=== PATIENT | male | born 1975 | race Caucasian/White ===

== ENCOUNTER 2019-07-28 11:28 | Inpatient (IN) | payer MEDICAID, OTHER ==
[~2019-07-28] VITALS: Ht 180.3 cm; Wt 92.1 kg
[2019-07-28] MEDS ORDERED: OLANZapine ORAL DISINTEGRATING TAB 5MG PO PRN (15:00)
[2019-07-28] MEDS ORDERED: MAALOX 30 ML SUSP *UDC PO PRN (15:15)
[2019-07-28] MEDS ORDERED: ACETAMINOPHEN TAB 650MG DOSE (2X325MG) PO PRN (15:15)
[2019-07-28] MEDS ORDERED: MOM 30ML SUSPENSION UDC PO PRN (15:15)
[2019-07-28 15:58] VITALS: BP 138/95
[2019-07-28 19:00] VITALS: BP 143/89
[2019-07-28] MEDS ORDERED: traZODone 50 MG TAB PO PRN (21:00)
[2019-07-28] MEDS: PALIPERIDONE 3 MG ER TAB (INVEGA) PO SCH (21:39)
[2019-07-28 21:49] VITALS: BP 140/86
[2019-07-28] MEDS: LORazepam 1 MG TAB PO SCH (22:01)
[2019-07-29 00:21] LABS: BASO # 0.1 10^3/uL (0.0-0.2); BASO % 0.6 % (0.0-1.0); EOS # 0.1 10^3/uL (0.0-0.5); EOS % 0.8 % (0.0-3.0); HEMATOCRIT 52.5 % (42.0-52.0); HEMOGLOBIN 16.5 g/dl (13.5-17.5); LYMPH # 2.5 10^3/uL (1.5-5.0); LYMPH % 22.7 % (24.0-44.0); MEAN CORPUSCULAR HEMOGLOBIN 28.3 pg (27.0-33.0); MEAN CORPUSCULAR HGB CONC 31.4 g/dl (32.0-36.5); MEAN CORPUSCULAR VOLUME 90.1 fl (80.0-96.0); MONO # 0.7 10^3/uL (0.0-0.8); MONO % 6.4 % (0.0-5.0); NEUTROPHILS # 7.7 10^3/uL (1.5-8.5); NEUTROPHILS % 69.2 % (36.0-66.0); PLATELET COUNT, AUTOMATED 146 10^3/uL (150-450); RED BLOOD COUNT 5.83 10^6/uL (4.30-6.10); WHITE BLOOD COUNT 11.1 10^3/uL (4.0-10.0)
[2019-07-29 00:27] LABS: OSMOLALITY SERUM 300 MOSM/KG (275-295)
[2019-07-29 00:42] LABS: ACETONE/KETONE 4.61 MG/DL (<2.81); ALBUMIN 4.2 GM/DL (3.2-5.2); ALT/SGPT 25 U/L (12-78); BILIRUBIN,TOTAL 0.8 MG/DL (0.2-1.0); BLOOD UREA NITROGEN 18 MG/DL (7-18); CARBON DIOXIDE LEVEL 24 MEQ/L (21-32); CHLORIDE LEVEL 110 MEQ/L (98-107); CREATININE FOR GFR 1.26 MG/DL (0.70-1.30); ETHYL ALCOHOL (ETHANOL) < 0.003 % (0.000-0.010); FREE THYROXINE INDEX 3.9 % (1.4-3.8); GLOMERULAR FILTRATION RATE > 60.0 (>60); GLUCOSE, FASTING 107 MG/DL (70-100); MAGNESIUM LEVEL 2.1 MG/DL (1.8-2.4); POTASSIUM SERUM 3.9 MEQ/L (3.5-5.1); SODIUM LEVEL 144 MEQ/L (136-145); T UPTAKE 36 % (33-40); THYROXINE (T4) 10.7 UG/DL (4.5-12.0); TOTAL PROTEIN 8.1 GM/DL (6.4-8.2)
--- NOTE | 2019-07-29 01:48 | HPEPDOC ---
General Date of Admission Jul 28, 2019 at 15:08 Date of Service: Jul 28, 2019 Chief Complaint The patient is a 43-year-old male Who presented to [facility] as a transfer from [facility] for suicidal thoughts. History of Present Illness Patient is a 43 year old male with a PMHX of Schizophrenia, Depression, Hx of Suicidal attempt (Reported to be with Antifreeze consumption) who presented to the [facility] ER as a transfer from [facility] after he was found to have suicidal thoughts. Patient presented to [facility] and reported he had a sick mind and had thoughts / voices of self-harm. He noted to staff there that he wanted to kill himself with knives. He was evaluated by medicine there and was transferred to our facility for psychiatric inpatient hospitalization. I was called to evaluate the patient after staff reported that he was noted to have possible lethargy and catatonia. Upon evaluation of the patient reported that he still has thoughts of self-harm, but had no specific complaints. Patient appears to be very poor historian. The details of his story do not match what has transpired prior to his arrival. He denied any chest pain, SOB, palpitations, cough, N/V, abdominal pain, C/D or dysuria. Denied fevers/chills. Home Medications No Active Prescriptions or Reported Meds Allergies Coded Allergies: No Known Allergies (Unverified , 07/28/19) Past Medical History Medical History Schizophrenia, Depression, Hx of Suicidal attempt (Reported to be with Antifreeze consumption) Surgical History Patient has denied any prior surgeries; however his history is unverifiable Family History - Patient has denied any prior family history; however again, this remains unverifiable Social History - Denies the use of alcohol, tobacco or illicit drugs - Transfer from [facility] for psychosis and suicidal ideation Review of Systems Other systems 10 point review of systems complete, all negative otherwise stated in HPI Vital Signs - Vitals: BP 140/86, HR 64, RR 16, Sat 95%RA, Temp 97.8F - General: Lying in bed, Limited speech Awake / Alert / Oriented to person only, Flat affect, No eye contact - HEENT: NC, AT, PERRLA - CVS: RRR, +S1S2, - Murmurs / rubs / gallops - Lungs: Fair air entry bilaterally, No appreciable wheezing / rales / rhonchi - Abdomen: Soft, Non-distended, Non-tender, - Extremities: No lower extremity edema, No calf tenderness - Neuro: No focal motor or sensory deficit - Skin: No visible rashes Laboratory Data Labs 24H Laboratory Tests 2 07/29/19 00:00: Immature Granulocyte % (Auto) 0.3, Neutrophils (%) (Auto) 69.2H, Lymphocytes (%) (Auto) 22.7L, Monocytes (%) (Auto) 6.4H, Eosinophils (%) (Auto) 0.8, Basophils (%) (Auto) 0.6, Neutrophils # (Auto) 7.7, Lymphocytes # (Auto) 2.5, Monocytes # (Auto) 0.7, Eosinophils # (Auto) 0.1, Basophils # (Auto) 0.1, Nucleated Red Blood Cells % (auto) 0.0, Anion Gap 10, Glomerular Filtration Rate > 60.0, Osmolality 300H, Lactic Acid Level 1.5, Calcium Level 9.0, Magnesium Level 2.1, Total Bilirubin 0.8, Aspartate Amino Transf (AST/SGOT) 12, Alanine Aminotransferase (ALT/SGPT) 25, Alkaline Phosphatase 114, Total Protein 8.1, Albumin 4.2, Albumin/Globulin Ratio 1.08, Thyroid Stimulating Hormone (TSH) 5.110H, Free Thyroxine Index 3.9H, Thyroxine (T4) 10.7, Triiodothyronine (T3) Uptake 36, Ethyl Alcohol Level < 0.003, B-Hydroxybutyrate 4.61H CBC/BMP Laboratory Tests 07/29/19 00:00 Plan / VTE VTE Prophylaxis Ordered?: Yes Plan Plan Suicidal ideation / Schizophrenia - Patient presented as a transfer from [facility] for suicidal ideatio n/psychosis - Patient was evaluated by medical personnel at [facility] and cleared for transfer to some [facility] - Patient was subsequently brought to [facility] ER and admitted to [facility] by Dr. Marrufo - This is currently being managed by psychiatry Lethargy - possibly 2/2 medications received, possibly 2/2 consumption of other - As called by [facility] you to evaluate patient for lethargy/catatonia - Currently patient appears to be hemodynamically stable and afebrile - Patient is not fully oriented; remains oriented only to person - Lab work completed at [facility] did reveal an elevation of his anion gap (21), suppression of bicarbonate (19), mild elevation of WBC (11. 7), osmolality (289), UA was negative for infection - but did reveal 3+ Ketones - Will repeat lab work here today; CBC / CMP / Mg / Osmolality / Lactic acid / Ethylene glycol / Acetate / Ketones / Ethanol DVT prophylaxis - Will c/w early ambulation [employer] was present for the duration of his history and physical examination Will continue to follow GARTH SANTO MD Jul 29, 2019 01:48
[2019-07-29 03:53] VITALS: BP 140/91
[2019-07-29] MEDS: LORazepam 1 MG TAB PO SCH ×3 (03:59→18:18)
[2019-07-29 06:22] VITALS: BP 128/72
[2019-07-29] MEDS: NICOTINE 21MG/24HR 1 EA TRANSDERMAL TD SCH (09:00)
[2019-07-29] MEDS: PALIPERIDONE 3 MG ER TAB (INVEGA) PO SCH (09:12)
--- NOTE | 2019-07-29 10:23 | MHHPEPDOC ---
[facility] History & Physical History and Physical DATE OF ADMISSION: Jul 28, 2019 at 15:08 New Patient Bang Li MRN: N/A Date of : N/A Date of Service: 07/29/2019 Chief Complaint "..." History of Present Illness The patient a 43-year-old man who was transferred from [facility], is brought to our inpatient unit due to bizarre behavior. He was brought in initially to [place] due to significant bizarre actions such as going into a neighbor's house and becoming mute, shaking backwards and forwards, engaging in unusual behavior. He was brought in and assessed where he was brought in for admission. He reportedly has a diagnosis of schizophrenia, however, he is completely catatonic at this time and unable to engage in any meaningful interview other than repeat the words "I want to go home." Thus, the information below was taken from the chart and extracted as appropriate. Review Of Systems Unable to determine due to patient's significant impairment. Past Psychiatric History Reportedly has a history of schizophrenia with multiple admissions to [facility] in the past. Per chart appears to report that he has had multiple suicide attempts 5 or 6 times by stabbing. Allergies Please see below. Family Psychiatric History Reportedly has a sister and a niece that has attempted suicide, but no history of substance problems reported. Social History The patient is a never man who is single with no children. He reports being employed at [employer], graduated the 10th grade. Currently living with a sibling by report. Substance Abuse History No toxicology taken, unclear if utilizes any significant substances. Medical History No major medical problems noted. Mental Status Examination General: Poor hygiene Speech: Mute Thought processes: Unknown MSK: Smooth and coordinated gait, no signs of tremors or involuntary orofacial movements Thought content: Unknown Abstract reasoning, and computation: Impaired Description of associations: Unknown Description of abnormal or psychotic thoughts: Not available Judgment: Impaired Insight: Impaired Orientation: Appears alert, but does not appear to interact significantly with this provider Cognition: Impaired Recent and remote memory: Unable to determine Attention span and concentration: Impaired secondary to thought process versus cognition Fund of knowledge: Unknown Mood: "I want to go home" Affect: Flat with little reactivity Diagnoses Schizophrenia Catatonia Alcohol use disorder, unspecified Assessment and Plan Schizophrenia: We'll discontinue Invega as likely provoking more catatonia, we'll continue Ativan 1 mg every 6 hours PO Catatonia: Ativan as above. We'll continue to monitor Alcohol use disorder: No signs of significant problems with vital signs, however, Ativan scheduled will cover for any alcohol withdrawal. Negative BAL on admission to the unit Disposition The patient will need an admission further for a significantly impairing psychosis. He is unable to interact well with any provider or other in order to engage in basic hygiene. He'll need to continue on a 1-1 due to his balance problems. Problem List 1. Altered thoughts. Initial Treatment Plan 1. Patient was admitted on a 9.39 legal status. 2. Complete history was obtained. 3. With patients permission, family will be contacted and database will be exp anded. 4. Patients medication regimen will be reviewed and changed accordingly. 5. Patient will be provided with protected environment. 6. Patient will be treated with individual, group, and milieu therapies. 7. Patient will receive supportive psych-education. 8. Discharge planning will commence immediately. 9. Outpatient follow-up treatment will be strongly recommended. 10. The initial treatment plan will focus initially on: Estimated Length Of Stay 5 days. Time Spent 70 minutes. Monday Vital Signs Vital Signs Date Time Temp Pulse Resp B/P (MAP) Pulse Ox O2 Delivery O2 Flow Rate FiO2 07/29/19 06:22 98.2 50 18 128/72 (90) 07/29/19 03:53 96 Room Air Laboratory Data 24H Labs Laboratory Tests 2 07/29/19 00:00: Immature Granulocyte % (Auto) 0.3, Neutrophils (%) (Auto) 69.2H, Lymphocytes (%) (Auto) 22.7L, Monocytes (%) (Auto) 6.4H, Eosinophils (%) (Auto) 0.8, Basophils (%) (Auto) 0.6, Neutrophils # (Auto) 7.7, Lymphocytes # (Auto) 2.5, Monocytes # (Auto) 0.7, Eosinophils # (Auto) 0.1, Basophils # (Auto) 0.1, Nucleated Red Blood Cells % (auto) 0.0, Anion Gap 10, Glomerular Filtration Rate > 60.0, Osmolality 300H, Lactic Acid Level 1.5, Calcium Level 9.0, Magnesium Level 2.1, Total Bilirubin 0.8, Aspartate Amino Transf (AST/SGOT) 12, Alanine Aminotransferase (ALT/SGPT) 25, Alkaline Phosphatase 114, Total Protein 8.1, Albumin 4.2, Albumin/Globulin Ratio 1.08, Thyroid Stimulating Hormone (TSH) 5.110H, Free Thyroxine Index 3.9H, Thyroxine (T4) 10.7, Triiodothyronine (T3) Uptake 36, Ethyl Alcohol Level < 0.003, B-Hydroxybutyrate 4.61H CBC/BMP Laboratory Tests 07/29/19 00:00 Medications No Active Prescriptions or Reported Meds Allergies Coded Allergies: No Known Allergies (Unverified , 07/28/19) MICHELLE BUENO DO Jul 29, 2019 10:22
[2019-07-29 10:37] VITALS: BP 150/86
[2019-07-29] MEDS ORDERED: LORazepam 0.5 MG TAB PO ONE (13:15)
--- NOTE | 2019-07-29 14:16 | IPNPDOC ---
Text Note Date of Service The patient was seen on 07/29/19. NOTE TIME OF SERVICE: 1:30 PM Mr. Colorado is a 43-year-old male with a past medical history of schizophrenia, and depression with a previous suicide attempt who was transferred from [facility] for management of depression with suicidal ideation SUBJECTIVE: Per discussion with the nursing staff. The patient ate his breakfast and lunch very well, but has not urinated or defecated. Bladder scan revealed retention of 300 mils of urine. The patient denies having any pain or any acute problems this afternoon OBJECTIVE: GEN: well-nourished / well developed / reclined in hospital bed HEENT: NCAT CVS: RRR/NMRG LUNGS: lungs are clear to auscultation bilaterally on room air ABDOMEN: Contour ( distended) / bowel sounds are present / the abdomen is firm but the patient does not grimace with palpation PSYCH: He has a flat affect and psychomotor slowing / his verbal responses slow ASSESEMENT & PLAN: 1. Depression/suicidal ideation. Plan: per primary. 2. Lethargy Possible catatonia versus adverse reaction to her medication Plan: Continue to monitor vitals / Ativan per primary team 3. Urinary and fecal retention Plan: Follow up repeat bladder scan w intermittent straight cath if >300ml / will consider starting tamsulosin / if he does not have a bowel movement t omorrow we will start a stool softerner 4. Essential Hypertension His target blood pressure at his age is 120/80 or less. Plan: Because his target systolic blood pressure is greater than 20 millimeters mercury above the target we will start amlodipine 2.5 mg daily 5. Hyperglycemia. Beta hydroxybutyrate and osmolality were elevated, but the tox screen was negative for ethyl alcohol. Ethylene glycol is negative. The anion gap was within normal limits Plan: f/u A1C to r/o DM DISPO pending course VS,Fishbone, I+O VS, Fishbone, I+O Laboratory Tests 07/29/19 00:00 Vital Signs Date Time Temp Pulse Resp B/P (MAP) Pulse Ox O2 Delivery O2 Flow Rate FiO2 07/29/19 10:37 80 17 150/86 (107) 96 07/29/19 06:22 98.2 07/29/19 03:53 Room Air I&O- Last 24 Hours up to 6 AM 1/20/20 06:00 Output Total 0 ml Balance 0 ml RAJENDRA GALAN MD Jul 29, 2019 14:16
[2019-07-29] MEDS ORDERED: LORazepam 0.5 MG TAB PO SCH (16:00)
[2019-07-29 16:55] VITALS: BP 138/80
[2019-07-29 18:22] VITALS: BP 134/74
[2019-07-30] VITALS: BP 105/65
[2019-07-30 00:37] LABS: HEMOGLOBIN A1c 5.2 %
[2019-07-30] MEDS: LORazepam 1 MG TAB PO SCH ×4 (06:05→17:51)
[2019-07-30 06:44] VITALS: BP 142/90
[2019-07-30] MEDS: NICOTINE 21MG/24HR 1 EA TRANSDERMAL TD SCH (08:31)
--- NOTE | 2019-07-30 09:27 | MHIPNPDOC ---
[facility] Progress Note Progress Note Inpatient Progress Note Bang Li MRN: N/A Date of : N/A Date of Service: 07/30/2019 History of Present Illness Patient presented catatonic with a history of schizophrenia and significant mental health transfer from [place]. Interval History Psychiatric symptoms today: Affective: Unable to determine. Psychotic: Significant catatonic behavior with strange emotions, has less problems with eating more oral intake than previous. Converses in more than 1 sentence at a time. Anxiety: Unable to screen. Misc: Still disorganized behavior. Group Attendance: No groups gone to today. Behavioral problems/significant events overnight: The patient reports he wants to go "home," however he requires a sitter due to his balance. He has had no falls but continues to be disorganized. Staff Report: The patient continues to be disorganized, but has been improving in terms of his catatonic behavior. He still says only a few words at a time, but appears slightly more interactive. Review Of Systems Unable to determine due to patient's mental status. Psychotherapy None on this visit. Vital Signs Reviewed. Mental Status Examination General: Fair hygiene Speech: Nearly mute Thought processes: Appears linear MSK: Psychomotor retardation Thought content: Unknown Abstract reasoning, and computation: Appears impaired Description of associations: Appears impaired Description of abnormal or psychotic thoughts: Unknown Judgment: impaired Insight: impaired Orientation: Appears alert and able to interact Cognition: Slowed Recent and remote memory: Impaired Attention span and concentration: Impaired Fund of knowledge: Unknown Mood: "I want to go home" Affect: Profoundly flat and dysthymic Diagnoses Schizophrenia. Catatonia. Alcohol use disorder, unspecified. Assessment and Plan Schizophrenia: Will continue to hold off on neuroleptics until catatonia resolves. Catatonia: Continue Ativan. Alcohol use disorder: Will continue Ativan for catatonia. Continue to screen for any dysregulation consistent with alcohol withdrawal, as unknown amount of alcohol use prior. Disposition The patient will need a further inpatient admission due to his severe impairing psychosis and catatonia, making him unable to care for himself. Time Spent 15 minutes. Monday Vital Signs Vital Signs Date Time Temp Pulse Resp B/P (MAP) Pulse Ox O2 Delivery O2 Flow Rate FiO2 07/30/19 08:30 84 140/90 07/30/19 06:44 97.3 14 95 Room Air Current Medications Current Medications Medications (Trade) Dose Ordered Sig/Carri Route PRN Reason Start Time Stop Time Status Last Admin Dose Admin Acetaminophen (Tylenol Tab) 650 mg Q6HP PRN PO HEADACHE or DISCOMFORT 07/28/19 15:15 Al Hydrox/Mg Hydrox/Simethicone (Mylanta) 30 ml Q4HP PRN PO HEARTBURN/INDIGESTION 07/28/19 15:15 Amlodipine Besylate (Norvasc) 2.5 mg DAILY PO 07/29/19 09:00 07/30/19 08:37 DC 07/30/19 08:30 Amlodipine Besylate (Norvasc) 5 mg DAILY PO 07/31/19 09:00 Home Med (Med Rec Complete!) ASDIRECTED XX 07/28/19 12:45 07/28/19 12:44 DC Lorazepam (Ativan) 0.5 mg TID PO 07/29/19 16:00 07/29/19 13:08 DC Lorazepam (Ativan) 1 mg Q6H PO 07/28/19 22:00 07/29/19 13:09 DC 07/29/19 10:33 Lorazepam (Ativan) 1 mg Q6H PO 07/29/19 18:00 07/30/19 06:05 Magnesium Hydroxide (Milk Of Magnesia) 30 ml DAILYPRN PRN PO CONSTIPATION 07/28/19 15:15 Nicotine (Nicoderm Cq 21mg) 1 patch DAILY TD 07/29/19 09:00 Olanzapine (ZyPREXA ZYDIS) 10 mg TIDP PRN PO ANXIETY/AGITATION 07/28/19 15:00 07/28/19 21:39 Paliperidone (Invega) 3 mg BID PO 07/28/19 21:00 07/29/19 12:58 DC 07/29/19 09:12 Trazodone HCl (Desyrel) 50 mg QHSP PRN PO INSOMNIA 07/28/19 21:00 07/28/19 21:39 Allergies Coded Allergies: No Known Allergies (Unverified , 07/28/19) MICHELLE BUENO DO Jul 30, 2019 09:27
[2019-07-30 12:00] VITALS: BP 135/88
--- NOTE | 2019-07-30 14:58 | IPNPDOC ---
Text Note Date of Service The patient was seen on 07/30/19. NOTE TIME OF SERVICE: 1205 PM Mr. [place] is a 43-year-old male with a past medical history of schizophrenia, and depression with a previous suicide attempt who was transferred from [facility] for management of depression with suicidal ideation; we were consulted to comanage his medical problems SUBJECTIVE: Per discussion with the nursing staff , the patient voided and his catatonia is resolving. Currently the patient denies having any acute complaints OBJECTIVE: GEN: well-nourished / well developed / reclined in hospital bed HEENT: NCAT PSYCH: He has a flat affect and psychomotor slowing is less prominent today than it was yesterday / his verbal response is not as low as it was yesterday ASSESEMENT & PLAN: 1. Depression/suicidal ideation. Plan: per primary. 2. Catatonia- resolving Plan: per primary team 3. Urinary and fecal retention - resolving 4. Essential Hypertension His blood pressure still suboptimally controlled Plan: Increase amlodipine to 5 mg daily 5. Transient Hyperglycemia. His A1c was 5.2 Thank you for consulting us, we will sign off, please don't hesitate to contact us if new issues arise. VS,Fishbone, I+O VS, Fishbone, I+O Vital Signs Date Time Temp Pulse Resp B/P (MAP) Pulse Ox O2 Delivery O2 Flow Rate FiO2 07/30/19 12:00 80 16 135/88 (104) 98 07/30/19 06:44 97.3 Room Air I&O- Last 24 Hours up to 6 AM 07/30/19 06:00 Output Total 1050 ml Balance -1050 ml RAJENDRA GALAN MD Jul 30, 2019 14:58
[2019-07-30 17:49] VITALS: BP 146/88
[2019-07-31 00:14] VITALS: BP 118/59
[2019-07-31] MEDS: LORazepam 1 MG TAB PO SCH ×4 (05:51→21:00)
[2019-07-31 06:02] VITALS: BP 141/80
--- NOTE | 2019-07-31 07:27 | MHIPNPDOC ---
[facility] Progress Note Progress Note Inpatient Progress Note Bang Li MRN: N/A Date of : N/A Date of Service: 07/31/2019 History of Present Illness Patient presented catatonic with a history of schizophrenia and significant mental health transfer from home. Interval History Psychiatric symptoms today: Affective: Unable to determine. Psychotic: Still psychotic behavior in the terms of disorganization, inability to care for self, no bathing, does take significant prompting to eat. Anxiety: Unable to screen. Misc: Still disorganized behavior. Group Attendance: No groups gone to today. Behavioral problems/significant events overnight: The patient reports he wants to go "home," however he requires a sitter due to his balance. He has had no falls but continues to be disorganized. Staff Report: The patient continues to be catatonic and unable to care for himself. His disorganization makes it difficult to coordinate feeding. Review Of Systems General: Denies fever or appetite changes Cardiovascular: Denies Chest pain or palpations GI: Denies Nausea, vomiting, or bowel changes Respiratory: Denies shortness of breath or cough Neuro: Denies dizziness, tremors Derm: Denies any rashes or pruritus : Denies any dysuria or urinary problems MSK: Denies any muscle tightness or stiffness HEENT: Denies any vision changes or headaches Heme/Lymph: denies any bruising or bleeding Endo: denies any cold/heat intolerance or water intake changes Psychotherapy None on this visit. Vital Signs Reviewed. Mental Status Examination General: Fair hygiene Speech: Nearly mute Thought processes: Appears linear MSK: Psychomotor retardation Thought content: Unknown Abstract reasoning, and computation: Appears impaired Description of associations: Appears impaired Description of abnormal or psychotic thoughts: Unknown Judgment: impaired Insight: impaired Orientation: Appears alert and able to interact Cognition: Slowed Recent and remote memory: Impaired Attention span and concentration: Impaired Fund of knowledge: Unknown Mood: "I want to go home" Affect: Profoundly flat and dysthymic Diagnoses Schizophrenia. Catatonia. Alcohol use disorder, unspecified. Assessment and Plan Schizophrenia: Will try a small trial of Clozaril 25 mg with spacing for Ativan. Catatonia: Continue Ativan. Alcohol use disorder: Will continue Ativan for catatonia. Continue to screen for any dysregulation consistent with alcohol withdrawal, as unknown amount of alcohol use prior. Disposition The patient will need a further inpatient admission due to his severe impairing psychosis and catatonia, making him unable to care for himself. Time Spent 15 minutes. Monday Vital Signs Vital Signs Date Time Temp Pulse Resp B/P (MAP) Pulse Ox O2 Delivery O2 Flow Rate FiO2 07/31/19 06:02 97.9 62 16 141/80 (100) 07/31/19 00:14 100 Room Air Current Medications Current Medications Medications (Trade) Dose Ordered Sig/Carri Route PRN Reason Start Time Stop Time Status Last Admin Dose Admin Acetaminophen (Tylenol Tab) 650 mg Q6HP PRN PO HEADACHE or DISCOMFORT 07/28/19 15:15 Al Hydrox/Mg Hydrox/Simethicone (Mylanta) 30 ml Q4HP PRN PO HEARTBURN/INDIGESTION 07/28/19 15:15 Amlodipine Besylate (Norvasc) 2.5 mg DAILY PO 07/29/19 09:00 07/30/19 08:37 DC 07/30/19 08:30 Amlodipine Besylate (Norvasc) 5 mg DAILY PO 07/31/19 09:00 Home Med (Med Rec Complete!) ASDIRECTED XX 07/28/19 12:45 07/28/19 12:44 DC Lorazepam (Ativan) 0.5 mg TID PO 07/29/19 16:00 07/29/19 13:08 DC Lorazepam (Ativan) 1 mg Q6H PO 07/28/19 22:00 07/29/19 13:09 DC 07/29/19 10:33 Lorazepam (Ativan) 1 mg Q6H PO 07/29/19 18:00 07/31/19 05:51 Magnesium Hydroxide (Milk Of Magnesia) 30 ml DAILYPRN PRN PO CONSTIPATION 07/28/19 15:15 Nicotine (Nicoderm Cq 21mg) 1 patch DAILY TD 07/29/19 09:00 Olanzapine (ZyPREXA ZYDIS) 10 mg TIDP PRN PO ANXIETY/AGITATION 07/28/19 15:00 07/30/19 15:16 DC 07/28/19 21:39 Paliperidone (Invega) 3 mg BID PO 07/28/19 21:00 07/29/19 12:58 DC 07/29/19 09:12 Trazodone HCl (Desyrel) 50 mg QHSP PRN PO INSOMNIA 07/28/19 21:00 07/28/19 21:39 Allergies Coded Allergies: No Known Allergies (Unverified , 07/28/19) MICHELLE BUENO DO Jul 31, 2019 07:27
[2019-07-31] MEDS: amLODIPine 5 MG TAB PO SCH (08:20)
[2019-07-31] MEDS: NICOTINE 21MG/24HR 1 EA TRANSDERMAL TD SCH (08:21)
[2019-07-31 15:55] VITALS: BP 133/73
[2019-07-31 15:57] VITALS: BP 133/73
[2019-07-31] MEDS ORDERED: cloZAPine 25 MG TAB (S0136) PO SCH (21:00)
[2019-07-31 21:40] VITALS: BP 125/68
[2019-08-01 06:31] VITALS: BP 138/87
[2019-08-01 08:32] VITALS: BP 103/55
[2019-08-01] MEDS: NICOTINE 21MG/24HR 1 EA TRANSDERMAL TD SCH (09:00)
[2019-08-01] MEDS: amLODIPine 5 MG TAB PO SCH (09:00)
[2019-08-01] MEDS: LORazepam 1 MG TAB PO SCH ×4 (09:00→20:13)
[2019-08-01 09:36] VITALS: BP 110/72
--- NOTE | 2019-08-01 10:53 | MHIPNPDOC ---
[facility] Progress Note Progress Note Inpatient Progress Note Bang Li MRN: N/A Date of : N/A Date of Service: 08/01/2019 History of Present Illness Patient presented catatonic with a history of schizophrenia and significant mental health transfer from home. Interval History Psychiatric symptoms today: Affective: Unable to determine. Psychotic: The patient is still having significant psychotic behavior, appears to be more catatonic, more frozen and repeating words, unable to engage in basic behaviors. Anxiety: Unable to screen. Misc: Still disorganized behavior. Group Attendance: No groups gone to today. Behavioral problems/significant events overnight: The patient reports he wants to go "home," however he requires a sitter due to his balance. He has had no falls but continues to be disorganized. Staff Report: The patient continues to be catatonic and unable to care for himself. His disorganization makes it difficult to coordinate feeding. Review Of Systems Unable to obtain due to mental status. Psychotherapy None on this visit. Vital Signs Reviewed. Mental Status Examination General: Poor hygiene Speech: Nearly mute Thought processes: Appears linear MSK: Psychomotor retardation Thought content: Unknown Abstract reasoning, and computation: Appears impaired Description of associations: Appears impaired Description of abnormal or psychotic thoughts: Unknown Judgment: impaired Insight: impaired Orientation: Appears alert and able to interact Cognition: Slowed Recent and remote memory: Impaired Attention span and concentration: Impaired Fund of knowledge: Unknown Mood: "I want to go home" Affect: Profoundly flat and dysthymic Diagnoses Schizophrenia. Catatonia. Alcohol use disorder, unspecified. Assessment and Plan Schizophrenia: Discontinue Clozaril 25 mg as appears to make patient worse. Continue Ativan. Catatonia: Will do CMP which appears normal and urinalysis to monitor for rhabdo and other problems consistent with catatonia and starvation. Alcohol use disorder: Will continue Ativan for catatonia. Continue to screen for any dysregulation consistent with alcohol withdrawal, as unknown amount of alcohol use prior. Disposition The patient will need a further inpatient admission due to his severe impairing psychosis and catatonia, making him unable to care for himself. Time Spent 15 minutes. Vital Signs Vital Signs Date Time Temp Pulse Resp B/P (MAP) Pulse Ox O2 Delivery O2 Flow Rate FiO2 08/01/19 09:36 66 16 110/72 (85) 97 08/01/19 06:31 97.5 Room Air Current Medications Current Medications Medications (Trade) Dose Ordered Sig/Carri Route PRN Reason Start Time Stop Time Status Last Admin Dose Admin Acetaminophen (Tylenol Tab) 650 mg Q6HP PRN PO HEADACHE or DISCOMFORT 07/28/19 15:15 Al Hydrox/Mg Hydrox/Simethicone (Mylanta) 30 ml Q4HP PRN PO HEARTBURN/INDIGESTION 07/28/19 15:15 Amlodipine Besylate (Norvasc) 2.5 mg DAILY PO 07/29/19 09:00 07/30/19 08:37 DC 07/30/19 08:30 Amlodipine Besylate (Norvasc) 5 mg DAILY PO 07/31/19 09:00 07/31/19 08:20 Clozapine (Clozaril) 25 mg QHS PO 07/31/19 21:00 07/31/19 21:33 Home Med (Med Rec Complete!) ASDIRECTED XX 07/28/19 12:45 07/28/19 12:44 DC Lorazepam (Ativan) 0.5 mg TID PO 07/29/19 16:00 07/29/19 13:08 DC Lorazepam (Ativan) 1 mg Q6H PO 07/28/19 22:00 07/29/19 13:09 DC 07/29/19 10:33 Lorazepam (Ativan) 1 mg Q6H PO 07/29/19 18:00 07/31/19 08:26 DC 07/31/19 05:51 Lorazepam (Ativan) 1 mg TID PO 07/31/19 16:00 08/01/19 09:38 Magnesium Hydroxide (Milk Of Magnesia) 30 ml DAILYPRN PRN PO CONSTIPATION 07/28/19 15:15 Nicotine (Nicoderm Cq 21mg) 1 patch DAILY TD 07/29/19 09:00 Olanzapine (ZyPREXA ZYDIS) 10 mg TIDP PRN PO ANXIETY/AGITATION 07/28/19 15:00 07/30/19 15:16 DC 07/28/19 21:39 Paliperidone (Invega) 3 mg BID PO 07/28/19 21:00 07/29/19 12:58 DC 07/29/19 09:12 Trazodone HCl (Desyrel) 50 mg QHSP PRN PO INSOMNIA 07/28/19 21:00 07/28/19 21:39 Allergies Coded Allergies: No Known Allergies (Unverified , 07/28/19) MICHELLE BUENO DO Aug 01, 2019 10:53
[2019-08-01 11:59] LABS: ALBUMIN 3.3 GM/DL (3.2-5.2); ALT/SGPT 36 U/L (12-78); BILIRUBIN,TOTAL 0.6 MG/DL (0.2-1.0); BLOOD UREA NITROGEN 13 MG/DL (7-18); CALCIUM LEVEL 8.3 MG/DL (8.5-10.1); CARBON DIOXIDE LEVEL 24 MEQ/L (21-32); CHLORIDE LEVEL 112 MEQ/L (98-107); CREATININE FOR GFR 1.01 MG/DL (0.70-1.30); GLOMERULAR FILTRATION RATE > 60.0 (>60); GLUCOSE, FASTING 75 MG/DL (70-100); POTASSIUM SERUM 4.1 MEQ/L (3.5-5.1); SODIUM LEVEL 143 MEQ/L (136-145); TOTAL PROTEIN 6.6 GM/DL (6.4-8.2)
[2019-08-01 15:51] VITALS: BP 136/76
[2019-08-02 07:05] VITALS: BP_SYST 120; BP_SYST 132; BP_DIAS 77; BP_DIAS 80
[2019-08-02 07:14] LABS: APPEARANCE, URINE CLEAR (CLEAR); BACTERIA, URINE AUTO NEGATIVE (NEGATIVE); BILIRUBIN, URINE AUTO NEGATIVE (NEGATIVE); BLOOD, URINE BLOOD NEGATIVE (NEGATIVE); COLOR, URINE YELLOW (YELLOW); GLUCOSE, URINE (UA) AUTO NEGATIVE (NEGATIVE); KETONE, URINE AUTO NEGATIVE (NEGATIVE); LEUKOCYTE ESTERASE, URINE AUTO NEGATIVE (NEGATIVE); MUCUS, URINE SMALL (NEGATIVE); NITRITE, URINE AUTO NEGATIVE (NEGATIVE); PROTEIN, URINE AUTO NEGATIVE (NEGATIVE); RBC, URINE AUTO 2 /HPF (0-3); SPECIFIC GRAVITY URINE AUTO 1.025 (1.002-1.035); SQUAMOUS EPITHELIAL CELL UR AU 0 /HPF (0-6); WBC, URINE AUTO 1 /HPF (0-3)
[2019-08-02] MEDS: NICOTINE 21MG/24HR 1 EA TRANSDERMAL TD SCH (09:00)
[2019-08-02] MEDS: amLODIPine 5 MG TAB PO SCH (09:00)
[2019-08-02] MEDS: LORazepam 1 MG TAB PO SCH ×3 (09:00→20:49)
--- NOTE | 2019-08-02 11:05 | MHIPNPDOC ---
[facility] Progress Note Progress Note Inpatient Progress Note Bang Li MRN: N/A Date of : N/A Date of Service: 08/02/2019 History of Present Illness Patient presented catatonic with a history of schizophrenia and significant mental health transfer from home. Interval History Psychiatric symptoms today: The patient makes no effort to respond other than saying "I want to go home," stares off blankly, nearly mute. Affective: Unable to determine. Psychotic: The patient still having very disorganized behavior but has made some improvements in showering, has been eating more, although repeats various words, is generally negativistic. Anxiety: Unable to screen. Misc: Still has some disorganized behavior, unable to coordinate without significant prompting, basic hygiene. Group Attendance: No groups gone to today. Patient was able to urinate and was more directable. Behavioral problems/significant events overnight: None reported. Staff Report: The patient is making some improvements in terms of basic hygiene and feeding but still requires significant prompting. Review Of Systems Unable to obtain due to mental status. Psychotherapy None on this visit. Vital Signs Reviewed. Mental Status Examination General: Poor hygiene Speech: Nearly mute Thought processes: Appears linear MSK: Psychomotor retardation Thought content: Unknown Abstract reasoning, and computation: Appears impaired Description of associations: Appears impaired Description of abnormal or psychotic thoughts: Unknown Judgment: impaired Insight: impaired Orientation: Appears alert and able to interact Cognition: Slowed Recent and remote memory: Impaired Attention span and concentration: Impaired Fund of knowledge: Unknown Mood: "I want to go home" Affect: Profoundly flat and dysthymic Diagnoses Schizophrenia. Catatonia. Alcohol use disorder, unspecified. Assessment and Plan Schizophrenia: Continue to hold off on neuroleptics. Patient making progress with catatonia treatment. Catatonia: CMP and urinalysis unremarkable. We will continue to monitor patient feeding more. Alcohol use disorder: Will continue Ativan for catatonia. Continue to screen for any dysregulation consistent with alcohol withdrawal, as unknown amount of alcohol use prior. Disposition The patient will need a further inpatient admission due to his severe impairing psychosis and catatonia, making him unable to care for himself. Time Spent 15 minutes. Monday Vital Signs Vital Signs Date Time Temp Pulse Resp B/P (MAP) Pulse Ox O2 Delivery O2 Flow Rate FiO2 08/02/19 09:00 89 140/72 08/02/19 07:05 98.1 14 1/23/20 15:51 97 08/01/19 06:31 Room Air Laboratory Data 24H Labs Laboratory Tests 2 08/01/19 11:14: Anion Gap 7L, Glomerular Filtration Rate > 60.0, Calcium Level 8.3L, Total Bilirubin 0.6, Aspartate Amino Transf (AST/SGOT) 17, Alanine Aminotransferase (ALT/SGPT) 36, Alkaline Phosphatase 97, Total Protein 6.6, Albumin 3.3, Albumin/Globulin Ratio 1.00 CBC/BMP Laboratory Tests 08/01/19 11:14 Current Medications Current Medications Medications (Trade) Dose Ordered Sig/Crari Route PRN Reason Start Time Stop Time Status Last Admin Dose Admin Acetaminophen (Tylenol Tab) 650 mg Q6HP PRN PO HEADACHE or DISCOMFORT 07/28/19 15:15 Al Hydrox/Mg Hydrox/Simethicone (Mylanta) 30 ml Q4HP PRN PO HEARTBURN/INDIGESTION 07/28/19 15:15 Amlodipine Besylate (Norvasc) 2.5 mg DAILY PO 07/29/19 09:00 07/30/19 08:37 DC 07/30/19 08:30 Amlodipine Besylate (Norvasc) 5 mg DAILY PO 07/31/19 09:00 07/31/19 08:20 Clozapine (Clozaril) 25 mg QHS PO 07/31/19 21:00 08/01/19 12:16 DC 07/31/19 21:33 Home Med (Med Rec Complete!) ASDIRECTED XX 07/28/19 12:45 07/28/19 12:44 DC Lorazepam (Ativan) 0.5 mg TID PO 07/29/19 16:00 07/29/19 13:08 DC Lorazepam (Ativan) 1 mg Q6H PO 07/28/19 22:00 07/29/19 13:09 DC 07/29/19 10:33 Lorazepam (Ativan) 1 mg Q6H PO 07/29/19 18:00 07/31/19 08:26 DC 07/31/19 05:51 Lorazepam (Ativan) 1 mg TID PO 07/31/19 16:00 08/01/19 09:38 Magnesium Hydroxide (Milk Of Magnesia) 30 ml DAILYPRN PRN PO CONSTIPATION 07/28/19 15:15 Nicotine (Nicoderm Cq 21mg) 1 patch DAILY TD 07/29/19 09:00 Olanzapine (ZyPREXA ZYDIS) 10 mg TIDP PRN PO ANXIETY/AGITATION 07/28/19 15:00 07/30/19 15:16 DC 07/28/19 21:39 Paliperidone (Invega) 3 mg BID PO 07/28/19 21:00 07/29/19 12:58 DC 07/29/19 09:12 Trazodone HCl (Desyrel) 50 mg QHSP PRN PO INSOMNIA 07/28/19 21:00 07/28/19 21:39 Allergies Coded Allergies: No Known Allergies (Unverified , 07/28/19) MICHELLE BUENO DO Aug 02, 2019 11:05
[2019-08-02 16:00] VITALS: BP 134/78
[2019-08-02 20:49] VITALS: BP 115/64
[2019-08-03] MEDS ORDERED: LORazepam 2 MG/ML VIAL (J2060) IM ONE (04:30)
[2019-08-03] MEDS ORDERED: HALOPERIDOL 5 MG/ML VIAL (J1630) IM ONE (05:15)
[2019-08-03 06:31] VITALS: BP 125/62
[2019-08-03] MEDS: amLODIPine 5 MG TAB PO SCH (09:00)
[2019-08-03] MEDS: NICOTINE 21MG/24HR 1 EA TRANSDERMAL TD SCH (09:00)
[2019-08-03] MEDS: LORazepam 1 MG TAB PO SCH ×3 (09:00→21:00)
[2019-08-03 16:30] VITALS: BP 124/67
[2019-08-03 21:22] VITALS: BP 128/69
[2019-08-04 06:23] VITALS: BP 123/80
[2019-08-04] MEDS: LORazepam 1 MG TAB PO SCH ×3 (09:00→20:50)
[2019-08-04] MEDS: NICOTINE 21MG/24HR 1 EA TRANSDERMAL TD SCH (09:00)
[2019-08-04] MEDS: amLODIPine 5 MG TAB PO SCH (09:00)
[2019-08-04 16:49] VITALS: BP 121/65
[2019-08-04 20:51] VITALS: BP 125/79
[2019-08-05 06:26] VITALS: BP 109/59
[2019-08-05] MEDS: **PENDING PPD ENTRY XX SCH (09:00)
[2019-08-05] MEDS: NICOTINE 21MG/24HR 1 EA TRANSDERMAL TD SCH (09:00)
--- NOTE | 2019-08-05 09:01 | MHIPNPDOC ---
[facility] Progress Note Progress Note Inpatient Progress Note Bagn Li MRN: N/A Date of : N/A Date of Service: 08/05/2019 History of Present Illness Patient presented catatonic with a history of schizophrenia and significant mental health transfer from home. Interval History Psychiatric symptoms today: The patient continues to be bizarre, sitting in bed, staring off, difficult to redirect. Affective: Unable to determine. Psychotic: The patient still having very disorganized behavior but has made some improvements in showering, has been eating more, although repeats various words, is generally negativistic. Anxiety: Unable to screen. Misc: Still has some disorganized behavior, unable to coordinate without sig nificant prompting, basic hygiene. Group Attendance: No groups gone to today. Patient was able to urinate and was more directable. Behavioral problems/significant events overnight: None reported. Staff Report: The patient is making some improvements in terms of basic hygiene and feeding but still requires significant prompting. Review Of Systems Unable to determine due to mental status. Psychotherapy None on this visit. Vital Signs Reviewed. Mental Status Examination General: Poor hygiene Speech: Nearly mute Thought processes: Appears linear MSK: Psychomotor retardation Thought content: Unknown Abstract reasoning, and computation: Appears impaired Description of associations: Appears impaired Description of abnormal or psychotic thoughts: Unknown Judgment: impaired Insight: impaired Orientation: Appears alert and able to interact Cognition: Slowed Recent and remote memory: Impaired Attention span and concentration: Impaired Fund of knowledge: Unknown Mood: "I want to go home" Affect: Profoundly flat and dysthymic Diagnoses Schizophrenia. Catatonia. Alcohol use disorder, unspecified. Assessment and Plan Schizophrenia: We will try Abilify 5 mg nightly as he is improving on the Ativan. Catatonia: Continue Ativan, patient is able to feed. Alcohol use disorder: Will continue Ativan for catatonia. Continue to screen for any dysregulation consistent with alcohol withdrawal, as unknown amount of alcohol use prior. Disposition The patient will need a further inpatient admission due to his severe impairing psychosis and catatonia, making him unable to care for himself. The patient will be converted to [facility] and referral for [place] is in process. Time Spent 15 minutes. Monday Vital Signs Vital Signs Date Time Temp Pulse Resp B/P (MAP) Pulse Ox O2 Delivery O2 Flow Rate FiO2 08/05/19 06:26 98.5 54 16 109/59 (76) 08/04/19 20:51 96 Room Air Current Medications Current Medications Medications (Trade) Dose Ordered Sig/Carri Route PRN Reason Start Time Stop Time Status Last Admin Dose Admin Acetaminophen (Tylenol Tab) 650 mg Q6HP PRN PO HEADACHE or DISCOMFORT 07/28/19 15:15 Al Hydrox/Mg Hydrox/Simethicone (Mylanta) 30 ml Q4HP PRN PO HEARTBURN/INDIGESTION 07/28/19 15:15 Amlodipine Besylate (Norvasc) 2.5 mg DAILY PO 07/29/19 09:00 07/30/19 08:37 DC 07/30/19 08:30 Amlodipine Besylate (Norvasc) 5 mg DAILY PO 07/31/19 09:00 07/31/19 08:20 Clozapine (Clozaril) 25 mg QHS PO 07/31/19 21:00 08/01/19 12:16 DC 07/31/19 21:33 Home Med (Med Rec Complete!) ASDIRECTED XX 07/28/19 12:45 07/28/19 12:44 DC Lorazepam (Ativan) 0.5 mg TID PO 07/29/19 16:00 07/29/19 13:08 DC Lorazepam (Ativan) 1 mg Q6H PO 07/28/19 22:00 07/29/19 13:09 DC 07/29/19 10:33 Lorazepam (Ativan) 1 mg Q6H PO 07/29/19 18:00 07/31/19 08:26 DC 07/31/19 05:51 Lorazepam (Ativan) 1 mg TID PO 07/31/19 16:00 08/03/19 15:02 Magnesium Hydroxide (Milk Of Magnesia) 30 ml DAILYPRN PRN PO CONSTIPATION 07/28/19 15:15 Nicotine (Nicoderm Cq 21mg) 1 patch DAILY TD 07/29/19 09:00 Olanzapine (ZyPREXA ZYDIS) 10 mg TIDP PRN PO ANXIETY/AGITATION 07/28/19 15:00 07/30/19 15:16 DC 07/28/19 21:39 Paliperidone (Invega) 3 mg BID PO 07/28/19 21:00 07/29/19 12:58 DC 07/29/19 09:12 Trazodone HCl (Desyrel) 50 mg QHSP PRN PO INSOMNIA 07/28/19 21:00 07/28/19 21:39 Allergies Coded Allergies: No Known Allergies (Unverified , 07/28/19) MICHELLE BUENO DO Aug 05, 2019 09:01
[2019-08-05] MEDS: LORazepam 1 MG TAB PO SCH ×3 (09:30→20:30)
[2019-08-05] MEDS: amLODIPine 5 MG TAB PO SCH (09:30)
[2019-08-05] MEDS ORDERED: TUBERCULIN PPD 5 UNITS/0.1 ML ID ONE (10:30)
[2019-08-06] MEDS: **PENDING PPD ENTRY XX SCH (09:00)
[2019-08-06] MEDS: LORazepam 1 MG TAB PO SCH ×3 (09:00→21:00)
[2019-08-06] MEDS: NICOTINE 21MG/24HR 1 EA TRANSDERMAL TD SCH (09:00)
[2019-08-06] MEDS: amLODIPine 5 MG TAB PO SCH (09:00)
--- NOTE | 2019-08-06 10:42 | MHIPNPDOC ---
[facility] Progress Note Progress Note Inpatient Progress Note Bang Li MRN: N/A Date of : N/A Date of Service: 08/06/2019 History of Present Illness Patient presented catatonic with a history of schizophrenia and significant mental health transfer from home. Interval History Psychiatric symptoms today: The patient is met with, but is still difficult to converse with. He walks around aimlessly, saying that he "wants to go home," asking the question repeatedly, saying "I'm fine" in a bizarre manner. Affective: Unable to determine. Psychotic: The patient still having very disorganized behavior but has made some improvements in showering, has been eating more, although repeats various words, is generally negativistic. Anxiety: Unable to screen. Misc: Poor sleeping behavior, does require prompting for eating. Group Attendance: No groups gone to today. Behavioral problems/significant events overnight: None reported. Staff Report: The patient is making some improvements in terms of basic hygiene and feeding but still requires significant prompting. Review Of Systems Unable to determine due to mental status. Psychotherapy None on this visit. Vital Signs Reviewed. Mental Status Examination General: Poor hygiene Speech: Nearly mute Thought processes: Appears linear MSK: Psychomotor retardation Thought content: Unknown Abstract reasoning, and computation: Appears impaired Description of associations: Appears impaired Description of abnormal or psychotic thoughts: Unknown Judgment: impaired Insight: impaired Orientation: Appears alert and able to interact Cognition: Slowed Recent and remote memory: Impaired Attention span and concentration: Impaired Fund of knowledge: Unknown Mood: "I want to go home" Affect: Profoundly flat and dysthymic Diagnoses Schizophrenia. Catatonia. Alcohol use disorder, unspecified. Assessment and Plan Schizophrenia: Increase Abilify to 10 mg nightly. Catatonia: Continue Ativan, patient is able to feed. Alcohol use disorder: Will continue Ativan for catatonia. Continue to screen for any dysregulation consistent with alcohol withdrawal, as unknown amount of alcohol use prior. Disposition The patient will need a further inpatient admission due to his severe impairing psychosis and catatonia, making him unable to care for himself. The patient will be converted to [facility] and referral for [place] is in process. Time Spent 15 minutes. Monday Vital Signs Vital Signs Date Time Temp Pulse Resp B/P (MAP) Pulse Ox O2 Delivery O2 Flow Rate FiO2 08/06/19 07:58 Room Air 1/27/20 09:30 79 109/59 08/05/19 09:13 97 08/05/19 06:26 98.5 16 Current Medications Current Medications Medications (Trade) Dose Ordered Sig/Carri Route PRN Reason Start Time Stop Time Status Last Admin Dose Admin Acetaminophen (Tylenol Tab) 650 mg Q6HP PRN PO HEADACHE or DISCOMFORT 07/28/19 15:15 Al Hydrox/Mg Hydrox/Simethicone (Mylanta) 30 ml Q4HP PRN PO HEARTBURN/INDIGESTION 07/28/19 15:15 Amlodipine Besylate (Norvasc) 2.5 mg DAILY PO 07/29/19 09:00 07/30/19 08:37 DC 07/30/19 08:30 Amlodipine Besylate (Norvasc) 5 mg DAILY PO 07/31/19 09:00 08/05/19 09:30 Aripiprazole (AbiLIFY) 5 mg QHS PO 08/05/19 21:00 Clozapine (Clozaril) 25 mg QHS PO 07/31/19 21:00 08/01/19 12:16 DC 07/31/19 21:33 Home Med (Med Rec Complete!) ASDIRECTED XX 07/28/19 12:45 07/28/19 12:44 DC Lorazepam (Ativan) 0.5 mg TID PO 07/29/19 16:00 07/29/19 13:08 DC Lorazepam (Ativan) 1 mg Q6H PO 07/28/19 22:00 07/29/19 13:09 DC 07/29/19 10:33 Lorazepam (Ativan) 1 mg Q6H PO 07/29/19 18:00 07/31/19 08:26 DC 07/31/19 05:51 Lorazepam (Ativan) 1 mg TID PO 07/31/19 16:00 08/05/19 16:13 Magnesium Hydroxide (Milk Of Magnesia) 30 ml DAILYPRN PRN PO CONSTIPATION 07/28/19 15:15 Nicotine (Nicoderm Cq 21mg) 1 patch DAILY TD 07/29/19 09:00 Non-Formulary Medication ( See Comment Field Below ) SEE COMMENTS SECTION 1T@10 XX 08/07/19 10:00 08/05/19 10:37 DC Non-Formulary Medication ( See Comment Field Below ) SEE LABEL COMMENTS DAILY XX 08/05/19 09:00 Olanzapine (ZyPREXA ZYDIS) 10 mg TIDP PRN PO ANXIETY/AGITATION 07/28/19 15:00 07/30/19 15:16 DC 07/28/19 21:39 Paliperidone (Invega) 3 mg BID PO 07/28/19 21:00 07/29/19 12:58 DC 07/29/19 09:12 Trazodone HCl (Desyrel) 50 mg QHSP PRN PO INSOMNIA 07/28/19 21:00 07/28/19 21:39 Allergies Coded Allergies: No Known Allergies (Unverified , 07/28/19) MICHELLE BUENO DO Aug 06, 2019 10:42
[2019-08-07] MEDS: amLODIPine 10 MG TAB PO SCH (09:00)
[2019-08-07] MEDS: **PENDING PPD ENTRY XX SCH (09:00)
[2019-08-07] MEDS: NICOTINE 21MG/24HR 1 EA TRANSDERMAL TD SCH (09:00)
[2019-08-07] MEDS: LORazepam 1 MG TAB PO SCH ×3 (09:00→21:00)
[2019-08-07] MEDS ORDERED: PPD DOCUMENTATION ENTRY MISC XX SCH (10:00)
--- NOTE | 2019-08-07 12:47 | MHIPNPDOC ---
[facility] Progress Note Progress Note Inpatient Progress Note Bang Li MRN: N/A Date of : N/A Date of Service: 08/07/2019 History of Present Illness Patient presented catatonic with a history of schizophrenia and significant mental health transfer from home. Interval History Psychiatric symptoms today: The patient is met with, but is still difficult to converse with. He walks around aimlessly, saying that he "wants to go home," asking the question repeatedly, saying "I'm fine" in a bizarre manner. Affective: Unable to determine. Psychotic: The patient still having very disorganized behavior but has made some improvements in showering, has been eating more, although repeats various words, is generally negativistic. Anxiety: Unable to screen. Misc: Poor sleeping behavior, does require prompting for eating. Group Attendance: No groups gone to today. Behavioral problems/significant events overnight: None reported. Staff Report: The patient has continually walked around in a bizarre manner requiring significant prompting for feeding. Review Of Systems Unable to determine due to patient's mental status. Psychotherapy None on this visit. Vital Signs Reviewed. Mental Status Examination General: Poor hygiene Speech: Nearly mute Thought processes: Appears linear MSK: Psychomotor retardation Thought content: Unknown Abstract reasoning, and computation: Appears impaired Description of associations: Appears impaired Description of abnormal or psychotic thoughts: Unknown Judgment: impaired Insight: impaired Orientation: Appears alert and able to interact Cognition: Slowed Recent and remote memory: Impaired Attention span and concentration: Impaired Fund of knowledge: Unknown Mood: "I want to go home" Affect: Profoundly flat and dysthymic Diagnoses Schizophrenia. Catatonia. Alcohol use disorder, unspecified. Assessment and Plan Schizophrenia: Continue to offer Abilify 10 mg nightly, patient not taking medications. Catatonia: Continue Ativan, patient is able to feed. Alcohol use disorder: Will continue Ativan for catatonia. Continue to screen for any dysregulation consistent with alcohol withdrawal, as unknown amount of alcohol use prior. Disposition The patient will need a further inpatient admission due to his severe impairing psychosis and catatonia, making him unable to care for himself. The patient will be converted to [facility] and referral for [place] is in process. Time Spent 15 minutes. Monday Vital Signs Vital Signs Date Time Temp Pulse Resp B/P (MAP) Pulse Ox O2 Delivery O2 Flow Rate FiO2 1/29/20 12:41 Room Air 08/05/19 09:30 79 109/59 08/05/19 09:13 97 08/05/19 06:26 98.5 16 Current Medications Current Medications Medications (Trade) Dose Ordered Sig/Carri Route PRN Reason Start Time Stop Time Status Last Admin Dose Admin Acetaminophen (Tylenol Tab) 650 mg Q6HP PRN PO HEADACHE or DISCOMFORT 07/28/19 15:15 Al Hydrox/Mg Hydrox/Simethicone (Mylanta) 30 ml Q4HP PRN PO HEARTBURN/INDIGESTION 07/28/19 15:15 Amlodipine Besylate (Norvasc) 2.5 mg DAILY PO 07/29/19 09:00 07/30/19 08:37 DC 07/30/19 08:30 Amlodipine Besylate (Norvasc) 5 mg DAILY PO 07/31/19 09:00 08/06/19 15:46 DC 08/05/19 09:30 Amlodipine Besylate (Norvasc) 10 mg DAILY PO 08/07/19 09:00 Aripiprazole (AbiLIFY) 5 mg QHS PO 08/05/19 21:00 Clozapine (Clozaril) 25 mg QHS PO 07/31/19 21:00 08/01/19 12:16 DC 07/31/19 21:33 Home Med (Med Rec Complete!) ASDIRECTED XX 07/28/19 12:45 07/28/19 12:44 DC Lorazepam (Ativan) 0.5 mg TID PO 07/29/19 16:00 07/29/19 13:08 DC Lorazepam (Ativan) 1 mg Q6H PO 07/28/19 22:00 07/29/19 13:09 DC 07/29/19 10:33 Lorazepam (Ativan) 1 mg Q6H PO 07/29/19 18:00 07/31/19 08:26 DC 07/31/19 05:51 Lorazepam (Ativan) 1 mg TID PO 07/31/19 16:00 08/05/19 16:13 Magnesium Hydroxide (Milk Of Magnesia) 30 ml DAILYPRN PRN PO CONSTIPATION 07/28/19 15:15 Nicotine (Nicoderm Cq 21mg) 1 patch DAILY TD 07/29/19 09:00 Non-Formulary Medication ( See Comment Field Below ) SEE COMMENTS SECTION 1T@10 XX 08/07/19 10:00 08/05/19 10:37 DC Non-Formulary Medication ( See Comment Field Below ) SEE LABEL COMMENTS DAILY XX 08/05/19 09:00 Olanzapine (ZyPREXA ZYDIS) 10 mg TIDP PRN PO ANXIETY/AGITATION 07/28/19 15:00 07/30/19 15:16 DC 07/28/19 21:39 Paliperidone (Invega) 3 mg BID PO 07/28/19 21:00 07/29/19 12:58 DC 07/29/19 09:12 Trazodone HCl (Desyrel) 50 mg QHSP PRN PO INSOMNIA 07/28/19 21:00 07/28/19 21:39 Allergies Coded Allergies: No Known Allergies (Unverified , 07/28/19) MICHELLE BUENO DO Aug 07, 2019 12:47
--- NOTE | 2019-08-08 00:55 | ECGEPIP ---
[facility] Test Date: 2019-08-05 Pat Name: ARAVIND OCHOA Department: Room: [place] [address] Gender: Male Va Underwriter: : 1975 Requested By: MICHELLE BUENO Order Number: [id number] Reading MD: Aníbal Tyler Measurements Intervals [place] Rate: 78 P: 70 WI: 165 QRS: 48 QRSD: 94 T: 48 QT: 348 QTc: 398 Interpretive Statements SINUS RHYTHM WITH FREQUENT VENTRICULAR PREMATURE COMPLEXES ABNORMAL RHYTHM ECG No prior tracing in the system Electronically Signed on 08-08-2019 0:55:22 EST by Aníbal Tyler
[2019-08-08] MEDS: LORazepam 1 MG TAB PO SCH ×3 (10:13→20:30)
[2019-08-08] MEDS: **PENDING PPD ENTRY XX SCH (10:13)
[2019-08-08] MEDS: NICOTINE 21MG/24HR 1 EA TRANSDERMAL TD SCH (10:13)
[2019-08-08] MEDS: amLODIPine 10 MG TAB PO SCH (10:13)
--- NOTE | 2019-08-08 10:43 | MHIPNPDOC ---
[facility] Progress Note Progress Note Inpatient Progress Note Bang Li MRN: N/A Date of : N/A Date of Service: 08/08/2019 History of Present Illness Patient presented catatonic with a history of schizophrenia and significant mental health transfer from home. Interval History Psychiatric symptoms today: The patient is met with, but is still difficult to converse with. He walks around aimlessly, saying that he "wants to go home," asking the question repeatedly, saying "I'm fine" in a bizarre manner. Affective: Unable to determine. Psychotic: The patient still having very disorganized behavior but has made some improvements in showering, has been eating more, although repeats various words, is generally negativistic. Anxiety: Unable to screen. Misc: Poor sleeping behavior, does require prompting for eating. Group Attendance: No groups gone to today. Behavioral problems/significant events overnight: None reported. Staff Report: The patient has continually walked around in a bizarre manner requiring significant prompting for feeding. Review Of Systems Unable to determine due to patient's mental status. Psychotherapy None on this visit. Vital Signs Reviewed. Mental Status Examination General: Poor hygiene Speech: Nearly mute Thought processes: Appears linear MSK: Psychomotor retardation Thought content: Unknown Abstract reasoning, and computation: Appears impaired Description of associations: Appears impaired Description of abnormal or psychotic thoughts: Unknown Judgment: impaired Insight: impaired Orientation: Appears alert and able to interact Cognition: Slowed Recent and remote memory: Impaired Attention span and concentration: Impaired Fund of knowledge: Unknown Mood: "I want to go home" Affect: Profoundly flat and dysthymic Diagnoses Schizophrenia. Catatonia. Alcohol use disorder, unspecified. Assessment and Plan Schizophrenia: Continue to offer Abilify 10 mg nightly, patient not taking medications. Catatonia: Continue Ativan, patient is able to feed. Alcohol use disorder: Will continue Ativan for catatonia. Continue to screen for any dysregulation consistent with alcohol withdrawal, as unknown amount of alcohol use prior. Treatment over objection order placed, we'll pursue at this time. Disposition Patient will need further inpatient admission as he is severely decompensated, stopped taking medications and demonstrates no insight problems. Treatment over objection order placed. We'll perform assessment tomorrow upon serving patient. Time Spent 15 minutes. Vital Signs Vital Signs Date Time Temp Pulse Resp B/P (MAP) Pulse Ox O2 Delivery O2 Flow Rate FiO2 08/07/19 12:41 Room Air 08/05/19 09:30 79 109/59 08/05/19 09:13 97 08/05/19 06:26 98.5 16 Current Medications Current Medications Medications (Trade) Dose Ordered Sig/Carri Route PRN Reason Start Time Stop Time Status Last Admin Dose Admin Acetaminophen (Tylenol Tab) 650 mg Q6HP PRN PO HEADACHE or DISCOMFORT 07/28/19 15:15 Al Hydrox/Mg Hydrox/Simethicone (Mylanta) 30 ml Q4HP PRN PO HEARTBURN/INDIGESTION 07/28/19 15:15 Amlodipine Besylate (Norvasc) 2.5 mg DAILY PO 07/29/19 09:00 07/30/19 08:37 DC 07/30/19 08:30 Amlodipine Besylate (Norvasc) 5 mg DAILY PO 07/31/19 09:00 08/06/19 15:46 DC 08/05/19 09:30 Amlodipine Besylate (Norvasc) 10 mg DAILY PO 08/07/19 09:00 Aripiprazole (AbiLIFY) 5 mg QHS PO 08/05/19 21:00 Clozapine (Clozaril) 25 mg QHS PO 07/31/19 21:00 08/01/19 12:16 DC 07/31/19 21:33 Home Med (Med Rec Complete!) ASDIRECTED XX 07/28/19 12:45 07/28/19 12:44 DC Lorazepam (Ativan) 0.5 mg TID PO 07/29/19 16:00 07/29/19 13:08 DC Lorazepam (Ativan) 1 mg Q6H PO 07/28/19 22:00 07/29/19 13:09 DC 07/29/19 10:33 Lorazepam (Ativan) 1 mg Q6H PO 07/29/19 18:00 07/31/19 08:26 DC 07/31/19 05:51 Lorazepam (Ativan) 1 mg TID PO 07/31/19 16:00 08/05/19 16:13 Magnesium Hydroxide (Milk Of Magnesia) 30 ml DAILYPRN PRN PO CONSTIPATION 07/28/19 15:15 Nicotine (Nicoderm Cq 21mg) 1 patch DAILY TD 07/29/19 09:00 Non-Formulary Medication ( See Comment Field Below ) SEE COMMENTS SECTION 1T@10 XX 08/07/19 10:00 08/05/19 10:37 DC Non-Formulary Medication ( See Comment Field Below ) SEE LABEL COMMENTS DAILY XX 08/05/19 09:00 Olanzapine (ZyPREXA ZYDIS) 10 mg TIDP PRN PO ANXIETY/AGITATION 07/28/19 15:00 07/30/19 15:16 DC 07/28/19 21:39 Paliperidone (Invega) 3 mg BID PO 07/28/19 21:00 07/29/19 12:58 DC 07/29/19 09:12 Trazodone HCl (Desyrel) 50 mg QHSP PRN PO INSOMNIA 07/28/19 21:00 07/28/19 21:39 Allergies Coded Allergies: No Known Allergies (Unverified , 07/28/19) MICHELLE BUENO DO Aug 08, 2019 10:43
[2019-08-09] MEDS: amLODIPine 10 MG TAB PO SCH (09:00)
[2019-08-09] MEDS: LORazepam 1 MG TAB PO SCH ×3 (09:00→20:27)
[2019-08-09] MEDS: **PENDING PPD ENTRY XX SCH (09:00)
[2019-08-09] MEDS: NICOTINE 21MG/24HR 1 EA TRANSDERMAL TD SCH (09:00)
--- NOTE | 2019-08-09 10:09 | MHIPNPDOC ---
[facility] Progress Note Progress Note Inpatient Progress Note Bang Li MRN: N/A Date of : N/A Date of Service: 08/09/2019 History of Present Illness Patient presented catatonic with a history of schizophrenia and significant mental health transfer from home. 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 Affective: Unable to determine. Psychotic: The patient still having very disorganized behavior but has made some improvements in showering, has been eating more, although repeats various words, is generally negativistic. Anxiety: Unable to screen. Misc: Poor sleeping behavior, does require prompting for eating. Group Attendance: No groups gone to today. Behavioral problems/significant events overnight: None reported. Staff Report: The patient has continually walked around in a bizarre manner requiring significant prompting for feeding. Review Of Systems Unable to determine due to patient's mental status. Psychotherapy None on this visit. Vital Signs Reviewed. Mental Status Examination General: Poor hygiene Speech: Significantly slowed, repeats same phrase over and over. Thought processes: Appears linear MSK: Psychomotor retardation Thought content: Unknown Abstract reasoning, and computation: Appears impaired Description of associations: Appears impaired Description of abnormal or psychotic thoughts: Unknown Judgment: impaired Insight: impaired Orientation: Appears alert and able to interact Cognition: Slowed Recent and remote memory: Impaired Attention span and concentration: Impaired Fund of knowledge: Unknown Mood: "I want to go home, I'm perfectly fine." Affect: Profoundly flat and dysthymic Diagnoses Schizophrenia. Catatonia. Alcohol use disorder, unspecified. Assessment and Plan Schizophrenia: Continue to offer Abilify 10 mg nightly, patient not taking medications. Catatonia: Continue Ativan, patient is able to feed. Alcohol use disorder: Will continue Ativan for catatonia. Continue to screen for any dysregulation consistent with alcohol withdrawal, as unknown amount of alcohol use prior. Treatment over objection assessment completed, we'll document today. We'll have second evaluation when [facility] presents for other meetings next Monday. Disposition Patient will need further inpatient admission as he is severely decompensated, stopped taking medications and demonstrates no insight problems. Treatment over objection order placed. Patient will be pursued for treatment at this time as he continues to have no ability to understand the risks and benefits of not taking medications. Time Spent 15 minutes. Monday Vital Signs Vital Signs Date Time Temp Pulse Resp B/P (MAP) Pulse Ox O2 Delivery O2 Flow Rate FiO2 08/07/19 12:41 Room Air 08/05/19 09:30 79 109/59 08/05/19 09:13 97 08/05/19 06:26 98.5 16 Current Medications Current Medications Medications (Trade) Dose Ordered Sig/Carri Route PRN Reason Start Time Stop Time Status Last Admin Dose Admin Acetaminophen (Tylenol Tab) 650 mg Q6HP PRN PO HEADACHE or DISCOMFORT 07/28/19 15:15 Al Hydrox/Mg Hydrox/Simethicone (Mylanta) 30 ml Q4HP PRN PO HEARTBURN/INDIGESTION 07/28/19 15:15 Amlodipine Besylate (Norvasc) 2.5 mg DAILY PO 07/29/19 09:00 07/30/19 08:37 DC 07/30/19 08:30 Amlodipine Besylate (Norvasc) 5 mg DAILY PO 07/31/19 09:00 08/06/19 15:46 DC 08/05/19 09:30 Amlodipine Besylate (Norvasc) 10 mg DAILY PO 08/07/19 09:00 Aripiprazole (AbiLIFY) 5 mg QHS PO 08/05/19 21:00 Clozapine (Clozaril) 25 mg QHS PO 07/31/19 21:00 08/01/19 12:16 DC 07/31/19 21:33 Home Med (Med Rec Complete!) ASDIRECTED XX 07/28/19 12:45 07/28/19 12:44 DC Lorazepam (Ativan) 0.5 mg TID PO 07/29/19 16:00 07/29/19 13:08 DC Lorazepam (Ativan) 1 mg Q6H PO 07/28/19 22:00 07/29/19 13:09 DC 07/29/19 10:33 Lorazepam (Ativan) 1 mg Q6H PO 07/29/19 18:00 07/31/19 08:26 DC 07/31/19 05:51 Lorazepam (Ativan) 1 mg TID PO 07/31/19 16:00 08/05/19 16:13 Magnesium Hydroxide (Milk Of Magnesia) 30 ml DAILYPRN PRN PO CONSTIPATION 07/28/19 15:15 Nicotine (Nicoderm Cq 21mg) 1 patch DAILY TD 07/29/19 09:00 Non-Formulary Medication ( See Comment Field Below ) SEE COMMENTS SECTION 1T@10 XX 08/07/19 10:00 08/05/19 10:37 DC Non-Formulary Medication ( See Comment Field Below ) SEE LABEL COMMENTS DAILY XX 08/05/19 09:00 Olanzapine (ZyPREXA ZYDIS) 10 mg TIDP PRN PO ANXIETY/AGITATION 07/28/19 15:00 07/30/19 15:16 DC 07/28/19 21:39 Paliperidone (Invega) 3 mg BID PO 07/28/19 21:00 07/29/19 12:58 DC 07/29/19 09:12 Trazodone HCl (Desyrel) 50 mg QHSP PRN PO INSOMNIA 07/28/19 21:00 07/28/19 21:39 Allergies Coded Allergies: No Known Allergies (Unverified , 07/28/19) MICHELLE BUENO DO Aug 09, 2019 10:09
--- NOTE | 2019-08-09 16:30 | MHCRPDOC ---
[facility] Consultation Consultation DATE OF SERVICE: 08/09/19 ADMIT DATE: 07/28/2018 TREATMENT OVER OBJECTION ATTENDING DOCTOR: Michelle Lucas DO FAMILY CONTACTS: Brother SECTION I: CLINICAL SUMMARY: HISTORY OF ADMISSION: The patient a 43-year-old man who was transferred from [facility], is brought to our inpatient unit due to bizarre behavior. He was brought in initially to [place] due to significant bizarre actions such as going into a neighbor's house and becoming mute, shaking backwards and forwards, engaging in unusual behavior. He was brought in and assessed where he was brought in for admission. He reportedly has a diagnosis of schizophrenia, however, he is completely catatonic at this time and unable to engage in any meaningful interview other than repeat the words "I want to go home." Thus, the information below was taken from the chart and extracted as appropriate. Labs on admission suggest that he has been starving for nearly a week, reportedly found by brother in a basement. DIAGNOSIS Schizophrenia and Catatonia SECTION II: Proposed Treatment. 1. Course of treatment recommended by treating physician: To prescribe either an antipsychotic or mood stabilizer or both, such as the following: -Abilify 5 mg once a day with the option of increasing this dose progressively up to 30mg per day as tolerated for signs and symptoms of psychosis. Initiate Abilify long acting depo 300-400mg intramuscular every month after sufficient oral medication trial . If the patient refuses treatment by mouth, the patient should receive Haldol intramuscular 5 mg at various doses up to a total of 30 mg per day. - Cogentin 0.5 to 1mg daily up to a total of 4 mg per day in divided doses if Parkinsonian symptoms are evident. -Ativan 0.5mg up to 2mg TID as need, for catatonia symptoms, oral or IM if refused 2. Reasonable alternatives if any are: -Invega 3mg up to 12mg once daily, zyprexa 5mg BID up to 30mg BID IM if refused; If stabilized on Invega giving Invega Sustenna 154 up to 235mg IM every month for long acting injectable 3. Has the patient been tried on the proposed treatment: Abilify on our unit, appears to have tolerated it. 4. Anticipated benefits to proposed treatment: The patient will be able to have basic ability to control her behavior and coordinate his care, as well as attend to basic needs of life of which he is unable to at this time. 5. Reasonable foreseeable adverse side effects: Parkinsonian symptoms, weight gain, sedation, side effects of neuroleptics. In rare cases, neuroleptic malignant syndrome and tardive dyskinesia may develop. However, the treatment team believes that the benefit outweighs any risk. 6. Prognosis without treatment: Grim, he would likely due to his inability to meet basic needs, he remains gravely unable to communicate needs SECTION III: Patient's capacity. 1. Explained to the patient: A. Condition: Y B. Proposed treatment: Y C. Anticipated benefits of treatment: Y D. Risks of adverse side effects of treatment: Y E. Availability of other treatments and comparison of benefits and risks: Y F. Risk of no treatment:Y Patient can only respond with "I don't need any meds" and "I'm perfectly fine" of which he repeats in a monotone voice. 2. State the nature of the patient's objections to treatment: unclear, only states "I'm perfectly fine" 3. The patient's capacity: In my opinion, the patient lacks the capacity to make any important decisions on his treatment at this time. The patient lacks insight into the nature and severity of his illness, his need for treatment and his prognosis. SECTION IV: LIKELIHOOD FOR DANGEROUS BEHAVIOR: 1. The patient is believed to be dangerous to others at the hospital unless treated: No 2. Is the patient believed to be likely dangerous to self if not treated:Yes, unable to care for self, was found starving in a basement, needs huge amount of effort to get him to feed or drink water. SECTION V: ANY OTHER INFORMATION:n/a Vital Signs Vital Signs Date Time Temp Pulse Resp B/P (MAP) Pulse Ox O2 Delivery O2 Flow Rate FiO2 08/07/19 12:41 Room Air 08/05/19 09:30 79 109/59 08/05/19 09:13 97 08/05/19 06:26 98.5 16 Home Medications Current Medications Current Medications Medications (Trade) Dose Ordered Sig/Carri Route PRN Reason Start Time Stop Time Status Last Admin Dose Admin Acetaminophen (Tylenol Tab) 650 mg Q6HP PRN PO HEADACHE or DISCOMFORT 07/28/19 15:15 Al Hydrox/Mg Hydrox/Simethicone (Mylanta) 30 ml Q4HP PRN PO HEARTBURN/INDIGESTION 07/28/19 15:15 Amlodipine Besylate (Norvasc) 2.5 mg DAILY PO 07/29/19 09:00 07/30/19 08:37 DC 07/30/19 08:30 Amlodipine Besylate (Norvasc) 5 mg DAILY PO 07/31/19 09:00 08/06/19 15:46 DC 08/05/19 09:30 Amlodipine Besylate (Norvasc) 10 mg DAILY PO 08/07/19 09:00 Aripiprazole (AbiLIFY) 5 mg QHS PO 08/05/19 21:00 Clozapine (Clozaril) 25 mg QHS PO 07/31/19 21:00 08/01/19 12:16 DC 07/31/19 21:33 Home Med (Med Rec Complete!) ASDIRECTED XX 07/28/19 12:45 07/28/19 12:44 DC Lorazepam (Ativan) 0.5 mg TID PO 07/29/19 16:00 07/29/19 13:08 DC Lorazepam (Ativan) 1 mg Q6H PO 07/28/19 22:00 07/29/19 13:09 DC 07/29/19 10:33 Lorazepam (Ativan) 1 mg Q6H PO 07/29/19 18:00 07/31/19 08:26 DC 07/31/19 05:51 Lorazepam (Ativan) 1 mg TID PO 07/31/19 16:00 08/05/19 16:13 Magnesium Hydroxide (Milk Of Magnesia) 30 ml DAILYPRN PRN PO CONSTIPATION 07/28/19 15:15 Nicotine (Nicoderm Cq 21mg) 1 patch DAILY TD 07/29/19 09:00 Non-Formulary Medication ( See Comment Field Below ) SEE COMMENTS SECTION 1T@10 XX 08/07/19 10:00 08/05/19 10:37 DC Non-Formulary Medication ( See Comment Field Below ) SEE LABEL COMMENTS DAILY XX 08/05/19 09:00 Olanzapine (ZyPREXA ZYDIS) 10 mg TIDP PRN PO ANXIETY/AGITATION 07/28/19 15:00 07/30/19 15:16 DC 07/28/19 21:39 Paliperidone (Invega) 3 mg BID PO 07/28/19 21:00 07/29/19 12:58 DC 07/29/19 09:12 Trazodone HCl (Desyrel) 50 mg QHSP PRN PO INSOMNIA 07/28/19 21:00 07/28/19 21:39 No Active Prescriptions or Reported Meds Allergies Coded Allergies: No Known Allergies (Unverified , 07/28/19) MICHELLE LUCAS DO Aug 09, 2019 16:30
[2019-08-10] MEDS: LORazepam 1 MG TAB PO SCH ×3 (08:43→20:14)
[2019-08-10] MEDS: **PENDING PPD ENTRY XX SCH (08:44)
[2019-08-10] MEDS: amLODIPine 10 MG TAB PO SCH (08:44)
[2019-08-10] MEDS: NICOTINE 21MG/24HR 1 EA TRANSDERMAL TD SCH (08:44)
[2019-08-11] MEDS: LORazepam 1 MG TAB PO SCH ×3 (08:23→21:00)
[2019-08-11] MEDS: NICOTINE 21MG/24HR 1 EA TRANSDERMAL TD SCH (08:24)
[2019-08-11] MEDS: **PENDING PPD ENTRY XX SCH (08:24)
[2019-08-11] MEDS: amLODIPine 10 MG TAB PO SCH (08:24)
[2019-08-12] MEDS: amLODIPine 10 MG TAB PO SCH (09:00)
[2019-08-12] MEDS: LORazepam 1 MG TAB PO SCH ×3 (09:00→21:00)
[2019-08-12] MEDS: NICOTINE 21MG/24HR 1 EA TRANSDERMAL TD SCH (09:00)
[2019-08-12] MEDS: **PENDING PPD ENTRY XX SCH (09:00)
--- NOTE | 2019-08-12 10:39 | MHIPNPDOC ---
[facility] [place] Progress Note Inpatient Progress Note Bang Li MRN: N/A Date of : N/A Date of Service: 08/12/2019 History of Present Illness Patient presented catatonic with a history of schizophrenia and significant mental health transfer from home. Interval History Psychiatric symptoms today: The patient is met with briefly. Continues to state "I'm fine" "and I want to go home" in a bizarre manner. Continuingly walking around in circles with no behavior change. Affective: Unable to determine. Psychotic: The patient still having very disorganized behavior but has made some improvements in showering, has been eating more, although repeats various words, is generally negativistic. Anxiety: Unable to screen. Misc: Poor sleeping behavior, does require prompting for eating. Group Attendance: No groups gone to today. Behavioral problems/significant events overnight: None reported. Staff Report: The patient has continually walked around in a bizarre manner requiring significant prompting for feeding. Review Of Systems Unable to determine due to patient's mental status. Psychotherapy None on this visit. Vital Signs Reviewed. Mental Status Examination General: Poor hygiene Speech: Significantly slowed, repeats same phrase over and over. Thought processes: Appears linear MSK: Psychomotor retardation Thought content: Unknown Abstract reasoning, and computation: Appears impaired Description of associations: Appears impaired Description of abnormal or psychotic thoughts: Unknown Judgment: impaired Insight: impaired Orientation: Appears alert and able to interact Cognition: Slowed Recent and remote memory: Impaired Attention span and concentration: Impaired Fund of knowledge: Unknown Mood: "I want to go home, I'm perfectly fine." Affect: Profoundly flat and dysthymic Diagnoses Schizophrenia. Catatonia. Alcohol use disorder, unspecified. Rash, unspecified. Assessment and Plan Schizophrenia: Continue to offer Abilify 10 mg nightly, patient not taking medications. Catatonia: Continue Ativan, patient is able to feed. Alcohol use disorder: Will continue Ativan for catatonia. Continue to screen for any dysregulation consistent with alcohol withdrawal, as unknown amount of alcohol use prior. Treatment over objection assessment completed, we'll document today. We'll have second evaluation when [facility] presents for other meetings next Monday. Rash: Will have hospitalist examine. Appears to be full body rash. Disposition Patient will need further inpatient admission as he is severely decompensated, stopped taking medications and demonstrates no insight problems. Treatment over objection order placed. Patient will be pursued for treatment at this time as he continues to have no ability to understand the risks and benefits of not taking medications. Time Spent 15 minutes. Monday Vital Signs Vital Signs Date Time Temp Pulse Resp B/P (MAP) Pulse Ox O2 Delivery O2 Flow Rate FiO2 08/07/19 12:41 Room Air Current Medications Current Medications Medications (Trade) Dose Ordered Sig/Carri Route PRN Reason Start Time Stop Time Status Last Admin Dose Admin Acetaminophen (Tylenol Tab) 650 mg Q6HP PRN PO HEADACHE or DISCOMFORT 07/28/19 15:15 Al Hydrox/Mg Hydrox/Simethicone (Mylanta) 30 ml Q4HP PRN PO HEARTBURN/INDIGESTION 07/28/19 15:15 Amlodipine Besylate (Norvasc) 2.5 mg DAILY PO 07/29/19 09:00 07/30/19 08:37 DC 07/30/19 08:30 Amlodipine Besylate (Norvasc) 5 mg DAILY PO 07/31/19 09:00 08/06/19 15:46 DC 08/05/19 09:30 Amlodipine Besylate (Norvasc) 10 mg DAILY PO 08/07/19 09:00 Aripiprazole (AbiLIFY) 5 mg QHS PO 08/05/19 21:00 Clozapine (Clozaril) 25 mg QHS PO 07/31/19 21:00 08/01/19 12:16 DC 07/31/19 21:33 Home Med (Med Rec Complete!) ASDIRECTED XX 07/28/19 12:45 07/28/19 12:44 DC Lorazepam (Ativan) 0.5 mg TID PO 07/29/19 16:00 07/29/19 13:08 DC Lorazepam (Ativan) 1 mg Q6H PO 07/28/19 22:00 07/29/19 13:09 DC 07/29/19 10:33 Lorazepam (Ativan) 1 mg Q6H PO 07/29/19 18:00 07/31/19 08:26 DC 07/31/19 05:51 Lorazepam (Ativan) 1 mg TID PO 07/31/19 16:00 08/05/19 16:13 Magnesium Hydroxide (Milk Of Magnesia) 30 ml DAILYPRN PRN PO CONSTIPATION 07/28/19 15:15 Nicotine (Nicoderm Cq 21mg) 1 patch DAILY TD 07/29/19 09:00 Non-Formulary Medication ( See Comment Field Below ) SEE COMMENTS SECTION 1T@10 XX 08/07/19 10:00 08/05/19 10:37 DC Non-Formulary Medication ( See Comment Field Below ) SEE LABEL COMMENTS DAILY XX 08/05/19 09:00 Olanzapine (ZyPREXA ZYDIS) 10 mg TIDP PRN PO ANXIETY/AGITATION 07/28/19 15:00 07/30/19 15:16 DC 07/28/19 21:39 Paliperidone (Invega) 3 mg BID PO 07/28/19 21:00 07/29/19 12:58 DC 07/29/19 09:12 Trazodone HCl (Desyrel) 50 mg QHSP PRN PO INSOMNIA 07/28/19 21:00 07/28/19 21:39 Allergies Coded Allergies: No Known Allergies (Unverified , 07/28/19) MICHELLE BUENO DO Aug 12, 2019 10:39
[2019-08-12] MEDS: VANICREAM MOISTURIZING SKIN CREAM 113GM TUBE TOP SCH (21:00)
[2019-08-13] MEDS: VANICREAM MOISTURIZING SKIN CREAM 113GM TUBE TOP SCH ×3 (09:00→20:19)
[2019-08-13] MEDS: LORazepam 1 MG TAB PO SCH ×3 (09:00→20:19)
[2019-08-13] MEDS: **PENDING PPD ENTRY XX SCH (09:00)
[2019-08-13] MEDS: NICOTINE 21MG/24HR 1 EA TRANSDERMAL TD SCH (09:00)
[2019-08-13] MEDS: amLODIPine 10 MG TAB PO SCH (09:00)
--- NOTE | 2019-08-13 12:14 | MHIPNPDOC ---
[facility] Progress Note Progress Note Inpatient Progress Note Bang Li MRN: N/A Date of : N/A Date of Service: 08/13/2019 History of Present Illness Patient presented catatonic with a history of schizophrenia and significant mental health transfer from home. Interval History Psychiatric symptoms today: The patient is met with briefly, again continues to state "I am fine" and "I want to go home" in a bizarre, unusual manner and working around in circles with no behavioral change. Affective: Unable to determine. Psychotic: The patient still having very disorganized behavior but has made some improvements in showering, has been eating more, although repeats various words, is generally negativistic. Anxiety: Unable to screen. Misc: Poor sleeping behavior, does require prompting for eating. Group Attendance: No groups gone to today. Behavioral problems/significant events overnight: None reported. Staff Report: The patient has continually walked around in a bizarre manner requiring significant prompting for feeding. Review Of Systems Unable to determine due to patient's mental status. Psychotherapy None on this visit. Vital Signs Reviewed. Mental Status Examination General: Poor hygiene Speech: Significantly slowed, repeats same phrase over and over. Thought processes: Appears linear MSK: Psychomotor retardation Thought content: Unknown Abstract reasoning, and computation: Appears impaired Description of associations: Appears impaired Description of abnormal or psychotic thoughts: Unknown Judgment: impaired Insight: impaired Orientation: Appears alert and able to interact Cognition: Slowed Recent and remote memory: Impaired Attention span and concentration: Impaired Fund of knowledge: Unknown Mood: "I want to go home, I'm perfectly fine." Affect: Profoundly flat and dysthymic Diagnoses Schizophrenia. Catatonia. Alcohol use disorder, unspecified. Rash, unspecified. Assessment and Plan Schizophrenia: Continue to offer Abilify 10 mg nightly, patient not taking medications. Catatonia: Continue Ativan, patient is able to feed. Alcohol use disorder: Will continue Ativan for catatonia. Continue to screen for any dysregulation consistent with alcohol withdrawal, as unknown amount of alcohol use prior. Treatment over objection assessment completed. Patient is slated for evaluation today for second opinion. Rash: The patient will have lab work per hospitalist and medications. Disposition Patient will need further inpatient admission as he is severely decompensated, stopped taking medications and demonstrates no insight problems. Treatment over objection order placed. Patient will be pursued for treatment at this time as he continues to have no ability to understand the risks and benefits of not taking medications. Time Spent 15 minutes. Monday Vital Signs Vital Signs Date Time Temp Pulse Resp B/P (MAP) Pulse Ox O2 Delivery O2 Flow Rate FiO2 08/07/19 12:41 Room Air Current Medications Current Medications Medications (Trade) Dose Ordered Sig/Carri Route PRN Reason Start Time Stop Time Status Last Admin Dose Admin Acetaminophen (Tylenol Tab) 650 mg Q6HP PRN PO HEADACHE or DISCOMFORT 07/28/19 15:15 Al Hydrox/Mg Hydrox/Simethicone (Mylanta) 30 ml Q4HP PRN PO HEARTBURN/INDIGESTION 07/28/19 15:15 Amlodipine Besylate (Norvasc) 2.5 mg DAILY PO 07/29/19 09:00 07/30/19 08:37 DC 07/30/19 08:30 Amlodipine Besylate (Norvasc) 5 mg DAILY PO 07/31/19 09:00 08/06/19 15:46 DC 08/05/19 09:30 Amlodipine Besylate (Norvasc) 10 mg DAILY PO 08/07/19 09:00 Aripiprazole (AbiLIFY) 5 mg QHS PO 08/05/19 21:00 Clozapine (Clozaril) 25 mg QHS PO 07/31/19 21:00 08/01/19 12:16 DC 07/31/19 21:33 Emollient Cream (Vanicream) APPLY TO AFFECTED AREAS TID TOP 08/12/19 21:00 Home Med (Med Rec Complete!) ASDIRECTED XX 07/28/19 12:45 07/28/19 12:44 DC Lorazepam (Ativan) 0.5 mg TID PO 07/29/19 16:00 07/29/19 13:08 DC Lorazepam (Ativan) 1 mg Q6H PO 07/28/19 22:00 07/29/19 13:09 DC 07/29/19 10:33 Lorazepam (Ativan) 1 mg Q6H PO 07/29/19 18:00 07/31/19 08:26 DC 07/31/19 05:51 Lorazepam (Ativan) 1 mg TID PO 07/31/19 16:00 08/05/19 16:13 Magnesium Hydroxide (Milk Of Magnesia) 30 ml DAILYPRN PRN PO CONSTIPATION 07/28/19 15:15 Nicotine (Nicoderm Cq 21mg) 1 patch DAILY TD 07/29/19 09:00 Non-Formulary Medication ( See Comment Field Below ) SEE COMMENTS SECTION 1T@10 XX 08/07/19 10:00 08/05/19 10:37 DC Non-Formulary Medication ( See Comment Field Below ) SEE LABEL COMMENTS DAILY XX 08/05/19 09:00 Olanzapine (ZyPREXA ZYDIS) 10 mg TIDP PRN PO ANXIETY/AGITATION 07/28/19 15:00 07/30/19 15:16 DC 07/28/19 21:39 Paliperidone (Invega) 3 mg BID PO 07/28/19 21:00 07/29/19 12:58 DC 07/29/19 09:12 Trazodone HCl (Desyrel) 50 mg QHSP PRN PO INSOMNIA 07/28/19 21:00 07/28/19 21:39 Allergies Coded Allergies: No Known Allergies (Unverified , 07/28/19) MICHELLE BUENO DO Aug 13, 2019 12:14
[2019-08-13 16:04] VITALS: BP 107/68
[2019-08-14] MEDS: **PENDING PPD ENTRY XX SCH (08:46)
[2019-08-14] MEDS: NICOTINE 21MG/24HR 1 EA TRANSDERMAL TD SCH (08:46)
[2019-08-14] MEDS: VANICREAM MOISTURIZING SKIN CREAM 113GM TUBE TOP SCH ×3 (08:46→20:42)
[2019-08-14] MEDS: LORazepam 1 MG TAB PO SCH ×3 (08:46→20:42)
[2019-08-14] MEDS: amLODIPine 10 MG TAB PO SCH (08:46)
--- NOTE | 2019-08-14 11:48 | MHIPNPDOC ---
[facility] Progress Note Progress Note Inpatient Progress Note Bang Li MRN: N/A Date of : N/A Date of Service: 08/14/2019 History of Present Illness Patient presented catatonic with a history of schizophrenia and significant mental health transfer from home. Interval History Psychiatric symptoms today: The patient is met with briefly, again continues to state "I am fine" and "I want to go home" in a bizarre, unusual manner and working around in circles with no behavioral change. Affective: Unable to determine. Psychotic: The patient still having very disorganized behavior but has made some improvements in showering, has been eating more, although repeats various words, is generally negativistic. Anxiety: Unable to screen. Misc: Poor sleeping behavior, does require prompting for eating. Group Attendance: No groups gone to today. Behavioral problems/significant events overnight: None reported. Staff Report: The patient has continually walked around in a bizarre manner requiring significant prompting for feeding. Review Of Systems Unable to determine due to patient's mental status. Psychotherapy None on this visit. Vital Signs Reviewed. Mental Status Examination General: Poor hygiene Speech: Significantly slowed, repeats same phrase over and over Thought processes: Appears linear at times MSK: Psychomotor retardation Thought content: Unknown Abstract reasoning, and computation: Appears impaired Description of associations: Appears impaired Description of abnormal or psychotic thoughts: Unknown Judgment: impaired Insight: impaired Orientation: Appears alert and able to interact Cognition: Slowed Recent and remote memory: Impaired Attention span and concentration: Impaired Fund of knowledge: Unknown Mood: "I want to go home, I'm perfectly fine." Affect: Profoundly flat and dysthymic Diagnoses Schizophrenia. Catatonia. Alcohol use disorder, unspecified. Rash, unspecified. Assessment and Plan Schizophrenia: Continue to offer Abilify 10 mg nightly, patient not taking medications. Catatonia: Continue Ativan, patient is able to feed. Alcohol use disorder: Will continue Ativan for catatonia. Continue to screen for any dysregulation consistent with alcohol withdrawal, as unknown amount of alcoh ol use prior. Treatment over objection assessment completed. Patient is slated for evaluation today for second opinion. Treatment over objection has been completed for secondary evaluation. Will have court date shortly assigned. Rash: The patient will have lab work per hospitalist and medications. Disposition Patient will need further inpatient admission as he is severely decompensated, stopped taking medications and demonstrates no insight problems. Treatment over objection order placed. Patient will be pursued for treatment at this time as he continues to have no ability to understand the risks and benefits of not taking medications. Time Spent 15 minutes. Monday Vital Signs Vital Signs Date Time Temp Pulse Resp B/P (MAP) Pulse Ox O2 Delivery O2 Flow Rate FiO2 08/13/19 16:04 98.5 73 18 107/68 (81) Current Medications Current Medications Medications (Trade) Dose Ordered Sig/Carri Route PRN Reason Start Time Stop Time Status Last Admin Dose Admin Acetaminophen (Tylenol Tab) 650 mg Q6HP PRN PO HEADACHE or DISCOMFORT 07/28/19 15:15 Al Hydrox/Mg Hydrox/Simethicone (Mylanta) 30 ml Q4HP PRN PO HEARTBURN/INDIGESTION 07/28/19 15:15 Amlodipine Besylate (Norvasc) 2.5 mg DAILY PO 07/29/19 09:00 07/30/19 08:37 DC 07/30/19 08:30 Amlodipine Besylate (Norvasc) 5 mg DAILY PO 07/31/19 09:00 08/06/19 15:46 DC 08/05/19 09:30 Amlodipine Besylate (Norvasc) 10 mg DAILY PO 08/07/19 09:00 Aripiprazole (AbiLIFY) 5 mg QHS PO 08/05/19 21:00 Clozapine (Clozaril) 25 mg QHS PO 07/31/19 21:00 08/01/19 12:16 DC 07/31/19 21:33 Emollient Cream (Vanicream) APPLY TO AFFECTED AREAS TID TOP 08/12/19 21:00 Home Med (Med Rec Complete!) ASDIRECTED XX 07/28/19 12:45 07/28/19 12:44 DC Lorazepam (Ativan) 0.5 mg TID PO 07/29/19 16:00 07/29/19 13:08 DC Lorazepam (Ativan) 1 mg Q6H PO 07/28/19 22:00 07/29/19 13:09 DC 07/29/19 10:33 Lorazepam (Ativan) 1 mg Q6H PO 07/29/19 18:00 07/31/19 08:26 DC 07/31/19 05:51 Lorazepam (Ativan) 1 mg TID PO 07/31/19 16:00 08/05/19 16:13 Magnesium Hydroxide (Milk Of Magnesia) 30 ml DAILYPRN PRN PO CONSTIPATION 07/28/19 15:15 Nicotine (Nicoderm Cq 21mg) 1 patch DAILY TD 07/29/19 09:00 Non-Formulary Medication ( See Comment Field Below ) SEE COMMENTS SECTION 1T@10 XX 08/07/19 10:00 08/05/19 10:37 DC Non-Formulary Medication ( See Comment Field Below ) SEE LABEL COMMENTS DAILY XX 08/05/19 09:00 Olanzapine (ZyPREXA ZYDIS) 10 mg TIDP PRN PO ANXIETY/AGITATION 07/28/19 15:00 07/30/19 15:16 DC 07/28/19 21:39 Paliperidone (Invega) 3 mg BID PO 07/28/19 21:00 07/29/19 12:58 DC 07/29/19 09:12 Trazodone HCl (Desyrel) 50 mg QHSP PRN PO INSOMNIA 07/28/19 21:00 07/28/19 21:39 Allergies Coded Allergies: No Known Allergies (Unverified , 07/28/19) MICHELLE BUENO DO Aug 14, 2019 11:48
--- NOTE | 2019-08-14 16:05 | MHCRPDOC ---
[facility] Consultation Consultation DATE OF Service: 08/14/19 ADMIT DATE: 07/28/2018 TREATMENT OVER OBJECTION ATTENDING DOCTOR: Bautista Lucas DO FAMILY CONTACTS: Brother SECTION I: CLINICAL SUMMARY: HISTORY OF ADMISSION: The patient a 43-year-old man who was transferred from [facility], is brought to our inpatient unit due to bizarre behavior. He was brought in initially to [place] due to significant bizarre actions such as going into a neighbor's house and becoming mute, shaking backwards and forwards, engaging in unusual behavior. He was brought in and assessed where he was brought in for admission. He reportedly has a diagnosis of schizophrenia, however, he is completely catatonic at this time and unable to engage in any meaningful interview other than repeat the words "I want to go home." Thus, the information below was taken from the chart and extracted as appropriate. Labs on admission suggest that he has been starving for nearly a week, reportedly found by brother in a basement. DIAGNOSIS Schizophrenia and Catatonia SECTION II: Proposed Treatment. 1. Course of treatment recommended by treating physician: To prescribe either an antipsychotic or mood stabilizer or both, such as the following: -Abilify 5 mg once a day with the option of increasing this dose progressively up to 30mg per day as tolerated for signs and symptoms of psychosis. Initiate Abilify long acting depo 300-400mg intramuscular every month after sufficient oral medication trial . If the patient refuses treatment by mouth, the patient should receive Haldol intramuscular 5 mg at various doses up to a total of 30 mg per day. - Cogentin 0.5 to 1mg daily up to a total of 4 mg per day in divided doses if Parkinsonian symptoms are evident. -Ativan 0.5mg up to 2mg TID as need, for catatonia symptoms, oral or IM if refused 2. Reasonable alternatives if any are: -Invega 3mg up to 12mg once daily, zyprexa 5mg BID up to 30mg BID IM if refused; If stabilized on Invega giving Invega Sustenna 154 up to 235mg IM every month for long acting injectable 3. Has the patient been tried on the proposed treatment: Abilify on our unit, appears to have tolerated it. 4. Anticipated benefits to proposed treatment: The patient will be able to have basic ability to control her behavior and coordinate his care, as well as attend to basic needs of life of which he is unable to at this time. 5. Reasonable foreseeable adverse side effects: Parkinsonian symptoms, weight gain, sedation, side effects of neuroleptics. In rare cases, neuroleptic malignant syndrome and tardive dyskinesia may develop. However, the treatment team believes that the benefit outweighs any risk. 6. Prognosis without treatment: Grim, he would likely due to his inability to meet basic needs, he remains gravely unable to communicate needs SECTION III: Patient's capacity. 1. Explained to the patient: A. Condition: Y B. Proposed treatment: Y C. Anticipated benefits of treatment: Y D. Risks of adverse side effects of treatment: Y E. Availability of other treatments and comparison of benefits and risks: Y F. Risk of no treatment:Y Patient can only respond with "I don't need any meds" and "I'm perfectly fine" of which he repeats in a monotone voice. 2. State the nature of the patient's objections to treatment: unclear, only states "I'm perfectly fine" 3. The patient's capacity: In my opinion, the patient lacks the capacity to make any important decisions on his treatment at this time. The patient lacks insight into the nature and severity of his illness, his need for treatment and his prognosis. SECTION IV: LIKELIHOOD FOR DANGEROUS BEHAVIOR: 1. The patient is believed to be dangerous to others at the hospital unless treated: No 2. Is the patient believed to be likely dangerous to self if not treated:Yes, unable to care for self, was found starving in a basement, needs huge amount of effort to get him to feed or drink water. SECTION V: ANY OTHER INFORMATION:n/a Patient seen and agree with above. Vital Signs Vital Signs Date Time Temp Pulse Resp B/P (MAP) Pulse Ox O2 Delivery O2 Flow Rate FiO2 08/13/19 16:04 98.5 73 18 107/68 (81) Home Medications Current Medications Current Medications Medications (Trade) Dose Ordered Sig/Carri Route PRN Reason Start Time Stop Time Status Last Admin Dose Admin Acetaminophen (Tylenol Tab) 650 mg Q6HP PRN PO HEADACHE or DISCOMFORT 07/28/19 15:15 Al Hydrox/Mg Hydrox/Simethicone (Mylanta) 30 ml Q4HP PRN PO HEARTBURN/INDIGESTION 07/28/19 15:15 Amlodipine Besylate (Norvasc) 2.5 mg DAILY PO 07/29/19 09:00 07/30/19 08:37 DC 07/30/19 08:30 Amlodipine Besylate (Norvasc) 5 mg DAILY PO 07/31/19 09:00 08/06/19 15:46 DC 08/05/19 09:30 Amlodipine Besylate (Norvasc) 10 mg DAILY PO 08/07/19 09:00 Aripiprazole (AbiLIFY) 5 mg QHS PO 08/05/19 21:00 Clozapine (Clozaril) 25 mg QHS PO 07/31/19 21:00 08/01/19 12:16 DC 07/31/19 21:33 Emollient Cream (Vanicream) APPLY TO AFFECTED AREAS TID TOP 08/12/19 21:00 Home Med (Med Rec Complete!) ASDIRECTED XX 07/28/19 12:45 07/28/19 12:44 DC Lorazepam (Ativan) 0.5 mg TID PO 07/29/19 16:00 07/29/19 13:08 DC Lorazepam (Ativan) 1 mg Q6H PO 07/28/19 22:00 07/29/19 13:09 DC 07/29/19 10:33 Lorazepam (Ativan) 1 mg Q6H PO 07/29/19 18:00 07/31/19 08:26 DC 07/31/19 05:51 Lorazepam (Ativan) 1 mg TID PO 07/31/19 16:00 08/05/19 16:13 Magnesium Hydroxide (Milk Of Magnesia) 30 ml DAILYPRN PRN PO CONSTIPATION 07/28/19 15:15 Nicotine (Nicoderm Cq 21mg) 1 patch DAILY TD 07/29/19 09:00 Non-Formulary Medication ( See Comment Field Below ) SEE COMMENTS SECTION 1T@10 XX 08/07/19 10:00 08/05/19 10:37 DC Non-Formulary Medication ( See Comment Field Below ) SEE LABEL COMMENTS DAILY XX 08/05/19 09:00 Olanzapine (ZyPREXA ZYDIS) 10 mg TIDP PRN PO ANXIETY/AGITATION 07/28/19 15:00 07/30/19 15:16 DC 07/28/19 21:39 Paliperidone (Invega) 3 mg BID PO 07/28/19 21:00 07/29/19 12:58 DC 07/29/19 09:12 Trazodone HCl (Desyrel) 50 mg QHSP PRN PO INSOMNIA 07/28/19 21:00 07/28/19 21:39 No Active Prescriptions or Reported Meds Allergies Coded Allergies: No Known Allergies (Unverified , 07/28/19) MARIO ESPINOZA DO Aug 14, 2019 4:05 pm
[2019-08-15] MEDS: **PENDING PPD ENTRY XX SCH (09:00)
[2019-08-15] MEDS: amLODIPine 10 MG TAB PO SCH (09:00)
[2019-08-15] MEDS: LORazepam 1 MG TAB PO SCH ×3 (09:00→20:16)
[2019-08-15] MEDS: VANICREAM MOISTURIZING SKIN CREAM 113GM TUBE TOP SCH ×3 (09:00→20:16)
[2019-08-15] MEDS: NICOTINE 21MG/24HR 1 EA TRANSDERMAL TD SCH (09:00)
--- NOTE | 2019-08-15 10:47 | MHIPNPDOC ---
[facility] Progress Note Progress Note Inpatient Progress Note Bang Li MRN: N/A Date of : N/A Date of Service: 08/15/2019 History of Present Illness Patient presented catatonic with a history of schizophrenia and significant mental health transfer from home. Interval History Narrative: The patient still continually asks for discharge in a bizarre way, continues to follow this provider around for the rest of the day making odd statements. Affective: Unknown. Psychotic: Still disorganized, tangential and bizarre. Anxiety: Unable to determine. Eating and sleeping behaviors: Still disrupted, needs significant prompting for eating. Group Attendance: None. Medication Side effects: See ROS below. Behavioral problems/significant events overnight: None reported. Staff Report: Patient is still disorganized, walking around, asking to various passerby the same question in repeating loop. Review Of Systems Unable to determine due to patient's mental status. Psychotherapy None on this visit. Vital Signs Reviewed. Mental Status Examination General: Poor hygiene Speech: Significantly slowed, repeats same phrase over and over Thought processes: Appears linear at times MSK: Psychomotor retardation Thought content: Unknown Abstract reasoning, and computation: Appears impaired Description of associations: Appears impaired Description of abnormal or psychotic thoughts: Unknown Judgment: impaired Insight: impaired Orientation: Appears alert and able to interact Cognition: Slowed Recent and remote memory: Impaired Attention span and concentration: Impaired Fund of knowledge: Unknown Mood: "I want to go home, I'm perfectly fine." Affect: Profoundly flat and dysthymic Diagnoses Schizophrenia. Catatonia. Alcohol use disorder, unspecified. Rash, unspecified. Assessment and Plan Schizophrenia: Continue to offer Abilify 10 mg nightly, patient not taking medications. Catatonia: Continue Ativan, patient is able to feed. Alcohol use disorder: Will continue Ativan for catatonia. Continue to screen for any dysregulation consistent with alcohol withdrawal, as unknown amount of alcohol use prior. Treatment over objection assessment completed. Patient is slated for evaluation today for second opinion. Treatment over objection has been completed for secondary evaluation. Will have court date shortly assigned. Rash: The patient will have lab work per hospitalist and medications. Disposition Patient will need further inpatient admission as he is severely decompensated, s topped taking medications and demonstrates no insight problems. Treatment over objection order placed. Patient will be pursued for treatment at this time as he continues to have no ability to understand the risks and benefits of not taking medications. Time Spent 15 minutes. Vital Signs Vital Signs Date Time Temp Pulse Resp B/P (MAP) Pulse Ox O2 Delivery O2 Flow Rate FiO2 08/13/19 16:04 98.5 73 18 107/68 (81) Current Medications Current Medications Medications (Trade) Dose Ordered Sig/Carri Route PRN Reason Start Time Stop Time Status Last Admin Dose Admin Acetaminophen (Tylenol Tab) 650 mg Q6HP PRN PO HEADACHE or DISCOMFORT 07/28/19 15:15 Al Hydrox/Mg Hydrox/Simethicone (Mylanta) 30 ml Q4HP PRN PO HEARTBURN/INDIGESTION 07/28/19 15:15 Amlodipine Besylate (Norvasc) 2.5 mg DAILY PO 07/29/19 09:00 07/30/19 08:37 DC 07/30/19 08:30 Amlodipine Besylate (Norvasc) 5 mg DAILY PO 07/31/19 09:00 08/06/19 15:46 DC 08/05/19 09:30 Amlodipine Besylate (Norvasc) 10 mg DAILY PO 08/07/19 09:00 Aripiprazole (AbiLIFY) 5 mg QHS PO 08/05/19 21:00 Clozapine (Clozaril) 25 mg QHS PO 07/31/19 21:00 08/01/19 12:16 DC 07/31/19 21:33 Emollient Cream (Vanicream) APPLY TO AFFECTED AREAS TID TOP 08/12/19 21:00 Home Med (Med Rec Complete!) ASDIRECTED XX 07/28/19 12:45 07/28/19 12:44 DC Lorazepam (Ativan) 0.5 mg TID PO 07/29/19 16:00 07/29/19 13:08 DC Lorazepam (Ativan) 1 mg Q6H PO 07/28/19 22:00 07/29/19 13:09 DC 07/29/19 10:33 Lorazepam (Ativan) 1 mg Q6H PO 07/29/19 18:00 07/31/19 08:26 DC 07/31/19 05:51 Lorazepam (Ativan) 1 mg TID PO 07/31/19 16:00 08/05/19 16:13 Magnesium Hydroxide (Milk Of Magnesia) 30 ml DAILYPRN PRN PO CONSTIPATION 07/28/19 15:15 Nicotine (Nicoderm Cq 21mg) 1 patch DAILY TD 07/29/19 09:00 Non-Formulary Medication ( See Comment Field Below ) SEE COMMENTS SECTION 1T@10 XX 08/07/19 10:00 08/05/19 10:37 DC Non-Formulary Medication ( See Comment Field Below ) SEE LABEL COMMENTS DAILY XX 08/05/19 09:00 Olanzapine (ZyPREXA ZYDIS) 10 mg TIDP PRN PO ANXIETY/AGITATION 07/28/19 15:00 07/30/19 15:16 DC 07/28/19 21:39 Paliperidone (Invega) 3 mg BID PO 07/28/19 21:00 07/29/19 12:58 DC 07/29/19 09:12 Trazodone HCl (Desyrel) 50 mg QHSP PRN PO INSOMNIA 07/28/19 21:00 07/28/19 21:39 Allergies Coded Allergies: No Known Allergies (Unverified , 07/28/19) MICHELLE BUENO DO Aug 15, 2019 10:47
[2019-08-16] MEDS: amLODIPine 10 MG TAB PO SCH (09:00)
[2019-08-16] MEDS: VANICREAM MOISTURIZING SKIN CREAM 113GM TUBE TOP SCH ×3 (09:00→20:35)
[2019-08-16] MEDS: NICOTINE 21MG/24HR 1 EA TRANSDERMAL TD SCH (09:00)
[2019-08-16] MEDS: **PENDING PPD ENTRY XX SCH (09:00)
[2019-08-16] MEDS: LORazepam 1 MG TAB PO SCH ×3 (09:00→20:35)
--- NOTE | 2019-08-16 11:27 | MHIPNPDOC ---
[facility] Progress Note Progress Note Inpatient Progress Note Bang Li MRN: N/A Date of : N/A Date of Service: 08/16/2019 History of Present Illness Patient presented catatonic with a history of schizophrenia and significant mental health transfer from home. Interval History Narrative: The patient still continually asks for discharge in a bizarre way, continues to follow this provider around for the rest of the day making odd statements. Affective: Unknown. Psychotic: Still disorganized, tangential and bizarre. Anxiety: Unable to determine. Eating and sleeping behaviors: Still disrupted, needs significant prompting for eating. Group Attendance: None. Medication Side effects: See ROS below. Behavioral problems/significant events overnight: None reported. Staff Report: Patient is still disorganized, walking around, asking to various passerby the same question in repeating loop. Review Of Systems Unable to determine due to patient's mental status. Psychotherapy None on this visit. Vital Signs Reviewed. Mental Status Examination General: Poor hygiene Speech: Significantly slowed, repeats same phrase over and over Thought processes: Appears linear at times MSK: Psychomotor retardation Thought content: Unknown Abstract reasoning, and computation: Appears impaired Description of associations: Appears impaired Description of abnormal or psychotic thoughts: Unknown Judgment: impaired Insight: impaired Orientation: Appears alert and able to interact Cognition: Slowed Recent and remote memory: Impaired Attention span and concentration: Impaired Fund of knowledge: Unknown Mood: "I want to go home, I'm perfectly fine." Affect: Profoundly flat and dysthymic Diagnoses Schizophrenia. Catatonia. Alcohol use disorder, unspecified. Rash, unspecified. Assessment and Plan Schizophrenia: Continue to offer Abilify 10 mg nightly, patient not taking medications. Catatonia: Continue Ativan, patient is able to feed. Alcohol use disorder: Will continue Ativan for catatonia. Continue to screen for any dysregulation consistent with alcohol withdrawal, as unknown amount of alcohol use prior. Treatment over objection assessment completed. Patient is slated for evaluation today for second opinion. Treatment over objection has been completed for secondary evaluation. Patient's court date assigned for next Monday. Rash: Patient noncompliance. Disposition Patient will need further inpatient admission due to a severe inability to attend to basic needs.He is still quite impaired and needs a large amount of assistance. Time Spent 15 minutes. Monday Vital Signs Vital Signs Date Time Temp Pulse Resp B/P (MAP) Pulse Ox O2 Delivery O2 Flow Rate FiO2 08/13/19 16:04 98.5 73 18 107/68 (81) Current Medications Current Medications Medications (Trade) Dose Ordered Sig/Carri Route PRN Reason Start Time Stop Time Status Last Admin Dose Admin Acetaminophen (Tylenol Tab) 650 mg Q6HP PRN PO HEADACHE or DISCOMFORT 07/28/19 15:15 Al Hydrox/Mg Hydrox/Simethicone (Mylanta) 30 ml Q4HP PRN PO HEARTBURN/INDIGESTION 07/28/19 15:15 Amlodipine Besylate (Norvasc) 2.5 mg DAILY PO 07/29/19 09:00 07/30/19 08:37 DC 07/30/19 08:30 Amlodipine Besylate (Norvasc) 5 mg DAILY PO 07/31/19 09:00 08/06/19 15:46 DC 08/05/19 09:30 Amlodipine Besylate (Norvasc) 10 mg DAILY PO 08/07/19 09:00 Aripiprazole (AbiLIFY) 5 mg QHS PO 08/05/19 21:00 Clozapine (Clozaril) 25 mg QHS PO 07/31/19 21:00 08/01/19 12:16 DC 07/31/19 21:33 Emollient Cream (Vanicream) APPLY TO AFFECTED AREAS TID TOP 08/12/19 21:00 Home Med (Med Rec Complete!) ASDIRECTED XX 07/28/19 12:45 07/28/19 12:44 DC Lorazepam (Ativan) 0.5 mg TID PO 07/29/19 16:00 07/29/19 13:08 DC Lorazepam (Ativan) 1 mg Q6H PO 07/28/19 22:00 07/29/19 13:09 DC 07/29/19 10:33 Lorazepam (Ativan) 1 mg Q6H PO 07/29/19 18:00 07/31/19 08:26 DC 07/31/19 05:51 Lorazepam (Ativan) 1 mg TID PO 07/31/19 16:00 08/05/19 16:13 Magnesium Hydroxide (Milk Of Magnesia) 30 ml DAILYPRN PRN PO CONSTIPATION 07/28/19 15:15 Nicotine (Nicoderm Cq 21mg) 1 patch DAILY TD 07/29/19 09:00 Non-Formulary Medication ( See Comment Field Below ) SEE COMMENTS SECTION 1T@10 XX 08/07/19 10:00 08/05/19 10:37 DC Non-Formulary Medication ( See Comment Field Below ) SEE LABEL COMMENTS DAILY XX 08/05/19 09:00 Olanzapine (ZyPREXA ZYDIS) 10 mg TIDP PRN PO ANXIETY/AGITATION 07/28/19 15:00 07/30/19 15:16 DC 07/28/19 21:39 Paliperidone (Invega) 3 mg BID PO 07/28/19 21:00 07/29/19 12:58 DC 07/29/19 09:12 Trazodone HCl (Desyrel) 50 mg QHSP PRN PO INSOMNIA 07/28/19 21:00 07/28/19 21:39 Allergies Coded Allergies: No Known Allergies (Unverified , 07/28/19) MICHELLE BUENO DO Aug 16, 2019 11:27
[2019-08-17] MEDS: LORazepam 1 MG TAB PO SCH ×3 (08:35→20:53)
[2019-08-17] MEDS: NICOTINE 21MG/24HR 1 EA TRANSDERMAL TD SCH (08:35)
[2019-08-17] MEDS: VANICREAM MOISTURIZING SKIN CREAM 113GM TUBE TOP SCH ×3 (08:35→20:53)
[2019-08-17] MEDS: **PENDING PPD ENTRY XX SCH (08:35)
[2019-08-17] MEDS: amLODIPine 10 MG TAB PO SCH (08:35)
[2019-08-18] MEDS: VANICREAM MOISTURIZING SKIN CREAM 113GM TUBE TOP SCH ×3 (09:00→20:37)
[2019-08-18] MEDS: amLODIPine 10 MG TAB PO SCH (09:00)
[2019-08-18] MEDS: LORazepam 1 MG TAB PO SCH (09:00)
[2019-08-18] MEDS: **PENDING PPD ENTRY XX SCH (09:00)
[2019-08-18] MEDS: NICOTINE 21MG/24HR 1 EA TRANSDERMAL TD SCH (09:00)
[2019-08-19] MEDS: **PENDING PPD ENTRY XX SCH (09:00)
[2019-08-19] MEDS: VANICREAM MOISTURIZING SKIN CREAM 113GM TUBE TOP SCH ×3 (09:00→20:38)
[2019-08-19] MEDS: NICOTINE 21MG/24HR 1 EA TRANSDERMAL TD SCH (09:00)
[2019-08-19] MEDS: amLODIPine 10 MG TAB PO SCH (09:00)
--- NOTE | 2019-08-19 11:06 | MHIPNPDOC ---
[facility] Progress Note Progress Note Inpatient Progress Note Bang Li MRN: N/A Date of : N/A Date of Service: 08/19/2019 History of Present Illness Patient presented catatonic with a history of schizophrenia and significant mental health transfer from home. Interval History Narrative: The patient continues to be bizarre walking around the unit, continually asking various people for discharge. Affective: Unknown. Psychotic: Still disorganized, tangential and bizarre. Anxiety: Unable to determine. Eating and sleeping behaviors: Still disrupted, needs significant prompting for eating. Group Attendance: None. Medication Side effects: See ROS below. Behavioral problems/significant events overnight: None reported. Staff Report: Patient is still disorganized, walking around, asking to various passerby the same question in repeating loop. Review Of Systems Unable to determine due to patient's mental status. Psychotherapy None on this visit. Vital Signs Reviewed. Mental Status Examination General: Poor hygiene Speech: Significantly slowed, repeats same phrase over and over Thought processes: Appears linear at times MSK: Psychomotor retardation Thought content: Unknown Abstract reasoning, and computation: Appears impaired Description of associations: Appears impaired Description of abnormal or psychotic thoughts: Unknown Judgment: impaired Insight: impaired Orientation: Appears alert and able to interact Cognition: Slowed Recent and remote memory: Impaired Attention span and concentration: Impaired Fund of knowledge: Unknown Mood: "I want to go home, I'm perfectly fine." Affect: Profoundly flat and dysthymic Diagnoses Schizophrenia. Catatonia. Alcohol use disorder, unspecified. Rash, unspecified. Assessment and Plan Schizophrenia: Continue to offer Abilify 10 mg nightly, patient not taking medications. Catatonia: Continue Ativan, patient is able to feed. Alcohol use disorder: Will continue Ativan for catatonia. Continue to screen for any dysregulation consistent with alcohol withdrawal, as unknown amount of alcohol use prior. Treatment over objection assessment completed. Patient is slated for evaluation today for second opinion. Treatment over objection has been completed for secondary evaluation. Patient's court date assigned for next Monday. Rash: Patient noncompliance. Disposition The patient will have court next week Monday for treatment over objection. The patient has refused to take any medications and still quite psychotic, unable to care for himself, and can barely say any other words than "I want to go home." He is not able to engage in any meaningful activities and can attend own ADLs to such a degree that . Time Spent 15 minutes. Monday Vital Signs Vital Signs Date Time Temp Pulse Resp B/P (MAP) Pulse Ox O2 Delivery O2 Flow Rate FiO2 08/18/19 09:30 Room Air 08/13/19 16:04 98.5 73 18 107/68 (81) Current Medications Current Medications Medications (Trade) Dose Ordered Sig/Carri Route PRN Reason Start Time Stop Time Status Last Admin Dose Admin Acetaminophen (Tylenol Tab) 650 mg Q6HP PRN PO HEADACHE or DISCOMFORT 07/28/19 15:15 Al Hydrox/Mg Hydrox/Simethicone (Mylanta) 30 ml Q4HP PRN PO HEARTBURN/INDIGESTION 07/28/19 15:15 Amlodipine Besylate (Norvasc) 2.5 mg DAILY PO 07/29/19 09:00 07/30/19 08:37 DC 07/30/19 08:30 Amlodipine Besylate (Norvasc) 5 mg DAILY PO 07/31/19 09:00 08/06/19 15:46 DC 08/05/19 09:30 Amlodipine Besylate (Norvasc) 10 mg DAILY PO 08/07/19 09:00 Aripiprazole (AbiLIFY) 5 mg QHS PO 08/05/19 21:00 Clozapine (Clozaril) 25 mg QHS PO 07/31/19 21:00 08/01/19 12:16 DC 07/31/19 21:33 Emollient Cream (Vanicream) APPLY TO AFFECTED AREAS TID TOP 08/12/19 21:00 Home Med (Med Rec Complete!) ASDIRECTED XX 07/28/19 12:45 07/28/19 12:44 DC Lorazepam (Ativan) 0.5 mg TID PO 07/29/19 16:00 07/29/19 13:08 DC Lorazepam (Ativan) 1 mg Q6H PO 07/28/19 22:00 07/29/19 13:09 DC 07/29/19 10:33 Lorazepam (Ativan) 1 mg Q6H PO 07/29/19 18:00 07/31/19 08:26 DC 07/31/19 05:51 Lorazepam (Ativan) 1 mg TID PO 07/31/19 16:00 08/18/19 14:51 DC 08/05/19 16:13 Magnesium Hydroxide (Milk Of Magnesia) 30 ml DAILYPRN PRN PO CONSTIPATION 07/28/19 15:15 Miscellaneous (Unresolved Clarification Entry) SEE LABEL COMMENTS DAILY XX 08/18/19 09:00 08/18/19 14:53 DC Nicotine (Nicoderm Cq 21mg) 1 patch DAILY TD 07/29/19 09:00 Non-Formulary Medication ( See Comment Field Below ) SEE COMMENTS SECTION 1T@10 XX 08/07/19 10:00 08/05/19 10:37 DC Non-Formulary Medication ( See Comment Field Below ) SEE LABEL COMMENTS DAILY XX 08/05/19 09:00 Olanzapine (ZyPREXA ZYDIS) 10 mg TIDP PRN PO ANXIETY/AGITATION 07/28/19 15:00 07/30/19 15:16 DC 07/28/19 21:39 Paliperidone (Invega) 3 mg BID PO 07/28/19 21:00 07/29/19 12:58 DC 07/29/19 09:12 Trazodone HCl (Desyrel) 50 mg QHSP PRN PO INSOMNIA 07/28/19 21:00 07/28/19 21:39 Allergies Coded Allergies: No Known Allergies (Unverified , 07/28/19) MICHELLE BUENO DO Aug 19, 2019 11:06
[2019-08-20] MEDS: NICOTINE 21MG/24HR 1 EA TRANSDERMAL TD SCH (09:00)
[2019-08-20] MEDS: **PENDING PPD ENTRY XX SCH (09:00)
[2019-08-20] MEDS: amLODIPine 10 MG TAB PO SCH (09:00)
[2019-08-20] MEDS: VANICREAM MOISTURIZING SKIN CREAM 113GM TUBE TOP SCH ×3 (09:00→20:02)
[2019-08-21] MEDS: VANICREAM MOISTURIZING SKIN CREAM 113GM TUBE TOP SCH ×3 (08:59→20:37)
[2019-08-21] MEDS: amLODIPine 10 MG TAB PO SCH (08:59)
[2019-08-21] MEDS: **PENDING PPD ENTRY XX SCH (08:59)
[2019-08-21] MEDS: NICOTINE 21MG/24HR 1 EA TRANSDERMAL TD SCH (08:59)
--- NOTE | 2019-08-21 11:48 | MHIPNPDOC ---
[facility] Progress Note Progress Note Inpatient Progress Note Bang Li MRN: N/A Date of : N/A Date of Service: 08/21/2019 History of Present Illness Patient presented catatonic with a history of schizophrenia and significant mental health transfer from home. Interval History Narrative: The patient continues to walk around the unit, bizarre, very difficult to talk to, repetitive. Affective: Unknown. Psychotic: Still disorganized, tangential and bizarre. Anxiety: Unable to determine. Eating and sleeping behaviors: Still disrupted, needs significant prompting for eating. Group Attendance: None. Medication Side effects: See ROS below. Behavioral problems/significant events overnight: None reported. Staff Report: Patient is still disorganized, walking around, asking to various passerby the same question in repeating loop. Review Of Systems Unable to determine due to patient's mental status. Psychotherapy None on this visit. Vital Signs Reviewed. Mental Status Examination General: Poor hygiene Speech: Significantly slowed, repeats same phrase over and over Thought processes: Appears linear at times MSK: Psychomotor retardation Thought content: Unknown Abstract reasoning, and computation: Appears impaired Description of associations: Appears impaired Description of abnormal or psychotic thoughts: Unknown Judgment: impaired Insight: impaired Orientation: Appears alert and able to interact Cognition: Slowed Recent and remote memory: Impaired Attention span and concentration: Impaired Fund of knowledge: Unknown Mood: "I want to go home, I'm perfectly fine." Affect: Profoundly flat and dysthymic Diagnoses Schizophrenia. Catatonia. Alcohol use disorder, unspecified. Rash, unspecified. Assessment and Plan Schizophrenia: Continue to offer Abilify 10 mg nightly, patient not taking medications. Catatonia: Continue Ativan, patient is able to feed. Alcohol use disorder: Will continue Ativan for catatonia. Continue to screen for any dysregulation consistent with alcohol withdrawal, as unknown amount of alcohol use prior. Treatment over objection assessment completed. Patient is slated for evaluation today for second opinion. Treatment over objection has been completed for secondary evaluation. Patient's court date assigned for next Monday. Rash: Patient noncompliance. Disposition Patient will be taken to court this coming Monday for further disposition and potential treatment over objection. Time Spent 15 minutes. Monday Vital Signs Vital Signs Date Time Temp Pulse Resp B/P (MAP) Pulse Ox O2 Delivery O2 Flow Rate FiO2 08/18/19 09:30 Room Air Current Medications Current Medications Medications (Trade) Dose Ordered Sig/Carri Route PRN Reason Start Time Stop Time Status Last Admin Dose Admin Acetaminophen (Tylenol Tab) 650 mg Q6HP PRN PO HEADACHE or DISCOMFORT 07/28/19 15:15 Al Hydrox/Mg Hydrox/Simethicone (Mylanta) 30 ml Q4HP PRN PO HEARTBURN/INDIGESTION 07/28/19 15:15 Amlodipine Besylate (Norvasc) 2.5 mg DAILY PO 07/29/19 09:00 07/30/19 08:37 DC 07/30/19 08:30 Amlodipine Besylate (Norvasc) 5 mg DAILY PO 07/31/19 09:00 08/06/19 15:46 DC 08/05/19 09:30 Amlodipine Besylate (Norvasc) 10 mg DAILY PO 08/07/19 09:00 Aripiprazole (AbiLIFY) 5 mg QHS PO 08/05/19 21:00 Clozapine (Clozaril) 25 mg QHS PO 07/31/19 21:00 08/01/19 12:16 DC 07/31/19 21:33 Emollient Cream (Vanicream) APPLY TO AFFECTED AREAS TID TOP 08/12/19 21:00 Home Med (Med Rec Complete!) ASDIRECTED XX 07/28/19 12:45 07/28/19 12:44 DC Lorazepam (Ativan) 0.5 mg TID PO 07/29/19 16:00 07/29/19 13:08 DC Lorazepam (Ativan) 1 mg Q6H PO 07/28/19 22:00 07/29/19 13:09 DC 07/29/19 10:33 Lorazepam (Ativan) 1 mg Q6H PO 07/29/19 18:00 07/31/19 08:26 DC 07/31/19 05:51 Lorazepam (Ativan) 1 mg TID PO 07/31/19 16:00 08/18/19 14:51 DC 08/05/19 16:13 Magnesium Hydroxide (Milk Of Magnesia) 30 ml DAILYPRN PRN PO CONSTIPATION 07/28/19 15:15 Miscellaneous (Unresolved Clarification Entry) SEE LABEL COMMENTS DAILY XX 08/18/19 09:00 08/18/19 14:53 DC Nicotine (Nicoderm Cq 21mg) 1 patch DAILY TD 1/20/20 09:00 Non-Formulary Medication ( See Comment Field Below ) SEE COMMENTS SECTION 1T@10 XX 08/07/19 10:00 08/05/19 10:37 DC Non-Formulary Medication ( See Comment Field Below ) SEE LABEL COMMENTS DAILY XX 08/05/19 09:00 Olanzapine (ZyPREXA ZYDIS) 10 mg TIDP PRN PO ANXIETY/AGITATION 07/28/19 15:00 07/30/19 15:16 DC 07/28/19 21:39 Paliperidone (Invega) 3 mg BID PO 07/28/19 21:00 07/29/19 12:58 DC 07/29/19 09:12 Trazodone HCl (Desyrel) 50 mg QHSP PRN PO INSOMNIA 07/28/19 21:00 07/28/19 21:39 Allergies Coded Allergies: No Known Allergies (Unverified , 07/28/19) MICHELLE BUENO DO Aug 21, 2019 11:48
--- NOTE | 2019-08-22 08:22 | MHIPNPDOC ---
[facility] Progress Note Progress Note Inpatient Progress Note Bang Li MRN: N/A Date of : N/A Date of Service: 08/22/2019 History of Present Illness Patient presented catatonic with a history of schizophrenia and significant mental health transfer from home. Interval History Narrative: The patient continues to walk around the unit, bizarre, very difficult to talk to, repetitive. Affective: Unknown. Psychotic: Still disorganized, tangential and bizarre. Anxiety: Unable to determine. Eating and sleeping behaviors: Still disrupted, needs significant prompting for eating. Group Attendance: None. Medication Side effects: See ROS below. Behavioral problems/significant events overnight: None reported. Staff Report: Patient is still disorganized, walking around, asking to various passerby the same question in repeating loop. Change narrative to the patient met with include team today the patient continues to report that he wants to go home makes bizarre movements throughout the discussion continually repeats the same motions or an over change effective to unknown chainsaw psychotic to be very disorganized tangential with bizarre movements Review Of Systems Denies any pain or discomfort at this time. Psychotherapy None on this visit. Vital Signs Reviewed. Mental Status Examination General: Poor hygiene Speech: Significantly slowed, repeats same phrase over and over Thought processes: Appears linear at times MSK: Psychomotor retardation Thought content: Unknown Abstract reasoning, and computation: Appears impaired Description of associations: Appears impaired Description of abnormal or psychotic thoughts: Unknown Judgment: impaired Insight: impaired Orientation: Appears alert and able to interact Cognition: Slowed Recent and remote memory: Impaired Attention span and concentration: Impaired Fund of knowledge: Unknown Mood: "I want to go home, I'm perfectly fine." Affect: Profoundly flat and dysthymic Diagnoses Schizophrenia. Catatonia. Alcohol use disorder, unspecified. Rash, unspecified. Assessment and Plan Schizophrenia: Continue to offer Abilify 10 mg nightly, patient not taking medications. Catatonia: Continue Ativan, patient is able to feed. Alcohol use disorder: Will continue Ativan for catatonia. Continue to screen for any dysregulation consistent with alcohol withdrawal, as unknown amount of alcohol use prior. Treatment over objection assessment completed. Patient is slated for evaluation today for second opinion. Treatment over objection has been completed for secondary evaluation. Patient's court date assigned for next Monday. Rash: Patient noncompliance. Disposition Treatment of her objection will be tomorrow, hearing at 2:00 PM. Time Spent 15 minutes. Vital Signs Vital Signs Date Time Temp Pulse Resp B/P (MAP) Pulse Ox O2 Delivery O2 Flow Rate FiO2 08/18/19 09:30 Room Air Current Medications Current Medications Medications (Trade) Dose Ordered Sig/Carri Route PRN Reason Start Time Stop Time Status Last Admin Dose Admin Acetaminophen (Tylenol Tab) 650 mg Q6HP PRN PO HEADACHE or DISCOMFORT 07/28/19 15:15 Al Hydrox/Mg Hydrox/Simethicone (Mylanta) 30 ml Q4HP PRN PO HEARTBURN/INDIGESTION 07/28/19 15:15 Amlodipine Besylate (Norvasc) 2.5 mg DAILY PO 07/29/19 09:00 07/30/19 08:37 DC 07/30/19 08:30 Amlodipine Besylate (Norvasc) 5 mg DAILY PO 07/31/19 09:00 08/06/19 15:46 DC 08/05/19 09:30 Amlodipine Besylate (Norvasc) 10 mg DAILY PO 08/07/19 09:00 Aripiprazole (AbiLIFY) 5 mg QHS PO 08/05/19 21:00 Clozapine (Clozaril) 25 mg QHS PO 07/31/19 21:00 08/01/19 12:16 DC 07/31/19 21:33 Emollient Cream (Vanicream) APPLY TO AFFECTED AREAS TID TOP 08/12/19 21:00 Home Med (Med Rec Complete!) ASDIRECTED XX 07/28/19 12:45 07/28/19 12:44 DC Lorazepam (Ativan) 0.5 mg TID PO 07/29/19 16:00 07/29/19 13:08 DC Lorazepam (Ativan) 1 mg Q6H PO 07/28/19 22:00 07/29/19 13:09 DC 07/29/19 10:33 Lorazepam (Ativan) 1 mg Q6H PO 07/29/19 18:00 07/31/19 08:26 DC 07/31/19 05:51 Lorazepam (Ativan) 1 mg TID PO 07/31/19 16:00 08/18/19 14:51 DC 08/05/19 16:13 Magnesium Hydroxide (Milk Of Magnesia) 30 ml DAILYPRN PRN PO CONSTIPATION 07/28/19 15:15 Miscellaneous (Unresolved Clarification Entry) SEE LABEL COMMENTS DAILY XX 08/18/19 09:00 08/18/19 14:53 DC Nicotine (Nicoderm Cq 21mg) 1 patch DAILY TD 07/29/19 09:00 Non-Formulary Medication ( See Comment Field Below ) SEE COMMENTS SECTION 1T@10 XX 08/07/19 10:00 08/05/19 10:37 DC Non-Formulary Medication ( See Comment Field Below ) SEE LABEL COMMENTS DAILY XX 08/05/19 09:00 Olanzapine (ZyPREXA ZYDIS) 10 mg TIDP PRN PO ANXIETY/AGITATION 07/28/19 15:00 07/30/19 15:16 DC 07/28/19 21:39 Paliperidone (Invega) 3 mg BID PO 07/28/19 21:00 07/29/19 12:58 DC 07/29/19 09:12 Trazodone HCl (Desyrel) 50 mg QHSP PRN PO INSOMNIA 07/28/19 21:00 07/28/19 21:39 Allergies Coded Allergies: No Known Allergies (Unverified , 07/28/19) MICHELLE BUENO DO Aug 22, 2019 08:22
[2019-08-22] MEDS: VANICREAM MOISTURIZING SKIN CREAM 113GM TUBE TOP SCH ×3 (08:57→21:00)
[2019-08-22] MEDS: amLODIPine 10 MG TAB PO SCH (08:57)
[2019-08-22] MEDS: NICOTINE 21MG/24HR 1 EA TRANSDERMAL TD SCH (08:57)
[2019-08-22] MEDS: **PENDING PPD ENTRY XX SCH (08:58)
--- NOTE | 2019-08-23 08:25 | MHIPNPDOC ---
[facility] Progress Note Progress Note Inpatient Progress Note Bang Li MRN: N/A Date of : N/A Date of Service: 08/23/2019 History of Present Illness Patient presented catatonic with a history of schizophrenia and significant mental health transfer from home. Interval History Narrative: The patient continues to walk around the unit, bizarre, refuses to go to court to participate in court hearing today. Patient will be retained and treat over objection. Affective: Unknown. Psychotic: Still disorganized, tangential and bizarre. Anxiety: Unable to determine. Eating and sleeping behaviors: Still disrupted, needs significant prompting for eating. Group Attendance: None. Medication Side effects: See ROS below. Behavioral problems/significant events overnight: None reported. Staff Report: Patient is still disorganized, walking around, asking to various passerby the same question in repeating loop. Change narrative to the patient met with include team today the patient continues to report that he wants to go home makes bizarre movements throughout the discussion continually repeats the same motions or an over change effective to unknown chainsaw psychotic to be very disorganized tangential with bizarre movements Review Of Systems Denies any pain or discomfort at this time. Psychotherapy None on this visit. Vital Signs Reviewed. Mental Status Examination General: Poor hygiene Speech: Significantly slowed, repeats same phrase over and over Thought processes: Appears linear at times MSK: Psychomotor retardation Thought content: Unknown Abstract reasoning, and computation: Appears impaired Description of associations: Appears impaired Description of abnormal or psychotic thoughts: Unknown Judgment: impaired Insight: impaired Orientation: Appears alert and able to interact Cognition: Slowed Recent and remote memory: Impaired Attention span and concentration: Impaired Fund of knowledge: Unknown Mood: "I want to go home, I'm perfectly fine." Affect: Profoundly flat and dysthymic Diagnoses Schizophrenia. Catatonia. Alcohol use disorder, unspecified. Rash, unspecified. Assessment and Plan Schizophrenia: Continue to offer Abilify 10 mg nightly, patient not taking medications. Catatonia: Continue Ativan, patient is able to feed. Alcohol use disorder: Will continue Ativan for catatonia. Continue to screen for any dysregulation consistent with alcohol withdrawal, as unknown amount of alcohol use prior. Patient is slated for evaluation for second opinion. Patient is going to be treated over objection. We will wait for legal papers to arrive next Monday. Rash: Patient noncompliance. Disposition The patient will be continued on his involuntary stay and treat over his objection. He will likely need long-term treatment and referral will be made to [place] at this time. Time Spent 15 minutes. Monday Vital Signs Vital Signs Date Time Temp Pulse Resp B/P (MAP) Pulse Ox O2 Delivery O2 Flow Rate FiO2 08/18/19 09:30 Room Air Current Medications Current Medications Medications (Trade) Dose Ordered Sig/Carri Route PRN Reason Start Time Stop Time Status Last Admin Dose Admin Acetaminophen (Tylenol Tab) 650 mg Q6HP PRN PO HEADACHE or DISCOMFORT 07/28/19 15:15 Al Hydrox/Mg Hydrox/Simethicone (Mylanta) 30 ml Q4HP PRN PO HEARTBURN/INDIGESTION 07/28/19 15:15 Amlodipine Besylate (Norvasc) 2.5 mg DAILY PO 07/29/19 09:00 07/30/19 08:37 DC 07/30/19 08:30 Amlodipine Besylate (Norvasc) 5 mg DAILY PO 07/31/19 09:00 08/06/19 15:46 DC 08/05/19 09:30 Amlodipine Besylate (Norvasc) 10 mg DAILY PO 08/07/19 09:00 Aripiprazole (AbiLIFY) 5 mg QHS PO 08/05/19 21:00 Clozapine (Clozaril) 25 mg QHS PO 07/31/19 21:00 08/01/19 12:16 DC 07/31/19 21:33 Emollient Cream (Vanicream) APPLY TO AFFECTED AREAS TID TOP 08/12/19 21:00 Home Med (Med Rec Complete!) ASDIRECTED XX 07/28/19 12:45 07/28/19 12:44 DC Lorazepam (Ativan) 0.5 mg TID PO 07/29/19 16:00 07/29/19 13:08 DC Lorazepam (Ativan) 1 mg Q6H PO 07/28/19 22:00 07/29/19 13:09 DC 07/29/19 10:33 Lorazepam (Ativan) 1 mg Q6H PO 07/29/19 18:00 07/31/19 08:26 DC 07/31/19 05:51 Lorazepam (Ativan) 1 mg TID PO 07/31/19 16:00 08/18/19 14:51 DC 08/05/19 16:13 Magnesium Hydroxide (Milk Of Magnesia) 30 ml DAILYPRN PRN PO CONSTIPATION 07/28/19 15:15 Miscellaneous (Unresolved Clarification Entry) SEE LABEL COMMENTS DAILY XX 08/18/19 09:00 08/18/19 14:53 DC Nicotine (Nicoderm Cq 21mg) 1 patch DAILY TD 07/29/19 09:00 Non-Formulary Medication ( See Comment Field Below ) SEE COMMENTS SECTION 1T@10 XX 08/07/19 10:00 08/05/19 10:37 DC Non-Formulary Medication ( See Comment Field Below ) SEE LABEL COMMENTS DAILY XX 08/05/19 09:00 Olanzapine (ZyPREXA ZYDIS) 10 mg TIDP PRN PO ANXIETY/AGITATION 07/28/19 15:00 07/30/19 15:16 DC 07/28/19 21:39 Paliperidone (Invega) 3 mg BID PO 07/28/19 21:00 07/29/19 12:58 DC 07/29/19 09:12 Trazodone HCl (Desyrel) 50 mg QHSP PRN PO INSOMNIA 07/28/19 21:00 07/28/19 21:39 Allergies Coded Allergies: No Known Allergies (Unverified , 07/28/19) MICHELLE BUENO DO Aug 23, 2019 08:25
[2019-08-23] MEDS: **PENDING PPD ENTRY XX SCH (09:00)
[2019-08-23] MEDS: VANICREAM MOISTURIZING SKIN CREAM 113GM TUBE TOP SCH ×3 (09:00→21:00)
[2019-08-23] MEDS: amLODIPine 10 MG TAB PO SCH (09:00)
[2019-08-23] MEDS: NICOTINE 21MG/24HR 1 EA TRANSDERMAL TD SCH (09:00)
[2019-08-24] MEDS: **PENDING PPD ENTRY XX SCH (08:38)
[2019-08-24] MEDS: amLODIPine 10 MG TAB PO SCH (08:38)
[2019-08-24] MEDS: NICOTINE 21MG/24HR 1 EA TRANSDERMAL TD SCH (08:38)
[2019-08-24] MEDS: VANICREAM MOISTURIZING SKIN CREAM 113GM TUBE TOP SCH ×3 (08:38→20:19)
--- NOTE | 2019-08-24 11:23 | MHIPNPDOC ---
[facility] Progress Note Progress Note Inpatient Progress Note Bang Li MRN: N/A Date of : N/A Date of Service: 08/24/2019 History of Present Illness Patient presented catatonic with a history of schizophrenia and significant mental health transfer from home. Interval History Narrative: The patient continues to bizarre asking for discharge, unable to ascertain court treatment. Affective: Unknown. Psychotic: Still disorganized, tangential and bizarre. Anxiety: Unable to determine. Eating and sleeping behaviors: Still disrupted, needs significant prompting for eating. Group Attendance: None. Medication Side effects: See ROS below. Behavioral problems/significant events overnight: None reported. Staff Report: Patient is still disorganized, walking around, asking to various passerby the same question in repeating loop. Change narrative to the patient met with include team today the patient continues to report that he wants to go home makes bizarre movements throughout the discussion continually repeats the same motions or an over change effective to unknown chainsaw psychotic to be very disorganized tangential with bizarre movements. Review Of Systems Denies any pain or discomfort at this time. Psychotherapy None on this visit. Vital Signs Reviewed. Mental Status Examination General: Poor hygiene Speech: Significantly slowed, repeats same phrase over and over Thought processes: Appears linear at times MSK: Psychomotor retardation Thought content: Unknown Abstract reasoning, and computation: Appears impaired Description of associations: Appears impaired Description of abnormal or psychotic thoughts: Unknown Judgment: impaired Insight: impaired Orientation: Appears alert and able to interact Cognition: Slowed Recent and remote memory: Impaired Attention span and concentration: Impaired Fund of knowledge: Unknown Mood: "I want to go home, I'm perfectly fine." Affect: Profoundly flat and dysthymic Diagnoses Schizophrenia. Catatonia. Alcohol use disorder, unspecified. Rash, unspecified. Assessment and Plan Schizophrenia: Continue Abilify 10 mg nightly. Treatment over objection order will be placed shortly once legal papers are served on Monday. Catatonia: Continue Ativan, patient is able to feed. Alcohol use disorder: Will continue Ativan for catatonia. Continue to screen for any dysregulation consistent with alcohol withdrawal, as unknown amount of alcohol use prior. Rash: Patient noncompliance. Disposition The patient will be continued on his involuntary stay and treat over his objection. He will likely need long-term treatment and referral will be made to [place] at this time. Time Spent 15 minutes. Monday Vital Signs Vital Signs Date Time Temp Pulse Resp B/P (MAP) Pulse Ox O2 Delivery O2 Flow Rate FiO2 08/18/19 09:30 Room Air Current Medications Current Medications Medications (Trade) Dose Ordered Sig/Carri Route PRN Reason Start Time Stop Time Status Last Admin Dose Admin Acetaminophen (Tylenol Tab) 650 mg Q6HP PRN PO HEADACHE or DISCOMFORT 07/28/19 15:15 Al Hydrox/Mg Hydrox/Simethicone (Mylanta) 30 ml Q4HP PRN PO HEARTBURN/INDIGESTION 07/28/19 15:15 Amlodipine Besylate (Norvasc) 2.5 mg DAILY PO 07/29/19 09:00 07/30/19 08:37 DC 07/30/19 08:30 Amlodipine Besylate (Norvasc) 5 mg DAILY PO 07/31/19 09:00 08/06/19 15:46 DC 08/05/19 09:30 Amlodipine Besylate (Norvasc) 10 mg DAILY PO 08/07/19 09:00 Aripiprazole (AbiLIFY) 5 mg QHS PO 08/05/19 21:00 Clozapine (Clozaril) 25 mg QHS PO 07/31/19 21:00 08/01/19 12:16 DC 07/31/19 21:33 Emollient Cream (Vanicream) APPLY TO AFFECTED AREAS TID TOP 08/12/19 21:00 Home Med (Med Rec Complete!) ASDIRECTED XX 07/28/19 12:45 07/28/19 12:44 DC Lorazepam (Ativan) 0.5 mg TID PO 07/29/19 16:00 07/29/19 13:08 DC Lorazepam (Ativan) 1 mg Q6H PO 07/28/19 22:00 07/29/19 13:09 DC 07/29/19 10:33 Lorazepam (Ativan) 1 mg Q6H PO 07/29/19 18:00 07/31/19 08:26 DC 07/31/19 05:51 Lorazepam (Ativan) 1 mg TID PO 07/31/19 16:00 08/18/19 14:51 DC 08/05/19 16:13 Magnesium Hydroxide (Milk Of Magnesia) 30 ml DAILYPRN PRN PO CONSTIPATION 07/28/19 15:15 Miscellaneous (Unresolved Clarification Entry) SEE LABEL COMMENTS DAILY XX 08/18/19 09:00 08/18/19 14:53 DC Nicotine (Nicoderm Cq 21mg) 1 patch DAILY TD 07/29/19 09:00 Non-Formulary Medication ( See Comment Field Below ) SEE COMMENTS SECTION 1T@10 XX 08/07/19 10:00 08/05/19 10:37 DC Non-Formulary Medication ( See Comment Field Below ) SEE LABEL COMMENTS DAILY XX 08/05/19 09:00 Olanzapine (ZyPREXA ZYDIS) 10 mg TIDP PRN PO ANXIETY/AGITATION 07/28/19 15:00 07/30/19 15:16 DC 07/28/19 21:39 Paliperidone (Invega) 3 mg BID PO 07/28/19 21:00 07/29/19 12:58 DC 07/29/19 09:12 Trazodone HCl (Desyrel) 50 mg QHSP PRN PO INSOMNIA 07/28/19 21:00 07/28/19 21:39 Allergies Coded Allergies: No Known Allergies (Unverified , 07/28/19) MICHELLE BUENO DO Aug 24, 2019 11:23
[2019-08-25] MEDS: amLODIPine 10 MG TAB PO SCH (08:19)
[2019-08-25] MEDS: NICOTINE 21MG/24HR 1 EA TRANSDERMAL TD SCH (08:20)
[2019-08-25] MEDS: VANICREAM MOISTURIZING SKIN CREAM 113GM TUBE TOP SCH ×3 (08:20→20:28)
[2019-08-25] MEDS: **PENDING PPD ENTRY XX SCH (08:20)
--- NOTE | 2019-08-26 08:30 | MHIPNPDOC ---
[facility] Progress Note Progress Note Inpatient Progress Note Bang Li MRN: N/A Date of : N/A Date of Service: 08/26/2019 History of Present Illness Patient presented catatonic with a history of schizophrenia and significant mental health transfer from home. Interval History Narrative: The patient continues to be bizarre asking for discharge, no ability to engage about core treatment. Affective: Unknown. Psychotic: Still disorganized, tangential and bizarre. Anxiety: Unable to determine. Eating and sleeping behaviors: Still disrupted, needs significant prompting for eating. Group Attendance: None. Medication Side effects: See ROS below. Behavioral problems/significant events overnight: None reported. Staff Report: Patient is still disorganized, walking around, asking to various passerby the same question in repeating loop. Review Of Systems Denies any pain or discomfort at this time. Psychotherapy None on this visit. Vital Signs Reviewed. Mental Status Examination General: Poor hygiene Speech: Significantly slowed, repeats same phrase over and over Thought processes: Appears linear at times MSK: Psychomotor retardation Thought content: Unknown Abstract reasoning, and computation: Appears impaired Description of associations: Appears impaired Description of abnormal or psychotic thoughts: Unknown Judgment: impaired Insight: impaired Orientation: Appears alert and able to interact Cognition: Slowed Recent and remote memory: Impaired Attention span and concentration: Impaired Fund of knowledge: Unknown Mood: "I want to go home, I'm perfectly fine." Affect: Profoundly flat and dysthymic Diagnoses Schizophrenia. Catatonia. Alcohol use disorder, unspecified. Rash, unspecified. Assessment and Plan Schizophrenia: Continue Abilify 10 mg nightly. Treatment over objection order will be placed shortly once legal papers are served on Monday. Catatonia: Continue Ativan, patient is able to feed. Alcohol use disorder: Will continue Ativan for catatonia. Continue to screen for any dysregulation consistent with alcohol withdrawal, as unknown amount of alcohol use prior. Rash: Patient noncompliance. Disposition The patient will be continued on his involuntary stay and treat over his objection. He will likely need long-term treatment and referral will be made to [place] at this time. Time Spent 15 minutes. Monday Current Medications Current Medications Medications (Trade) Dose Ordered Sig/Carri Route PRN Reason Start Time Stop Time Status Last Admin Dose Admin Acetaminophen (Tylenol Tab) 650 mg Q6HP PRN PO HEADACHE or DISCOMFORT 07/28/19 15:15 Al Hydrox/Mg Hydrox/Simethicone (Mylanta) 30 ml Q4HP PRN PO HEARTBURN/INDIGESTION 07/28/19 15:15 Amlodipine Besylate (Norvasc) 2.5 mg DAILY PO 07/29/19 09:00 07/30/19 08:37 DC 07/30/19 08:30 Amlodipine Besylate (Norvasc) 5 mg DAILY PO 07/31/19 09:00 08/06/19 15:46 DC 08/05/19 09:30 Amlodipine Besylate (Norvasc) 10 mg DAILY PO 08/07/19 09:00 Aripiprazole (AbiLIFY) 5 mg QHS PO 08/05/19 21:00 Clozapine (Clozaril) 25 mg QHS PO 07/31/19 21:00 08/01/19 12:16 DC 07/31/19 21:33 Emollient Cream (Vanicream) APPLY TO AFFECTED AREAS TID TOP 08/12/19 21:00 Home Med (Med Rec Complete!) ASDIRECTED XX 07/28/19 12:45 07/28/19 12:44 DC Lorazepam (Ativan) 0.5 mg TID PO 07/29/19 16:00 07/29/19 13:08 DC Lorazepam (Ativan) 1 mg Q6H PO 07/28/19 22:00 07/29/19 13:09 DC 07/29/19 10:33 Lorazepam (Ativan) 1 mg Q6H PO 07/29/19 18:00 07/31/19 08:26 DC 07/31/19 05:51 Lorazepam (Ativan) 1 mg TID PO 07/31/19 16:00 08/18/19 14:51 DC 08/05/19 16:13 Magnesium Hydroxide (Milk Of Magnesia) 30 ml DAILYPRN PRN PO CONSTIPATION 07/28/19 15:15 Miscellaneous (Unresolved Clarification Entry) SEE LABEL COMMENTS DAILY XX 08/18/19 09:00 08/18/19 14:53 DC Nicotine (Nicoderm Cq 21mg) 1 patch DAILY TD 07/29/19 09:00 Non-Formulary Medication ( See Comment Field Below ) SEE COMMENTS SECTION 1T@10 XX 08/07/19 10:00 08/05/19 10:37 DC Non-Formulary Medication ( See Comment Field Below ) SEE LABEL COMMENTS DAILY XX 08/05/19 09:00 Olanzapine (ZyPREXA ZYDIS) 10 mg TIDP PRN PO ANXIETY/AGITATION 07/28/19 15:00 07/30/19 15:16 DC 07/28/19 21:39 Paliperidone (Invega) 3 mg BID PO 07/28/19 21:00 07/29/19 12:58 DC 07/29/19 09:12 Trazodone HCl (Desyrel) 50 mg QHSP PRN PO INSOMNIA 07/28/19 21:00 07/28/19 21:39 Allergies Coded Allergies: No Known Allergies (Unverified , 07/28/19) MICHELLE BUENO DO Aug 26, 2019 08:30
[2019-08-26] MEDS: NICOTINE 21MG/24HR 1 EA TRANSDERMAL TD SCH (09:00)
[2019-08-26] MEDS: amLODIPine 10 MG TAB PO SCH (09:00)
[2019-08-26] MEDS: **PENDING PPD ENTRY XX SCH (09:00)
[2019-08-26] MEDS: VANICREAM MOISTURIZING SKIN CREAM 113GM TUBE TOP SCH ×3 (09:00→20:53)
[2019-08-27] MEDS: **PENDING PPD ENTRY XX SCH (09:00)
[2019-08-27] MEDS: VANICREAM MOISTURIZING SKIN CREAM 113GM TUBE TOP SCH ×3 (09:00→20:52)
[2019-08-27] MEDS: amLODIPine 10 MG TAB PO SCH (09:00)
[2019-08-27] MEDS: NICOTINE 21MG/24HR 1 EA TRANSDERMAL TD SCH (09:00)
--- NOTE | 2019-08-27 09:42 | MHIPNPDOC ---
[facility] Progress Note Progress Note Inpatient Progress Note Bang Li MRN: N/A Date of : N/A Date of Service: 08/27/2019 History of Present Illness Patient presented catatonic with a history of schizophrenia and significant mental health transfer from home. Interval History Narrative: The patient was given his first dose of Haldol against his will, continues to report he does not need treatment. Affective: Unknown. Psychotic: Still disorganized, tangential and bizarre. Anxiety: Unable to determine. Eating and sleeping behaviors: Still disrupted, needs significant prompting for eating. Group Attendance: None. Medication Side effects: See ROS below. Behavioral problems/significant events overnight: None reported. Staff Report: Patient is still disorganized, walking around, asking to various passerby the same question in repeating loop. Review Of Systems Denies any pain or discomfort at this time. Psychotherapy None on this visit. Vital Signs Reviewed. Mental Status Examination General: Some improvement, shaved at times. Speech: Significantly slowed, repeats same phrase over and over Thought processes: Appears linear at times MSK: Psychomotor retardation Thought content: Unknown Abstract reasoning, and computation: Appears impaired Description of associations: Appears impaired Description of abnormal or psychotic thoughts: Unknown Judgment: impaired Insight: impaired Orientation: Appears alert and able to interact Cognition: Slowed Recent and remote memory: Impaired Attention span and concentration: Impaired Fund of knowledge: Unknown Mood: "I want to go home, I'm perfectly fine." Affect: Profoundly flat and dysthymic Diagnoses Schizophrenia. Catatonia. Alcohol use disorder, unspecified. Rash, unspecified. Assessment and Plan Schizophrenia: Continue Abilify 10 mg daily. We'll give Haldol 10 mg IM if refused. Catatonia: Ativan will be continued. Alcohol use disorder: Unlikely relevant at this time. Rash: Patient showered, appears to be improving. Disposition The patient will be continued on his involuntary stay and treat over his objection. He will likely need long-term treatment and referral will be made to [place] at this time. Time Spent 15 minutes. Monday Current Medications Current Medications Medications (Trade) Dose Ordered Sig/Carri Route PRN Reason Start Time Stop Time Status Last Admin Dose Admin Acetaminophen (Tylenol Tab) 650 mg Q6HP PRN PO HEADACHE or DISCOMFORT 07/28/19 15:15 Al Hydrox/Mg Hydrox/Simethicone (Mylanta) 30 ml Q4HP PRN PO HEARTBURN/INDIGESTION 07/28/19 15:15 Amlodipine Besylate (Norvasc) 2.5 mg DAILY PO 07/29/19 09:00 07/30/19 08:37 DC 07/30/19 08:30 Amlodipine Besylate (Norvasc) 5 mg DAILY PO 07/31/19 09:00 08/06/19 15:46 DC 08/05/19 09:30 Amlodipine Besylate (Norvasc) 10 mg DAILY PO 08/07/19 09:00 Aripiprazole (AbiLIFY) 5 mg QHS PO 08/05/19 21:00 Clozapine (Clozaril) 25 mg QHS PO 07/31/19 21:00 08/01/19 12:16 DC 07/31/19 21:33 Emollient Cream (Vanicream) APPLY TO AFFECTED AREAS TID TOP 08/12/19 21:00 Home Med (Med Rec Complete!) ASDIRECTED XX 07/28/19 12:45 07/28/19 12:44 DC Lorazepam (Ativan) 0.5 mg TID PO 07/29/19 16:00 07/29/19 13:08 DC Lorazepam (Ativan) 1 mg Q6H PO 07/28/19 22:00 07/29/19 13:09 DC 07/29/19 10:33 Lorazepam (Ativan) 1 mg Q6H PO 07/29/19 18:00 07/31/19 08:26 DC 07/31/19 05:51 Lorazepam (Ativan) 1 mg TID PO 07/31/19 16:00 08/18/19 14:51 DC 08/05/19 16:13 Magnesium Hydroxide (Milk Of Magnesia) 30 ml DAILYPRN PRN PO CONSTIPATION 07/28/19 15:15 Miscellaneous (Unresolved Clarification Entry) SEE LABEL COMMENTS DAILY XX 08/18/19 09:00 08/18/19 14:53 DC Nicotine (Nicoderm Cq 21mg) 1 patch DAILY TD 07/29/19 09:00 Non-Formulary Medication ( See Comment Field Below ) SEE COMMENTS SECTION 1T@10 XX 08/07/19 10:00 08/05/19 10:37 DC Non-Formulary Medication ( See Comment Field Below ) SEE LABEL COMMENTS DAILY XX 08/05/19 09:00 Olanzapine (ZyPREXA ZYDIS) 10 mg TIDP PRN PO ANXIETY/AGITATION 07/28/19 15:00 07/30/19 15:16 DC 07/28/19 21:39 Paliperidone (Invega) 3 mg BID PO 07/28/19 21:00 07/29/19 12:58 DC 07/29/19 09:12 Trazodone HCl (Desyrel) 50 mg QHSP PRN PO INSOMNIA 07/28/19 21:00 07/28/19 21:39 Allergies Coded Allergies: No Known Allergies (Unverified , 07/28/19) MICHELLE BUENO DO Aug 27, 2019 09:42
[2019-08-27] MEDS ORDERED: HALOPERIDOL 5 MG/ML VIAL (J1630) IM PRN ×2 (11:00→11:30)
[2019-08-27] MEDS ORDERED: BENZTROPINE 0.5 MG TAB PO PRN (13:00)
[2019-08-27] MEDS ORDERED: PILL CUTTER 1 EACH XX PRN (13:00)
[2019-08-28] MEDS: amLODIPine 10 MG TAB PO SCH (08:38)
[2019-08-28] MEDS: NICOTINE 21MG/24HR 1 EA TRANSDERMAL TD SCH (08:38)
[2019-08-28] MEDS: VANICREAM MOISTURIZING SKIN CREAM 113GM TUBE TOP SCH ×3 (08:39→20:41)
[2019-08-28] MEDS: **PENDING PPD ENTRY XX SCH (08:39)
--- NOTE | 2019-08-28 09:54 | MHIPNPDOC ---
[facility] Progress Note Progress Note Inpatient Progress Note Bang Li MRN: N/A Date of : N/A Date of Service: 08/28/2019 History of Present Illness Patient presented catatonic with a history of schizophrenia and significant mental health transfer from home. Interval History Narrative: The patient was given his dose of Haldol against his will yesterday, took his first dose of Abilify willingly today, does not take any other medications. Affective: Unknown. Psychotic: Still disorganized, tangential and bizarre. Anxiety: Unable to determine. Eating and sleeping behaviors: Still disrupted, needs significant prompting for eating. Group Attendance: None. Medication Side effects: See ROS below. Behavioral problems/significant events overnight: None reported. Staff Report: The patient has showered, is less obsessive with staff. Review Of Systems Denies any pain or discomfort at this time. Psychotherapy None on this visit. Vital Signs Reviewed. Mental Status Examination General: Some improvement, shaved at times. Speech: Significantly slowed, repeats same phrase over and over Thought processes: Appears linear at times MSK: Psychomotor retardation Thought content: Unknown Abstract reasoning, and computation: Appears impaired Description of associations: Appears impaired Description of abnormal or psychotic thoughts: Unknown Judgment: impaired Insight: impaired Orientation: Appears alert and able to interact Cognition: Slowed Recent and remote memory: Impaired Attention span and concentration: Impaired Fund of knowledge: Unknown Mood: "I want to go home, I'm perfectly fine." Affect: Profoundly flat and dysthymic Diagnoses Schizophrenia. Catatonia. Alcohol use disorder, unspecified. Rash, unspecified. Assessment and Plan Schizophrenia: Continue Abilify 10 mg daily. We'll give Haldol 10 mg IM if refused. Catatonia: Ativan will be continued. Alcohol use disorder: Unlikely relevant at this time. Rash: Patient showered, appears to be improving. Disposition The patient will be continued on his involuntary stay and treat over his objection. He will likely need long-term treatment and referral will be made to [place] at this time. Time Spent 15 minutes. Monday Vital Signs Vital Signs Date Time Temp Pulse Resp B/P (MAP) Pulse Ox O2 Delivery O2 Flow Rate FiO2 08/28/19 07:58 Room Air Current Medications Current Medications Medications (Trade) Dose Ordered Sig/Carri Route PRN Reason Start Time Stop Time Status Last Admin Dose Admin Acetaminophen (Tylenol Tab) 650 mg Q6HP PRN PO HEADACHE or DISCOMFORT 07/28/19 15:15 Al Hydrox/Mg Hydrox/Simethicone (Mylanta) 30 ml Q4HP PRN PO HEARTBURN/INDIGESTION 07/28/19 15:15 Amlodipine Besylate (Norvasc) 2.5 mg DAILY PO 07/29/19 09:00 07/30/19 08:37 DC 07/30/19 08:30 Amlodipine Besylate (Norvasc) 5 mg DAILY PO 07/31/19 09:00 08/06/19 15:46 DC 08/05/19 09:30 Amlodipine Besylate (Norvasc) 10 mg DAILY PO 08/07/19 09:00 Aripiprazole (AbiLIFY) 5 mg DAILY PO 08/27/19 09:00 08/28/19 08:51 DC 08/28/19 08:38 Aripiprazole (AbiLIFY) 5 mg QHS PO 08/05/19 21:00 08/27/19 10:50 DC Aripiprazole (AbiLIFY) 10 mg DAILY PO 08/29/19 09:00 Benztropine Mesylate (Cogentin) 0.25 mg Q6HP PRN PO eps 08/27/19 13:00 Clozapine (Clozaril) 25 mg QHS PO 07/31/19 21:00 08/01/19 12:16 DC 07/31/19 21:33 Emollient Cream (Vanicream) APPLY TO AFFECTED AREAS TID TOP 08/12/19 21:00 Haloperidol (Haldol) 10 mg DAILY PRN IM REFUSES ORAL ABILIFY 08/27/19 11:30 08/27/19 11:47 Haloperidol (Haldol) 10 mg QHS PRN IM 08/27/19 11:00 08/27/19 11:17 DC Home Med (Med Rec Complete!) ASDIRECTED XX 07/28/19 12:45 07/28/19 12:44 DC Lorazepam (Ativan) 0.5 mg TID PO 07/29/19 16:00 07/29/19 13:08 DC Lorazepam (Ativan) 1 mg Q6H PO 07/28/19 22:00 07/29/19 13:09 DC 07/29/19 10:33 Lorazepam (Ativan) 1 mg Q6H PO 07/29/19 18:00 07/31/19 08:26 DC 07/31/19 05:51 Lorazepam (Ativan) 1 mg TID PO 07/31/19 16:00 08/18/19 14:51 DC 08/05/19 16:13 Magnesium Hydroxide (Milk Of Magnesia) 30 ml DAILYPRN PRN PO CONSTIPATION 07/28/19 15:15 Miscellaneous (Unresolved Clarification Entry) SEE LABEL COMMENTS DAILY XX 08/18/19 09:00 08/18/19 14:53 DC Nicotine (Nicoderm Cq 21mg) 1 patch DAILY TD 07/29/19 09:00 Non-Formulary Medication ( See Comment Field Below ) SEE COMMENTS SECTION 1T@10 XX 08/07/19 10:00 08/05/19 10:37 DC Non-Formulary Medication ( See Comment Field Below ) SEE LABEL COMMENTS DAILY XX 08/05/19 09:00 Olanzapine (ZyPREXA ZYDIS) 10 mg TIDP PRN PO ANXIETY/AGITATION 07/28/19 15:00 07/30/19 15:16 DC 07/28/19 21:39 Paliperidone (Invega) 3 mg BID PO 07/28/19 21:00 07/29/19 12:58 DC 07/29/19 09:12 Trazodone HCl (Desyrel) 50 mg QHSP PRN PO INSOMNIA 07/28/19 21:00 07/28/19 21:39 Allergies Coded Allergies: No Known Allergies (Unverified , 07/28/19) MICHELLE BUENO DO Aug 28, 2019 09:54
[2019-08-29] MEDS: amLODIPine 10 MG TAB PO SCH (09:00)
[2019-08-29] MEDS: **PENDING PPD ENTRY XX SCH (09:00)
[2019-08-29] MEDS: VANICREAM MOISTURIZING SKIN CREAM 113GM TUBE TOP SCH ×3 (09:00→20:36)
[2019-08-29] MEDS: NICOTINE 21MG/24HR 1 EA TRANSDERMAL TD SCH (09:00)
--- NOTE | 2019-08-29 09:15 | MHIPNPDOC ---
[facility] Progress Note Progress Note Inpatient Progress Note Bang Li MRN: N/A Date of : N/A Date of Service: 08/29/2019 History of Present Illness Patient presented catatonic with a history of schizophrenia and significant mental health transfer from home. Interval History Narrative: The patient was noted to take his medications without refusing. He has showered and made some improvements. The patient still repeating same phrases, unable to engage in any in-depth review of systems. Affective: Unknown. Psychotic: Still disorganized, tangential and bizarre. Anxiety: Unable to determine. Eating and sleeping behaviors: Still needs prompting for eating, unable to fill out menu, still sleeps the majority of the day. Group Attendance: None. Medication Side effects: See ROS below. Behavioral problems/significant events overnight: None reported. Staff Report: The patient still obsessive at times repeating same phrase, unable to engage in any meaningful discussion. Review Of Systems Denies any pain or discomfort at this time. Psychotherapy None on this visit. Vital Signs Reviewed. Mental Status Examination General: Some improvement, shaved at times. Speech: Significantly slowed, repeats same phrase over and over Thought processes: Appears linear at times MSK: Psychomotor retardation Thought content: Unknown Abstract reasoning, and computation: Appears impaired Description of associations: Appears impaired Description of abnormal or psychotic thoughts: Unknown Judgment: impaired Insight: impaired Orientation: Appears alert and able to interact Cognition: Slowed Recent and remote memory: Impaired Attention span and concentration: Impaired Fund of knowledge: Unknown Mood: "I want to go home, I'm perfectly fine." Affect: Profoundly flat and dysthymic Diagnoses Schizophrenia. Catatonia. Alcohol use disorder, unspecified. Rash, unspecified. Assessment and Plan Schizophrenia: Continue Abilify 10 mg daily, making small improvements. Catatonia: The patient has been refusing. Alcohol use disorder: Not relevant at this time. Rash: Patient's rash appears to be improving after shower. Disposition The patient will need a further inpatient admission as he is still quite impaired. He is unable to feed himself without prompting, although he has made a simple gesture of showering. He will still need more observation and treatment as he is very far from his baseline. He currently does not have a home to return to. If he does not improve as his brother has made it quite clear that due to him not taking meds, he will be removed from the home. Time Spent 15 minutes. Vital Signs Vital Signs Date Time Temp Pulse Resp B/P (MAP) Pulse Ox O2 Delivery O2 Flow Rate FiO2 08/29/19 09:03 Room Air Current Medications Current Medications Medications (Trade) Dose Ordered Sig/Carri Route PRN Reason Start Time Stop Time Status Last Admin Dose Admin Acetaminophen (Tylenol Tab) 650 mg Q6HP PRN PO HEADACHE or DISCOMFORT 07/28/19 15:15 Al Hydrox/Mg Hydrox/Simethicone (Mylanta) 30 ml Q4HP PRN PO HEARTBURN/INDIGESTION 07/28/19 15:15 Amlodipine Besylate (Norvasc) 2.5 mg DAILY PO 07/29/19 09:00 07/30/19 08:37 DC 07/30/19 08:30 Amlodipine Besylate (Norvasc) 5 mg DAILY PO 07/31/19 09:00 08/06/19 15:46 DC 08/05/19 09:30 Amlodipine Besylate (Norvasc) 10 mg DAILY PO 08/07/19 09:00 Aripiprazole (AbiLIFY) 5 mg DAILY PO 08/27/19 09:00 08/28/19 08:51 DC 08/28/19 08:38 Aripiprazole (AbiLIFY) 5 mg QHS PO 08/05/19 21:00 08/27/19 10:50 DC Aripiprazole (AbiLIFY) 10 mg DAILY PO 08/29/19 09:00 Benztropine Mesylate (Cogentin) 0.25 mg Q6HP PRN PO eps 08/27/19 13:00 Clozapine (Clozaril) 25 mg QHS PO 07/31/19 21:00 08/01/19 12:16 DC 07/31/19 21:33 Emollient Cream (Vanicream) APPLY TO AFFECTED AREAS TID TOP 08/12/19 21:00 Haloperidol (Haldol) 10 mg DAILY PRN IM REFUSES ORAL ABILIFY 08/27/19 11:30 08/27/19 11:47 Haloperidol (Haldol) 10 mg QHS PRN IM 08/27/19 11:00 08/27/19 11:17 DC Home Med (Med Rec Complete!) ASDIRECTED XX 07/28/19 12:45 07/28/19 12:44 DC Lorazepam (Ativan) 0.5 mg TID PO 07/29/19 16:00 07/29/19 13:08 DC Lorazepam (Ativan) 1 mg Q6H PO 07/28/19 22:00 07/29/19 13:09 DC 07/29/19 10:33 Lorazepam (Ativan) 1 mg Q6H PO 07/29/19 18:00 07/31/19 08:26 DC 07/31/19 05:51 Lorazepam (Ativan) 1 mg TID PO 07/31/19 16:00 08/18/19 14:51 DC 08/05/19 16:13 Magnesium Hydroxide (Milk Of Magnesia) 30 ml DAILYPRN PRN PO CONSTIPATION 07/28/19 15:15 Miscellaneous (Unresolved Clarification Entry) SEE LABEL COMMENTS DAILY XX 08/18/19 09:00 08/18/19 14:53 DC Nicotine (Nicoderm Cq 21mg) 1 patch DAILY TD 07/29/19 09:00 Non-Formulary Medication ( See Comment Field Below ) SEE COMMENTS SECTION 1T@10 XX 08/07/19 10:00 08/05/19 10:37 DC Non-Formulary Medication ( See Comment Field Below ) SEE LABEL COMMENTS DAILY XX 08/05/19 09:00 Olanzapine (ZyPREXA ZYDIS) 10 mg TIDP PRN PO ANXIETY/AGITATION 07/28/19 15:00 07/30/19 15:16 DC 07/28/19 21:39 Paliperidone (Invega) 3 mg BID PO 07/28/19 21:00 07/29/19 12:58 DC 07/29/19 09:12 Trazodone HCl (Desyrel) 50 mg QHSP PRN PO INSOMNIA 07/28/19 21:00 07/28/19 21:39 Allergies Coded Allergies: No Known Allergies (Unverified , 07/28/19) MICHELLE BUENO DO Aug 29, 2019 09:15
[2019-08-29] MEDS: ARIPiprazole 10 MG TAB PO SCH (09:20)
[2019-08-29 16:00] VITALS: BP 123/78
[2019-08-29 17:26] VITALS: BP 123/78
[2019-08-30] MEDS: NICOTINE 21MG/24HR 1 EA TRANSDERMAL TD SCH (09:00)
[2019-08-30] MEDS: VANICREAM MOISTURIZING SKIN CREAM 113GM TUBE TOP SCH ×3 (09:00→21:00)
[2019-08-30] MEDS: amLODIPine 10 MG TAB PO SCH (09:00)
[2019-08-30] MEDS: **PENDING PPD ENTRY XX SCH (09:00)
[2019-08-30] MEDS: ARIPiprazole 10 MG TAB PO SCH (09:37)
--- NOTE | 2019-08-30 10:35 | MHIPNPDOC ---
[facility] Progress Note Progress Note Inpatient Progress Note Bang Li MRN: N/A Date of : N/A Date of Service: 08/30/2019 History of Present Illness Patient presented catatonic with a history of schizophrenia and significant mental health transfer from home. Interval History Narrative: The patient is met with. He was lying in bed. Some better hygiene, continues to repeat various same phrases. Affective: Unknown. Psychotic: Patient still quite disorganized, tangential but less bizarre. Anxiety: Unable to determine. Eating and sleeping behaviors: Still needs prompting for eating, unable to fill out menu, still sleeps the majority of the day. Group Attendance: None. Medication Side effects: See ROS below. Behavioral problems/significant events overnight: None reported. Staff Report: The patient still obsessive at times repeating same phrase, unable to engage in any meaningful discussion. Review Of Systems Denies any pain or discomfort at this time. Psychotherapy None on this visit. Vital Signs Reviewed. Mental Status Examination General: Some improvement, shaved at times. Speech: Significantly slowed, repeats same phrase over and over Thought processes: Appears linear at times MSK: Psychomotor retardation Thought content: Unknown Abstract reasoning, and computation: Appears impaired Description of associations: Appears impaired Description of abnormal or psychotic thoughts: Unknown Judgment: impaired Insight: impaired Orientation: Appears alert and able to interact Cognition: Slowed Recent and remote memory: Impaired Attention span and concentration: Impaired Fund of knowledge: Unknown Mood: "I want to go home, I'm perfectly fine." Affect: Profoundly flat and dysthymic Diagnoses Schizophrenia. Catatonia. Alcohol use disorder, unspecified. Rash, unspecified. Assessment and Plan Schizophrenia: Increase Abilify to 15 mg daily, making small improvement. Catatonia: The patient has been refusing. Alcohol use disorder: Not relevant at this time. Rash: Patient's rash appears to be improving after shower. Disposition The patient will need a further inpatient admission as he is still quite impaired. He is unable to feed himself without prompting, although he has made a simple gesture of showering. He will still need more observation and treatment as he is very far from his baseline. He currently does not have a home to return to. If he does not improve as his brother has made it quite clear that due to him not taking meds, he will be removed from the home. Time Spent 15 minutes. Monday Vital Signs Vital Signs Date Time Temp Pulse Resp B/P (MAP) Pulse Ox O2 Delivery O2 Flow Rate FiO2 08/29/19 17:26 98.8 68 16 123/78 (93) 08/29/19 09:03 Room Air Current Medications Current Medications Medications (Trade) Dose Ordered Sig/Carri Route PRN Reason Start Time Stop Time Status Last Admin Dose Admin Acetaminophen (Tylenol Tab) 650 mg Q6HP PRN PO HEADACHE or DISCOMFORT 07/28/19 15:15 Al Hydrox/Mg Hydrox/Simethicone (Mylanta) 30 ml Q4HP PRN PO HEARTBURN/INDIGESTION 07/28/19 15:15 Amlodipine Besylate (Norvasc) 2.5 mg DAILY PO 07/29/19 09:00 07/30/19 08:37 DC 07/30/19 08:30 Amlodipine Besylate (Norvasc) 5 mg DAILY PO 07/31/19 09:00 08/06/19 15:46 DC 08/05/19 09:30 Amlodipine Besylate (Norvasc) 10 mg DAILY PO 08/07/19 09:00 Aripiprazole (AbiLIFY) 5 mg DAILY PO 08/27/19 09:00 08/28/19 08:51 DC 08/28/19 08:38 Aripiprazole (AbiLIFY) 5 mg QHS PO 08/05/19 21:00 08/27/19 10:50 DC Aripiprazole (AbiLIFY) 10 mg DAILY PO 08/29/19 09:00 08/30/19 09:37 Benztropine Mesylate (Cogentin) 0.25 mg Q6HP PRN PO eps 08/27/19 13:00 Clozapine (Clozaril) 25 mg QHS PO 07/31/19 21:00 08/01/19 12:16 DC 07/31/19 21:33 Emollient Cream (Vanicream) APPLY TO AFFECTED AREAS TID TOP 08/12/19 21:00 Haloperidol (Haldol) 10 mg DAILY PRN IM REFUSES ORAL ABILIFY 08/27/19 11:30 08/27/19 11:47 Haloperidol (Haldol) 10 mg QHS PRN IM 08/27/19 11:00 08/27/19 11:17 DC Home Med (Med Rec Complete!) ASDIRECTED XX 1/19/20 12:45 07/28/19 12:44 DC Lorazepam (Ativan) 0.5 mg TID PO 07/29/19 16:00 07/29/19 13:08 DC Lorazepam (Ativan) 1 mg Q6H PO 07/28/19 22:00 07/29/19 13:09 DC 07/29/19 10:33 Lorazepam (Ativan) 1 mg Q6H PO 07/29/19 18:00 07/31/19 08:26 DC 07/31/19 05:51 Lorazepam (Ativan) 1 mg TID PO 07/31/19 16:00 08/18/19 14:51 DC 08/05/19 16:13 Magnesium Hydroxide (Milk Of Magnesia) 30 ml DAILYPRN PRN PO CONSTIPATION 07/28/19 15:15 Miscellaneous (Unresolved Clarification Entry) SEE LABEL COMMENTS DAILY XX 08/18/19 09:00 08/18/19 14:53 DC Nicotine (Nicoderm Cq 21mg) 1 patch DAILY TD 07/29/19 09:00 Non-Formulary Medication ( See Comment Field Below ) SEE COMMENTS SECTION 1T@10 XX 08/07/19 10:00 08/05/19 10:37 DC Non-Formulary Medication ( See Comment Field Below ) SEE LABEL COMMENTS DAILY XX 08/05/19 09:00 Olanzapine (ZyPREXA ZYDIS) 10 mg TIDP PRN PO ANXIETY/AGITATION 07/28/19 15:00 07/30/19 15:16 DC 07/28/19 21:39 Paliperidone (Invega) 3 mg BID PO 07/28/19 21:00 07/29/19 12:58 DC 07/29/19 09:12 Trazodone HCl (Desyrel) 50 mg QHSP PRN PO INSOMNIA 07/28/19 21:00 07/28/19 21:39 Allergies Coded Allergies: No Known Allergies (Unverified , 07/28/19) MICHELLE BUENO DO Aug 30, 2019 10:34
[2019-08-31] MEDS: **PENDING PPD ENTRY XX SCH (09:00)
[2019-08-31] MEDS: VANICREAM MOISTURIZING SKIN CREAM 113GM TUBE TOP SCH ×3 (09:00→21:00)
[2019-08-31] MEDS: amLODIPine 10 MG TAB PO SCH (09:00)
[2019-08-31] MEDS: NICOTINE 21MG/24HR 1 EA TRANSDERMAL TD SCH (09:00)
[2019-09-01] MEDS: VANICREAM MOISTURIZING SKIN CREAM 113GM TUBE TOP SCH ×3 (09:00→20:11)
[2019-09-01] MEDS: **PENDING PPD ENTRY XX SCH (09:00)
[2019-09-01] MEDS: amLODIPine 10 MG TAB PO SCH (09:00)
[2019-09-01] MEDS: NICOTINE 21MG/24HR 1 EA TRANSDERMAL TD SCH (09:00)
[2019-09-01 16:00] VITALS: BP 122/66
--- NOTE | 2019-09-02 08:42 | MHIPNPDOC ---
[facility] Progress Note Progress Note Bang Li Inpatient Progress Note Bang Li Select Gender MRN: N/A Date of : MM/DD/YYYY Date of Service: 09/02/2019 History of Present Illness Patient presented catatonic with a history of schizophrenia and significant mental health transfer from home. Interval History Narrative: The patient is met with in the group setting. He has been getting some better hygiene, although has been uncooperative with any ADLs per nursing. Affective: The patient continuously denies any symptoms grossly. Psychotic: Patient is still disorganized and tangential at times but is notably less bizarre. Anxiety: Unable to determine. Eating and sleeping behaviors: The patient still needs prompting for eating as he is unable to fill out his menu and spends the majority of the day sleeping. Group Attendance: None. Medication Side effects: See ROS below. Behavioral problems/significant events overnight: None reported. Staff Report: The patient is still malodorous and unable to engage in ADLs without multiple staff members directing him to do so and engaging with him. Review Of Systems Denies all side effects grossly, does not engage in interview. Psychotherapy None on this visit. Vital Signs Reviewed. Mental Status Examination General: Appears to have shaved somewhat, hygiene mildly better. Speech: Significantly slowed, repeats same phrase over and over Thought processes: Appears linear at times MSK: Psychomotor retardation Thought content: Unknown Abstract reasoning, and computation: Appears impaired Description of associations: Appears impaired Description of abnormal or psychotic thoughts: Unknown Judgment: impaired Insight: impaired Orientation: Appears alert and able to interact Cognition: Slowed Recent and remote memory: Impaired Attention span and concentration: Impaired Fund of knowledge: Unknown Mood: "I want to go home, I'm perfectly fine." Affect: Profoundly flat and dysthymic. Diagnoses Schizophrenia. Catatonia. Alcohol use disorder, unspecified. Rash, unspecified. Assessment and Plan Schizophrenia: Increase Abilify to 20 mg daily, making some small improvement. Catatonia: The patient has been refusing. Alcohol use disorder: Not relevant at this time. Rash: Patient's rash appears to be improving after shower. Disposition The patient will need a further inpatient admission as he is still quite impaired. He is unable to feed himself without prompting, although he has made a simple gesture of showering. He will still need more observation and treatment as he is very far from his baseline. He currently does not have a home to return to. If he does not improve as his brother has made it quite clear that due to him not taking meds, he will be removed from the home. Transfer hearing this Monday. Time Spent 15 minutes. Vital Signs Vital Signs Date Time Temp Pulse Resp B/P (MAP) Pulse Ox O2 Delivery O2 Flow Rate FiO2 09/01/19 16:00 98.9 52 16 122/66 (84) 08/29/19 09:03 Room Air Current Medications Current Medications Medications (Trade) Dose Ordered Sig/Carri Route PRN Reason Start Time Stop Time Status Last Admin Dose Admin Acetaminophen (Tylenol Tab) 650 mg Q6HP PRN PO HEADACHE or DISCOMFORT 07/28/19 15:15 Al Hydrox/Mg Hydrox/Simethicone (Mylanta) 30 ml Q4HP PRN PO HEARTBURN/INDIGESTION 07/28/19 15:15 Amlodipine Besylate (Norvasc) 2.5 mg DAILY PO 07/29/19 09:00 07/30/19 08:37 DC 07/30/19 08:30 Amlodipine Besylate (Norvasc) 5 mg DAILY PO 07/31/19 09:00 08/06/19 15:46 DC 08/05/19 09:30 Amlodipine Besylate (Norvasc) 10 mg DAILY PO 08/07/19 09:00 Aripiprazole (AbiLIFY) 5 mg DAILY PO 08/27/19 09:00 08/28/19 08:51 DC 08/28/19 08:38 Aripiprazole (AbiLIFY) 5 mg QHS PO 08/05/19 21:00 08/27/19 10:50 DC Aripiprazole (AbiLIFY) 10 mg DAILY PO 08/29/19 09:00 08/30/19 13:38 DC 08/30/19 09:37 Aripiprazole (AbiLIFY) 15 mg DAILY PO 08/31/19 09:00 09/01/19 09:31 Benztropine Mesylate (Cogentin) 0.25 mg Q6HP PRN PO eps 08/27/19 13:00 Clozapine (Clozaril) 25 mg QHS PO 07/31/19 21:00 08/01/19 12:16 DC 07/31/19 21:33 Emollient Cream (Vanicream) APPLY TO AFFECTED AREAS TID TOP 08/12/19 21:00 Haloperidol (Haldol) 10 mg DAILY PRN IM REFUSES ORAL ABILIFY 08/27/19 11:30 08/27/19 11:47 Haloperidol (Haldol) 10 mg QHS PRN IM 08/27/19 11:00 08/27/19 11:17 DC Home Med (Med Rec Complete!) ASDIRECTED XX 07/28/19 12:45 07/28/19 12:44 DC Lorazepam (Ativan) 0.5 mg TID PO 07/29/19 16:00 07/29/19 13:08 DC Lorazepam (Ativan) 1 mg Q6H PO 07/28/19 22:00 07/29/19 13:09 DC 07/29/19 10:33 Lorazepam (Ativan) 1 mg Q6H PO 07/29/19 18:00 07/31/19 08:26 DC 07/31/19 05:51 Lorazepam (Ativan) 1 mg TID PO 07/31/19 16:00 08/18/19 14:51 DC 08/05/19 16:13 Magnesium Hydroxide (Milk Of Magnesia) 30 ml DAILYPRN PRN PO CONSTIPATION 07/28/19 15:15 Miscellaneous (Unresolved Clarification Entry) SEE LABEL COMMENTS DAILY XX 08/18/19 09:00 08/18/19 14:53 DC Nicotine (Nicoderm Cq 21mg) 1 patch DAILY TD 07/29/19 09:00 Non-Formulary Medication ( See Comment Field Below ) SEE COMMENTS SECTION 1T@10 XX 08/07/19 10:00 08/05/19 10:37 DC Non-Formulary Medication ( See Comment Field Below ) SEE LABEL COMMENTS DAILY XX 08/05/19 09:00 Olanzapine (ZyPREXA ZYDIS) 10 mg TIDP PRN PO ANXIETY/AGITATION 07/28/19 15:00 07/30/19 15:16 DC 07/28/19 21:39 Paliperidone (Invega) 3 mg BID PO 07/28/19 21:00 07/29/19 12:58 DC 07/29/19 09:12 Trazodone HCl (Desyrel) 50 mg QHSP PRN PO INSOMNIA 07/28/19 21:00 07/28/19 21:39 Allergies Coded Allergies: No Known Allergies (Unverified , 07/28/19) MICHELLE BUENO DO Sep 02, 2019 08:42
[2019-09-02] MEDS: amLODIPine 10 MG TAB PO SCH (09:00)
[2019-09-02] MEDS: **PENDING PPD ENTRY XX SCH (09:00)
[2019-09-02] MEDS: NICOTINE 21MG/24HR 1 EA TRANSDERMAL TD SCH (09:00)
[2019-09-02] MEDS: VANICREAM MOISTURIZING SKIN CREAM 113GM TUBE TOP SCH ×3 (09:00→20:14)
[2019-09-02] MEDS: ARIPiprazole 10 MG TAB PO SCH (09:23)
[2019-09-03] MEDS: ARIPiprazole 10 MG TAB PO SCH (08:38)
[2019-09-03] MEDS: NICOTINE 21MG/24HR 1 EA TRANSDERMAL TD SCH (08:39)
[2019-09-03] MEDS: amLODIPine 10 MG TAB PO SCH (08:39)
[2019-09-03] MEDS: VANICREAM MOISTURIZING SKIN CREAM 113GM TUBE TOP SCH ×3 (08:39→20:24)
[2019-09-03] MEDS: **PENDING PPD ENTRY XX SCH (08:40)
[2019-09-03 16:00] VITALS: BP 116/74
[2019-09-04] MEDS: NICOTINE 21MG/24HR 1 EA TRANSDERMAL TD SCH (09:00)
[2019-09-04] MEDS: **PENDING PPD ENTRY XX SCH (09:00)
--- NOTE | 2019-09-04 09:17 | MHIPNPDOC ---
[facility] Progress Note Progress Note Bang Li Inpatient Progress Note Bang Li Select Gender MRN: N/A Date of : MM/DD/YYYY Date of Service: 09/04/2019 History of Present Illness Patient presented catatonic with a history of schizophrenia and significant mental health transfer from home. Interval History Narrative: The patient is met within the group setting. He is brighter and has better hygiene, more interactive than previous, able to engage in more thorough interview. Affective: The patient grossly denies. Psychotic: The patient is much less disorganized, more able to attend the needs, more pleasant. Anxiety: Denies any. Eating and sleeping behaviors: To appears to be normalizing and able to take mor e control of his ADLs. Group Attendance: Infrequent, but more than previous. Medication Side effects: See ROS below. Behavioral problems/significant events overnight: None reported. Staff Report: The patient is making some improvement and appears to be normalizing. He is brighter and more able to engage. Review Of Systems General: Denies fever or appetite changes Cardiovascular: Denies Chest pain or palpations GI: Denies Nausea, vomiting, or bowel changes Respiratory: Denies shortness of breath or cough Neuro: Denies dizziness, tremors Derm: Denies any rashes or pruritus : Denies any dysuria or urinary problems MSK: Denies any muscle tightness or stiffness HEENT: Denies any vision changes or headaches Psychotherapy None on this visit. Vital Signs Reviewed. Mental Status Examination General: Much improved hygiene. Speech: More fluid. Thought processes: Linear and logical MSK: No major signs of involuntary movements beyond some back movements that appear improved. Thought content: Future orientated Abstract reasoning, and computation: Intact Description of associations: Intact Description of abnormal or psychotic thoughts: Denies any suicidal or homicidal ideation. Denies any auditory or visual hallucinations. Does not appear to be responding to internal stimuli. Does not appear to be endorsing any bizarre or paranoid ideation. Judgment: Improved. Insight: Improved. Orientation: Alert and orientated 3 Cognition: Grossly normal Recent and remote memory: Intact Attention span and concentration: Intact Fund of knowledge: Adequate Mood: "okay" Affect: More bright and euthymic. Diagnoses Schizophrenia. Catatonia. Alcohol use disorder, unspecified. Rash, unspecified. Assessment and Plan Schizophrenia: Continue Abilify 20 mg daily, it appears to be helping quite a bit. We'll give patient court ordered Abilify Maintena 400 mg. Catatonia: The patient has been refusing. Alcohol use disorder: Not relevant at this time. Rash: Patient's rash appears to be improving after shower. Disposition Patient will be triaged for potential discharge. We'll need to get a hold of family, to determine if he has housing, as he has been improving well enough that he may not need long-term treatment at this time. Time Spent 15 minutes. Vital Signs Vital Signs Date Time Temp Pulse Resp B/P (MAP) Pulse Ox O2 Delivery O2 Flow Rate FiO2 09/04/19 08:11 Room Air 09/03/19 16:00 99.3 65 16 116/74 (88) Current Medications Current Medications Medications (Trade) Dose Ordered Sig/Carri Route PRN Reason Start Time Stop Time Status Last Admin Dose Admin Acetaminophen (Tylenol Tab) 650 mg Q6HP PRN PO HEADACHE or DISCOMFORT 07/28/19 15:15 Al Hydrox/Mg Hydrox/Simethicone (Mylanta) 30 ml Q4HP PRN PO HEARTBURN/INDIGESTION 07/28/19 15:15 Amlodipine Besylate (Norvasc) 2.5 mg DAILY PO 07/29/19 09:00 07/30/19 08:37 DC 07/30/19 08:30 Amlodipine Besylate (Norvasc) 5 mg DAILY PO 07/31/19 09:00 08/06/19 15:46 DC 08/05/19 09:30 Amlodipine Besylate (Norvasc) 10 mg DAILY PO 08/07/19 09:00 Aripiprazole (AbiLIFY) 5 mg DAILY PO 08/27/19 09:00 08/28/19 08:51 DC 08/28/19 08:38 Aripiprazole (AbiLIFY) 5 mg QHS PO 08/05/19 21:00 08/27/19 10:50 DC Aripiprazole (AbiLIFY) 10 mg DAILY PO 08/29/19 09:00 08/30/19 13:38 DC 08/30/19 09:37 Aripiprazole (AbiLIFY) 15 mg DAILY PO 08/31/19 09:00 09/02/19 09:04 DC 09/01/19 09:31 Aripiprazole (AbiLIFY) 20 mg DAILY PO 09/02/19 09:00 09/03/19 08:38 Benztropine Mesylate (Cogentin) 0.25 mg Q6HP PRN PO eps 08/27/19 13:00 Clozapine (Clozaril) 25 mg QHS PO 07/31/19 21:00 08/01/19 12:16 DC 07/31/19 21:33 Emollient Cream (Vanicream) APPLY TO AFFECTED AREAS TID TOP 08/12/19 21:00 Haloperidol (Haldol) 10 mg DAILY PRN IM REFUSES ORAL ABILIFY 08/27/19 11:30 08/27/19 11:47 Haloperidol (Haldol) 10 mg QHS PRN IM 08/27/19 11:00 08/27/19 11:17 DC Home Med (Med Rec Complete!) ASDIRECTED XX 07/28/19 12:45 07/28/19 12:44 DC Lorazepam (Ativan) 0.5 mg TID PO 07/29/19 16:00 07/29/19 13:08 DC Lorazepam (Ativan) 1 mg Q6H PO 07/28/19 22:00 07/29/19 13:09 DC 07/29/19 10:33 Lorazepam (Ativan) 1 mg Q6H PO 07/29/19 18:00 07/31/19 08:26 DC 07/31/19 05:51 Lorazepam (Ativan) 1 mg TID PO 07/31/19 16:00 08/18/19 14:51 DC 08/05/19 16:13 Magnesium Hydroxide (Milk Of Magnesia) 30 ml DAILYPRN PRN PO CONSTIPATION 07/28/19 15:15 Miscellaneous (Unresolved Clarification Entry) SEE LABEL COMMENTS DAILY XX 08/18/19 09:00 08/18/19 14:53 DC Nicotine (Nicoderm Cq 21mg) 1 patch DAILY TD 07/29/19 09:00 Non-Formulary Medication ( See Comment Field Below ) SEE COMMENTS SECTION 1T@10 XX 08/07/19 10:00 08/05/19 10:37 DC Non-Formulary Medication ( See Comment Field Below ) SEE LABEL COMMENTS DAILY XX 08/05/19 09:00 Olanzapine (ZyPREXA ZYDIS) 10 mg TIDP PRN PO ANXIETY/AGITATION 07/28/19 15:00 07/30/19 15:16 DC 07/28/19 21:39 Paliperidone (Invega) 3 mg BID PO 07/28/19 21:00 07/29/19 12:58 DC 07/29/19 09:12 Trazodone HCl (Desyrel) 50 mg QHSP PRN PO INSOMNIA 07/28/19 21:00 07/28/19 21:39 Allergies Coded Allergies: No Known Allergies (Unverified , 07/28/19) MICHELLE BUENO DO Sep 04, 2019 09:17
[2019-09-04] MEDS: ARIPiprazole 10 MG TAB PO SCH (09:20)
[2019-09-04] MEDS: VANICREAM MOISTURIZING SKIN CREAM 113GM TUBE TOP SCH ×3 (09:21→20:55)
[2019-09-04] MEDS: amLODIPine 10 MG TAB PO SCH (09:21)
[2019-09-04] MEDS ORDERED: ARIPiprazole MONOHYDRATE 400 MG INJ (ABILIFY)(J0401) IM ONE (11:00)
[2019-09-04 16:00] VITALS: BP 137/83
--- NOTE | 2019-09-05 08:47 | MHIPNPDOC ---
[facility] Progress Note Progress Note Bang Li Inpatient Progress Note Bang Li Select Gender MRN: N/A Date of : MM/DD/YYYY Date of Service: 09/05/2019 History of Present Illness Patient presented catatonic with a history of schizophrenia and significant mental health transfer from home. Interval History Narrative: The patient is met with in the group setting. He is brighter and has better hygiene, more interactive than previous, able to engage in more thorough interview. He is much more relatable, with good hygiene and has made strong improvements today. Affective: The patient grossly denies. Psychotic: The patient is much less disorganized and able to attend to his own needs. Anxiety: Denies any. Eating and sleeping behaviors: Normalizing. Group Attendance: Frequent with more groups attended than yesterday. Medication Side effects: See ROS below. Behavioral problems/significant events overnight: None reported. Staff Report: The patient has been normalizing, resuming care for himself, needing very little engagement. Review Of Systems General: Denies fever or appetite changes Cardiovascular: Denies Chest pain or palpitations GI: Denies Nausea, vomiting, or bowel changes Respiratory: Denies shortness of breath or cough Neuro: Denies dizziness, tremors Derm: Denies any rashes or pruritus : Denies any dysuria or urinary problems MSK: Denies any muscle tightness or stiffness HEENT: Denies any vision changes or headaches Psychotherapy None on this visit. Vital Signs Reviewed. Mental Status Examination General: Much improved hygiene. Speech: More fluid. Thought processes: Linear and logical MSK: No major signs of involuntary movements beyond some back movements that appear improved. Thought content: Future orientated Abstract reasoning, and computation: Intact Description of associations: Intact Description of abnormal or psychotic thoughts: Denies any suicidal or homicidal ideation. Denies any auditory or visual hallucinations. Does not appear to be responding to internal stimuli. Does not appear to be endorsing any bizarre or paranoid ideation. Judgment: Improved. Insight: Improved. Orientation: Alert and orientated 3 Cognition: Grossly normal Recent and remote memory: Intact Attention span and concentration: Intact Fund of knowledge: Adequate Mood: "okay" Affect: More bright and euthymic. Diagnoses Schizophrenia. Catatonia. Alcohol use disorder, unspecified. Rash, unspecified. Assessment and Plan Schizophrenia: Continue Abilify 20 mg daily. Catatonia: Resolved. Alcohol use disorder: Not relevant at this time. Rash: Resolved. Disposition Patient will be discharged once weather clears, currently travel advisory prevents us from sending patient back to brother's home, coordinated with brother for patient to return home, contention upon continuing to take his medications. Time Spent 15 minutes. Vital Signs Vital Signs Date Time Temp Pulse Resp B/P (MAP) Pulse Ox O2 Delivery O2 Flow Rate FiO2 09/04/19 16:00 98.6 80 16 137/83 (101) 09/04/19 08:11 Room Air Current Medications Current Medications Medications (Trade) Dose Ordered Sig/Carri Route PRN Reason Start Time Stop Time Status Last Admin Dose Admin Acetaminophen (Tylenol Tab) 650 mg Q6HP PRN PO HEADACHE or DISCOMFORT 07/28/19 15:15 Al Hydrox/Mg Hydrox/Simethicone (Mylanta) 30 ml Q4HP PRN PO HEARTBURN/INDIGESTION 07/28/19 15:15 Amlodipine Besylate (Norvasc) 2.5 mg DAILY PO 07/29/19 09:00 07/30/19 08:37 DC 07/30/19 08:30 Amlodipine Besylate (Norvasc) 5 mg DAILY PO 07/31/19 09:00 08/06/19 15:46 DC 08/05/19 09:30 Amlodipine Besylate (Norvasc) 10 mg DAILY PO 08/07/19 09:00 09/04/19 09:21 Aripiprazole (AbiLIFY) 5 mg DAILY PO 08/27/19 09:00 08/28/19 08:51 DC 08/28/19 08:38 Aripiprazole (AbiLIFY) 5 mg QHS PO 08/05/19 21:00 08/27/19 10:50 DC Aripiprazole (AbiLIFY) 10 mg DAILY PO 08/29/19 09:00 08/30/19 13:38 DC 08/30/19 09:37 Aripiprazole (AbiLIFY) 15 mg DAILY PO 08/31/19 09:00 09/02/19 09:04 DC 09/01/19 09:31 Aripiprazole (AbiLIFY) 20 mg DAILY PO 09/02/19 09:00 09/04/19 09:20 Benztropine Mesylate (Cogentin) 0.25 mg Q6HP PRN PO eps 08/27/19 13:00 Clozapine (Clozaril) 25 mg QHS PO 07/31/19 21:00 08/01/19 12:16 DC 07/31/19 21:33 Emollient Cream (Vanicream) APPLY TO AFFECTED AREAS TID TOP 08/12/19 21:00 09/04/19 15:32 Haloperidol (Haldol) 10 mg DAILY PRN IM REFUSES ORAL ABILIFY 08/27/19 11:30 08/27/19 11:47 Haloperidol (Haldol) 10 mg QHS PRN IM 08/27/19 11:00 08/27/19 11:17 DC Home Med (Med Rec Complete!) ASDIRECTED XX 07/28/19 12:45 07/28/19 12:44 DC Lorazepam (Ativan) 0.5 mg TID PO 07/29/19 16:00 07/29/19 13:08 DC Lorazepam (Ativan) 1 mg Q6H PO 07/28/19 22:00 07/29/19 13:09 DC 07/29/19 10:33 Lorazepam (Ativan) 1 mg Q6H PO 07/29/19 18:00 07/31/19 08:26 DC 07/31/19 05:51 Lorazepam (Ativan) 1 mg TID PO 07/31/19 16:00 08/18/19 14:51 DC 08/05/19 16:13 Magnesium Hydroxide (Milk Of Magnesia) 30 ml DAILYPRN PRN PO CONSTIPATION 07/28/19 15:15 Miscellaneous (Unresolved Clarification Entry) SEE LABEL COMMENTS DAILY XX 08/18/19 09:00 08/18/19 14:53 DC Nicotine (Nicoderm Cq 21mg) 1 patch DAILY TD 07/29/19 09:00 Non-Formulary Medication ( See Comment Field Below ) SEE COMMENTS SECTION 1T@10 XX 08/07/19 10:00 08/05/19 10:37 DC Non-Formulary Medication ( See Comment Field Below ) SEE LABEL COMMENTS DAILY XX 08/05/19 09:00 Olanzapine (ZyPREXA ZYDIS) 10 mg TIDP PRN PO ANXIETY/AGITATION 07/28/19 15:00 07/30/19 15:16 DC 07/28/19 21:39 Paliperidone (Invega) 3 mg BID PO 07/28/19 21:00 07/29/19 12:58 DC 07/29/19 09:12 Trazodone HCl (Desyrel) 50 mg QHSP PRN PO INSOMNIA 07/28/19 21:00 07/28/19 21:39 Allergies Coded Allergies: No Known Allergies (Unverified , 07/28/19) MICHELLE BUENO DO Sep 05, 2019 08:47
[2019-09-05] MEDS: NICOTINE 21MG/24HR 1 EA TRANSDERMAL TD SCH (09:00)
[2019-09-05] MEDS: **PENDING PPD ENTRY XX SCH (09:00)
[2019-09-05] MEDS: VANICREAM MOISTURIZING SKIN CREAM 113GM TUBE TOP SCH ×3 (09:00→20:23)
[2019-09-05] MEDS: amLODIPine 10 MG TAB PO SCH (09:00)
[2019-09-05] MEDS: ARIPiprazole 10 MG TAB PO SCH (09:14)
[2019-09-05 18:01] VITALS: BP 114/77
[2019-09-06] MEDS: NICOTINE 21MG/24HR 1 EA TRANSDERMAL TD SCH (09:00)
[2019-09-06] MEDS: VANICREAM MOISTURIZING SKIN CREAM 113GM TUBE TOP SCH ×3 (09:00→20:30)
[2019-09-06] MEDS: **PENDING PPD ENTRY XX SCH (09:00)
--- NOTE | 2019-09-06 09:13 | MHIPNPDOC ---
[facility] Progress Note Progress Note DATE OF SERVICE: 09/06/19 HISTORY: . VITAL SIGNS: See below. NEW TEST RESULTS: . CURRENT MEDICATIONS: See below. MENTAL STATUS EXAMINATION: Patient is a -year old male, who is . Speech: Is . Language skills are . Thought processes including: . Thought content: . Abstract reasoning, and computation: . Description of associ ations: . Description of abnormal or psychotic thoughts: . Judgment: . Insight: [very limited, good, fair. poor]. Orientation: . Recent and remote memory: . Attention span and concentration: . Language: . Fund of knowledge: . Mood: . Affect: . DIAGNOSES: 1. . 2. . 3. . ASSESSMENT: MANAGEMENT PLAN: . TIME SPENT: minutes. Vital Signs Vital Signs Date Time Temp Pulse Resp B/P (MAP) Pulse Ox O2 Delivery O2 Flow Rate FiO2 09/05/19 18:01 100.0 59 18 114/77 (89) 09/04/19 08:11 Room Air Current Medications Current Medications Medications (Trade) Dose Ordered Sig/Carri Route PRN Reason Start Time Stop Time Status Last Admin Dose Admin Acetaminophen (Tylenol Tab) 650 mg Q6HP PRN PO HEADACHE or DISCOMFORT 07/28/19 15:15 Al Hydrox/Mg Hydrox/Simethicone (Mylanta) 30 ml Q4HP PRN PO HEARTBURN/INDIGESTION 07/28/19 15:15 Amlodipine Besylate (Norvasc) 2.5 mg DAILY PO 07/29/19 09:00 07/30/19 08:37 DC 07/30/19 08:30 Amlodipine Besylate (Norvasc) 5 mg DAILY PO 07/31/19 09:00 08/06/19 15:46 DC 08/05/19 09:30 Amlodipine Besylate (Norvasc) 10 mg DAILY PO 08/07/19 09:00 09/04/19 09:21 Aripiprazole (AbiLIFY) 5 mg DAILY PO 08/27/19 09:00 08/28/19 08:51 DC 08/28/19 08:38 Aripiprazole (AbiLIFY) 5 mg QHS PO 08/05/19 21:00 08/27/19 10:50 DC Aripiprazole (AbiLIFY) 10 mg DAILY PO 08/29/19 09:00 08/30/19 13:38 DC 08/30/19 09:37 Aripiprazole (AbiLIFY) 15 mg DAILY PO 08/31/19 09:00 09/02/19 09:04 DC 09/01/19 09:31 Aripiprazole (AbiLIFY) 20 mg DAILY PO 09/02/19 09:00 09/05/19 09:14 Benztropine Mesylate (Cogentin) 0.25 mg Q6HP PRN PO eps 08/27/19 13:00 Clozapine (Clozaril) 25 mg QHS PO 07/31/19 21:00 08/01/19 12:16 DC 07/31/19 21:33 Emollient Cream (Vanicream) APPLY TO AFFECTED AREAS TID TOP 08/12/19 21:00 09/04/19 15:32 Haloperidol (Haldol) 10 mg DAILY PRN IM REFUSES ORAL ABILIFY 08/27/19 11:30 08/27/19 11:47 Haloperidol (Haldol) 10 mg QHS PRN IM 08/27/19 11:00 08/27/19 11:17 DC Home Med (Med Rec Complete!) ASDIRECTED XX 07/28/19 12:45 07/28/19 12:44 DC Lorazepam (Ativan) 0.5 mg TID PO 07/29/19 16:00 07/29/19 13:08 DC Lorazepam (Ativan) 1 mg Q6H PO 07/28/19 22:00 07/29/19 13:09 DC 07/29/19 10:33 Lorazepam (Ativan) 1 mg Q6H PO 07/29/19 18:00 07/31/19 08:26 DC 07/31/19 05:51 Lorazepam (Ativan) 1 mg TID PO 07/31/19 16:00 08/18/19 14:51 DC 08/05/19 16:13 Magnesium Hydroxide (Milk Of Magnesia) 30 ml DAILYPRN PRN PO CONSTIPATION 07/28/19 15:15 Miscellaneous (Unresolved Clarification Entry) SEE LABEL COMMENTS DAILY XX 08/18/19 09:00 08/18/19 14:53 DC Nicotine (Nicoderm Cq 21mg) 1 patch DAILY TD 07/29/19 09:00 Non-Formulary Medication ( See Comment Field Below ) SEE COMMENTS SECTION 1T@10 XX 08/07/19 10:00 08/05/19 10:37 DC Non-Formulary Medication ( See Comment Field Below ) SEE LABEL COMMENTS DAILY XX 08/05/19 09:00 Olanzapine (ZyPREXA ZYDIS) 10 mg TIDP PRN PO ANXIETY/AGITATION 07/28/19 15:00 07/30/19 15:16 DC 07/28/19 21:39 Paliperidone (Invega) 3 mg BID PO 07/28/19 21:00 07/29/19 12:58 DC 07/29/19 09:12 Trazodone HCl (Desyrel) 50 mg QHSP PRN PO INSOMNIA 07/28/19 21:00 07/28/19 21:39 Allergies Coded Allergies: No Known Allergies (Unverified , 07/28/19) MICHELLE BUENO DO Sep 06, 2019 09:13
[2019-09-06] MEDS: ARIPiprazole 10 MG TAB PO SCH (10:02)
[2019-09-06 10:04] VITALS: BP 129/84
[2019-09-06] MEDS: amLODIPine 10 MG TAB PO SCH (10:04)
--- NOTE | 2019-09-06 12:29 | MHDSPDOC ---
[facility] Discharge Summary Discharge Summary DATE OF ADMISSION: Jul 28, 2019 at 15:08 DATE OF DISCHARGE: 09/07/19 Bang Li Discharge Bang Li Select Gender MRN: N/A Date of : MM/DD/YYYY Date of Service: 09/06/2019 Diagnoses Schizophrenia. Catatonia. Alcohol use disorder, unspecified. Rash, unspecified. History of Present Illness Patient presented catatonic with a history of schizophrenia and significant mental health transfer from home. Consultants Involved Hospitalist/PCP screening Treatment and Progress On The Unit The patient was admitted to the inpatient mental health unit somewhat catatonic, refusing to eat and generally not engaging with any attempts at getting him to do ADLs. He was bizarre and would only state the statement over "I want to live." The patient was initially open to taking medications such as Ativan and Clozaril, however, he quickly refused. The patient was admitted to the inpatient mental health unit after being transferred from [place], he reportedly had been found starving in a basement. During our initial observations he had no self care, would not eat or drink and was needing prompting even the most basic care. The patient initially took Ativan which improved him somewhat, Clozaril was tried but he did not tolerate it well. The patient subsequently refused all medications and then was able to eat when food was directly offered to him, however, he was fisher troll line walked around the unit stating 5 phrases over and over, with no variation thereof. The patient generally was bizarre and refused medications, he was taken to court and treatment of objection was ordered. The patient was treated with Abilify up to 20 mg daily which produced profound effects, the patient began taking care of himself, showered for the first time in nearly a month and fed himself, he became friendly and amenable, speaking normally without any hesitation and the signs of psychosis resolved quickly. He was given an injectable Abilify Maintena 400 mg every month, that will need to be continued just prior to his discharge. The patient made strong strides and eventually we were able to get into contact with his brother, who allowed the patient to return to live with him contention upon taking his medication. We gave the brother the information for the AOT program as it appears that the patient would benefit greatly from this as he does very well with medications. The patient then was triaged for discharge, however, due to inclement weather the patient was unable to leave, however, arrangements were made to send the patient the next day once the weather had cleared in a [employer] cab. The patient did well and returned to a normal mental status exam. He was thankful and friendly on his last evaluation with me. He will be allowed to be discharged if he does not demonstrate any concerning behavior prior to discharge. Discharge Assessment The patient a 44-year-old man with a long history of schizophrenia presents psychotic and catatonic, after he is treated with Abilify he returns to a normal mental status exam, has good insight into the situation and takes care of himself well. He never had any suicidal or homicidal ideation and generally denied any auditory or visual hallucinations, but was fairly disorganized. The patient on the final assessment prior to discharge did not meet involuntary criteria as he had a normal mental status exam, was well medicated and had a sufficient plan for when he returned home. A safe discharge was arranged and the patient was cooperative with this process. He declined further voluntary admission and thus was discharged to [facility] after we had educated the family on potential alternatives to help continuous stability. His long-acting injectable will likely ensure at least a month or more of stability if he stops taking his medications. This appears to have been a pattern for this individual from his previous hospitalizations, although he has declined for us to look at those records. Mental Status Examination General: Well dressed with good hygiene Speech: Spontaneous and fluid Thought processes: Linear and logical MSK: Smooth and coordinated gait, no signs of tremors or involuntary orofacial movements Thought content: Future orientated Abstract reasoning, and computation: Intact Description of associations: Intact Description of abnormal or psychotic thoughts: Denies any suicidal or homicidal ideation. Denies any auditory or visual hallucinations. Does not appear to be responding to internal stimuli. Does not appear to be endorsing any bizarre or paranoid ideation. Judgment: fair Insight: fair Orientation: Alert and orientated 3 Cognition: Grossly normal Recent and remote memory: Intact Attention span and concentration: Intact Fund of knowledge: Adequate Mood: "okay" Affect: Euthymic with a full range Follow Up The social work team worked during the predischarge meeting in order to evaluate for further issues of lethality address them fully before discharge. They worked on safety planning with the patient's family members in order to ensure that the patient will have a safe and effective discharge. Time Spent The amount of time spent in the coordination of care for this patient was approximately 60 minutes. Vital Signs/I&Os Vital Signs Date Time Temp Pulse Resp B/P (MAP) Pulse Ox O2 Delivery O2 Flow Rate FiO2 09/06/19 10:04 68 129/84 09/05/19 18:01 100.0 18 09/04/19 08:11 Room Air Medications Scheduled Amlodipine Besylate (Amlodipine Besylate) 10 Mg Tablet, 10 MG PO DAILY for htn for 7 Days, #7 Aripiprazole (Aripiprazole) 20 Mg Tablet, 20 MG PO DAILY for thoughts for 7 Days, #7 Aripiprazole (Abilify Maintena) 400 Mg Suser.syr, 400 MG IM Q4WKS for thought for 28 Days, #400 Nicotine (Nicotine Patch) 21 Mg Patch.td24, 1 PATCH TD DAILY for tobacco for 30 Days, #30 Scheduled PRN Benztropine Mesylate (Benztropine Mesylate) 0.5 Mg Tablet, 0.25 MG PO Q6HP PRN for eps for 7 Days, #7 Allergies Coded Allergies: No Known Allergies (Unverified , 07/28/19) MICHELLE BUENO DO Sep 06, 2019 12:29
[2019-09-06] MEDS ORDERED: ABIL1INJ2 IM (13:03)
[2019-09-06] MEDS ORDERED: ARIP1TAB2 PO (13:03)
[2019-09-06] MEDS ORDERED: NICO21PAT TD (13:03)
[2019-09-06] MEDS ORDERED: BENZ0.5T23 PO (13:03)
[2019-09-06] MEDS ORDERED: AMLO10TA5 PO (13:03)
[2019-09-07 06:41] VITALS: BP 117/56
[2019-09-07] MEDS: NICOTINE 21MG/24HR 1 EA TRANSDERMAL TD SCH (08:36)
[2019-09-07] MEDS: VANICREAM MOISTURIZING SKIN CREAM 113GM TUBE TOP SCH (09:00)
[2019-09-07] MEDS: **PENDING PPD ENTRY XX SCH (09:00)
[2019-09-07] MEDS: amLODIPine 10 MG TAB PO SCH (09:00)
[2019-09-07] MEDS: ARIPiprazole 10 MG TAB PO SCH (09:18)
== END 2019-09-07 10:42 | disposition home or self-care (01) | DRG 750 ==
LOC: M ED 11:28 → M ED INP 15:08 → M PSY 16:00
PROVIDERS: ADMIT Psychiatry & Neurology Psychiatry; ATTEND Psychiatry & Neurology Addiction Medicine
DX: F20.2 Catatonic schizophrenia (principal); Z91.14 Patient's other noncompliance with medication regimen; I10 Essential (primary) hypertension; Z91.19 Patient's noncompliance with other medical treatment and regimen; F10.10 Alcohol abuse, uncomplicated; R53.83 Other fatigue; R33.9 Retention of urine, unspecified; R73.9 Hyperglycemia, unspecified; R21 Rash and other nonspecific skin eruption; Z81.8 Family history of other mental and behavioral disorders; Z91.5 Personal history of self-harm